=== PATIENT | female | born 1965 | race African-American/Black ===

== ENCOUNTER 2016-12-21 17:58 | Inpatient (IN) | payer OTHER ==
[~2016-12-21] VITALS: Ht 162.6 cm; Wt 97.0 kg
[~2016-12-21 17:58] MED LIST: CIPR500T4 PO; HYDRO10 PO; LAMO150T PO; LAMO25TA PO; LORTA5 PO; NORV5TAB PO; OXCA600T PO; PHEN100 PO; ZOFR4TAB3 SL
[2016-12-21 18:13] VITALS: BP 116/76; PULSE 90; RESP 18; TEMP 98.3; O2SAT 100
[2016-12-21] MEDS ORDERED: SODIUM CHLOR 0.9% 1000 ML INJ 1,000 ML IV SCH (18:17)
[2016-12-21] MEDS ORDERED: TRIL600T PO (18:28)
[2016-12-21] MEDS ORDERED: HYDR5TAB64 PO (18:28)
[2016-12-21] MEDS ORDERED: LAMO25TA PO (18:28)
[2016-12-21] MEDS ORDERED: SODIUM CHLORIDE 0.9% FLUSH 10 ML FLUSH IV FLUSH PRN ×2 (18:30→21:00)
[2016-12-21] MEDS ORDERED: SODIUM CHLOR 0.9% 1000 ML INJ 1,000 ML IV ONE (18:30)
--- NOTE | 2016-12-21 18:30 | PD ---
HPI Chief Complaint: generalized weakness Time Seen by Provider: 18:07 Travel History International Travel<30 days: No Contact w/Intl Traveler<30days: No History of Present Illness HPI Patient is a 51-year-old female with history of seizures, brain problems, chronic feet pain, who was brought to the emergency room by her with complaints of generalized weakness. Patient reports that she was diagnosed with a "something wrong with her brain" and would like her brain evaluated. Patient's reports that patient did see a neurologist and was told that she needed to see a neurosurgeon, reports that she has not seen a neurosurgeon yet. Patient's also reports that patient is weak, reports that she has had overall decreased by mouth intake over the past few months. does not believe the patient is eating enough food to "sustain life", reports "she's loosing too much weight." also reports that patient has chronic foot pain, she does have bunion to left foot. Reports "i need her feet looked at too because she keeps complaining of pain." Reports that she has been having "feet pain" for years. is concerned for overall generalized weakness as well as decompensation patient. Patient reports that she feels fine and has no complaints at this time. PFSH Past Medical History Anxiety: Yes Cancer: No Cardiovascular Problems: No Cerebrovascular Accident: No Diabetes: No Endocrine: No Genitourinary: No Headaches: Yes Hypertension: Yes Musculoskeletal: No Neurologic: Yes Psychiatric: No Reproductive: No Respiratory: No Immunizations Current: Yes Seizures: Yes Thyroid Disease: No Past Surgical History Other Surgery: No (LEFT FOOT BUNION REMOVED) Social History Alcohol Use: Yes (daily) Tobacco Use: Yes (1 PACK PER 3 DAYS) Substance Use: Yes (marijuana) Allergies-Medications (Allergen,Severity, Reaction): Coded Allergies: No Known Allergies (Unverified , 12/21/16) Reported Meds & Prescriptions Reported Meds & Active Scripts Active Reported Lamotrigine 25 Mg Tab 25 Mg PO DAILY Hydrocortisone 5 Mg Tab 5 Mg PO BID Take with food to decrease GI upset Trileptal (Oxcarbazepine) 600 Mg Tab 600 Mg PO BID Review of Systems General / Constitutional: No: Fever Eyes: No: Visual changes HENT: No: Headaches Cardiovascular: No: Chest Pain or Discomfort Respiratory: No: Shortness of Breath Gastrointestinal: Positive: Other (weight loss), No: Abdominal Pain Genitourinary: No: Dysuria Musculoskeletal: Positive: Pain (bilateral feet pain) Skin: No Rash Neurologic: Positive: Weakness Psychiatric: No: Depression Endocrine: No: Polydipsia Hematologic/Lymphatic: No: Easy Bruising Physical Exam Narrative GENERAL: Patient confused at bedside, alert only to person and place SKIN: Focused skin assessment warm/dry. HEAD: Atraumatic. Normocephalic. EYES: Pupils equal and round. No scleral icterus. No injection or drainage. ENT: No nasal bleeding or discharge. Mucous membranes pink and moist. NECK: Trachea midline. No JVD. CARDIOVASCULAR: Regular rate and rhythm. No murmur appreciated. RESPIRATORY: No accessory muscle use. Clear to auscultation. Breath sounds equal bilaterally. GASTROINTESTINAL: Abdomen soft, non-tender, nondistended. Hepatic and splenic margins not palpable. MUSCULOSKELETAL: No obvious deformities. No clubbing. No cyanosis. patient with swelling and bruising to b/l ankles NEUROLOGICAL: Awake and alert. No obvious cranial nerve deficits. Motor grossly within normal limits. Normal speech. Data Data Last Documented VS Vital Signs Date Time Temp Pulse Resp B/P Pulse Ox O2 Delivery O2 Flow Rate FiO2 12/21/16 18:22 93 18 100 Room Air 12/21/16 18:13 98.3 116/76 Orders Complete Blood Count With Diff (12/21/16 18:17) Comprehensive Metabolic Panel (12/21/16 18:17) Lipase (12/21/16 18:17) Prothrombin Time / Inr (Pt) (12/21/16 18:17) Act Partial Throm Time (Ptt) (12/21/16 18:17) Urinalysis - C+S If Indicated (12/21/16 18:17) Iv Access Insert/Monitor (12/21/16 18:17) Sodium Chlor 0.9% 1000 Ml Inj (Ns 1000 M (12/21/16 18:17) Sodium Chloride 0.9% Flush (Ns Flush) (12/21/16 18:30) Electrocardiogram (12/21/16 18:17) Chest, Single Ap (12/21/16 18:17) Sodium Chlor 0.9% 1000 Ml Inj (Ns 1000 M (12/21/16 18:30) Ct Brain W/O Iv Contrast(Rout) (12/21/16 18:30) Phenytoin (Dilantin) (12/21/16 18:31) Carbamazepine (Tegretol) (12/21/16 18:31) Ankle, Complete ([id number]) (12/21/16 ) Ankle, Complete ([id number]) (12/21/16 ) MDM Medical Decision Making Medical Screen Exam Complete: Yes Emergency Medical Condition: Yes Differential Diagnosis Differential includes seizure, intracranial hemorrhage, brain mass, electrolyte abnormality, UTI, chronic pain, pituitary hemorrhage Narrative Course Patient is a 51-year-old female who presents to emergency room with her with complaints of generalized weakness. reports that patient has been decompensating overall for the past year. Patient reports that he was told that patient need to see a neurosurgeon, that she has not seen one yet. Also reports the patient has chronic pain to her bilateral feet. reports concerns as patient has had overall decreased by mouth intake over the past few weeks. can only time me that patient has a history of "brain problems" as well as seizure history. Upon review of patient's previous records, it appears the patient did have a history of a pituitary tumor with hemorrhage, seizures as well as hypertension. Patient was seen in February 07, [address] Zhao and was told to have CT scans of her brain every 6 months she has history of brain tumors. CT at that time showed concerns for brain hemorrhage. MRI was obtained on 09/05/15 which showed pituitary hemorrhage. CT of the head ordered as patient's reports concerns that patient is more confused than baseline. Labs ordered to evaluate for electrolyte abnormalities as reports that patient has had overall decreased by mouth intake for the past few weeks. UA ordered to evaluate for possible signs of infection. Patient does have history of seizures, will check her antiepileptic levels as well Patient also with pain to b/l ankles with bruising - xray ordered to evaluate for possible fracture Cassy Rendon DO Dec 21, 2016 18:30
--- NOTE | 2016-12-21 18:53 | RADRPT ---
EXAM DATE/TIME: 12/21/2016 18:33 [facility] COMPARISON: CHEST SINGLE AP, February 01, 2015, 9:22. INDICATIONS : Cough. MEDICAL HISTORY : None. SURGICAL HISTORY : None. ENCOUNTER: Initial ACUITY: 1 day PAIN SCORE: 0/10 LOCATION: Bilateral chest FINDINGS: A single view of the chest demonstrates the lungs to be symmetrically aerated without evidence of mas s, infiltrate or effusion. The cardiomediastinal contours are unremarkable. Osseous structures are intact. CONCLUSION: The lungs are clear. Shlomo Ojeda MD on December 21, 2016 at 18:50 Board Certified Radiologist. This report was verified electronically.
[2016-12-21 19:00] VITALS: BP 117/69; PULSE 72; RESP 14; O2SAT 98
--- NOTE | 2016-12-21 19:08 | RADRPT ---
EXAM DATE/TIME: 12/21/2016 18:46 [facility] COMPARISON: No previous studies available for comparison. INDICATIONS : Right ankle pain, denies injury MEDICAL HISTORY : None. SURGICAL HISTORY : None. ENCOUNTER: Initial ACUITY: 1 month PAIN SCORE: 8/10 LOCATION: Right Ankle FINDINGS: Three view exam was performed of the right ankle. The bony structures are in normal alignment. No e vidence of fracture, dislocation, or soft tissue swelling. The ankle mortise is intact. No radiopaq ue foreign bodies are seen. Bony mineralization is normal. CONCLUSION: Negative exam. Shlomo Ojeda MD on December 21, 2016 at 19:06 Board Certified Radiologist. This report was verified electronically.
--- NOTE | 2016-12-21 19:09 | RADRPT ---
EXAM DATE/TIME: 12/21/2016 18:48 [facility] COMPARISON: No previous studies available for comparison. INDICATIONS : Left ankle pain, denies injury MEDICAL HISTORY : None. SURGICAL HISTORY : None. ENCOUNTER: Initial ACUITY: 1 month PAIN SCORE: 8/10 LOCATION: Left Ankle FINDINGS: There is in oblique fracture of the distal fibula and there is regional osteopenia of the distal fibu la. No significant angulation or displacement. Moderate soft tissue swelling is present laterally. The distal tibia and talus is intact. CONCLUSION: Nondisplaced fracture of the distal fibula. Shlomo Ojeda MD on December 21, 2016 at 19:06 Board Certified Radiologist. This report was verified electronically.
--- NOTE | 2016-12-21 19:16 | PD ---
Physical Exam Narrative RECTAL EXAM: No masses or tenderness, stool is brown. Hemaprompt was done to evaluate for Hemoccult-positive stool. This was Hemoccult negative. The control was positive Data Data Last Documented VS Vital Signs Date Time Temp Pulse Resp B/P Pulse Ox O2 Delivery O2 Flow Rate FiO2 12/21/16 18:22 93 18 100 Room Air 12/21/16 18:13 98.3 116/76 Orders Complete Blood Count With Diff (12/21/16 18:17) Comprehensive Metabolic Panel (12/21/16 18:17) Lipase (12/21/16 18:17) Prothrombin Time / Inr (Pt) (12/21/16 18:17) Act Partial Throm Time (Ptt) (12/21/16 18:17) Urinalysis - C+S If Indicated (12/21/16 18:17) Iv Access Insert/Monitor (12/21/16 18:17) Sodium Chlor 0.9% 1000 Ml Inj (Ns 1000 M (12/21/16 18:17) Sodium Chloride 0.9% Flush (Ns Flush) (12/21/16 18:30) Electrocardiogram (12/21/16 18:17) Chest, Single Ap (12/21/16 18:17) Sodium Chlor 0.9% 1000 Ml Inj (Ns 1000 M (12/21/16 18:30) Ct Brain W/O Iv Contrast(Rout) (12/21/16 18:30) Phenytoin (Dilantin) (12/21/16 18:31) Carbamazepine (Tegretol) (12/21/16 18:31) Ankle, Complete (Lad0imt) (12/21/16 ) Ankle, Complete (Bui1imr) (12/21/16 ) Thyroid Stimulating Hormone (12/21/16 18:58) Ice/Cold Pack (12/21/16 19:16) Crutches (12/21/16 19:16) Splint Or Brace Apply/Monitor (12/21/16 19:17) Type And Screen (12/21/16 19:50) Blood Product Administration .UPON TRANSFUSION (12/21/16 19:50) Sodium Chlor 0.9% 250 Ml Inj (Ns 250 Ml (12/21/16 20:00) Red Blood Cells (Rbc) (12/21/16 20:40) Potassium Chloride Eff (K-Lyte Cl Eff) (12/21/16 20:45) Admit To Inpatient (12/21/16 ) Code Status (12/21/16 20:51) Vital Signs (Adult) Q4H (12/21/16 20:51) Activity Oob With Assistance (12/21/16 20:51) Diet Heart Healthy (12/22/16 Breakfast) Sodium Chloride 0.9% Flush (Ns Flush) (12/21/16 21:00) Sodium Chloride 0.9% Flush (Ns Flush) (12/21/16 21:00) Acetaminophen (Tylenol) (12/21/16 21:00) Ondansetron Inj (Zofran Inj) (12/21/16 21:00) Comprehensive Metabolic Panel (12/22/16 06:00) Complete Blood Count With Diff (12/22/16 06:00) Pt Request For Service (12/21/16 20:51) Case Management Consult (12/21/16 20:51) Scd Bilateral/Knee High MANUELA.BID (12/21/16 20:51) Jay Jay Bilateral/Knee High MANUELA.QSHIFT (12/21/16 20:51) Acetaminophen (Tylenol) (12/21/16 21:00) Naloxone Inj (Narcan Inj) (12/21/16 21:00) Inpatient Certification (12/21/16 ) Albuterol-Ipratropium Neb (Duoneb Neb) (12/21/16 21:00) Enalaprilat Inj (Vasotec Inj) (12/21/16 21:00) Admit Order (Ed Use Only) (12/21/16 20:52) Lamotrigine (Lamictal) (12/22/16 09:00) Oxcarbazepine (Trileptal) (12/21/16 21:00) Labs Laboratory Tests Test 12/21/16 12/21/16 19:10 20:00 White Blood Count 7.9 TH/MM3 Red Blood Count 1.51 MIL/MM3 Hemoglobin 5.4 GM/DL Hematocrit 15.5 % Mean Corpuscular Volume 102.4 FL Mean Corpuscular Hemoglobin 35.7 PG Mean Corpuscular Hemoglobin 34.8 % Concent Red Cell Distribution Width 15.2 % Platelet Count 219 TH/MM3 Mean Platelet Volume 8.1 FL Neutrophils (%) (Auto) 77.2 % Lymphocytes (%) (Auto) 19.1 % Monocytes (%) (Auto) 3.4 % Eosinophils (%) (Auto) 0.0 % Basophils (%) (Auto) 0.3 % Neutrophils # (Auto) 6.1 TH/MM3 Lymphocytes # (Auto) 1.5 TH/MM3 Monocytes # (Auto) 0.3 TH/MM3 Eosinophils # (Auto) 0.0 TH/MM3 Basophils # (Auto) 0.0 TH/MM3 CBC Comment DIFF FINAL Differential Comment Prothrombin Time 11.5 SEC Prothromb Time International 1.0 RATIO Ratio Activated Partial 28.4 SEC Thromboplast Time Sodium Level 137 MEQ/L Potassium Level 2.7 MEQ/L Chloride Level 96 MEQ/L Carbon Dioxide Level 29.7 MEQ/L Anion Gap 11 MEQ/L Blood Urea Nitrogen 12 MG/DL Creatinine 0.69 MG/DL Estimat Glomerular Filtration 108 ML/MIN Rate Random Glucose 113 MG/DL Calcium Level 8.4 MG/DL Total Bilirubin 1.0 MG/DL Aspartate Amino Transf 29 U/L (AST/SGOT) Alanine Aminotransferase 19 U/L (ALT/SGPT) Alkaline Phosphatase 133 U/L Total Protein 6.4 GM/DL Albumin 2.1 GM/DL Lipase 56 U/L Phenytoin (Dilantin) Level 0.4 MCG/ML Carbamazepine (Tegretol) Level LESS THAN 0.5 MCG/ML Blood Type A POSITIVE Antibody Screen NEGATIVE Crossmatch Leukocyte-Reduced Red Blood Cells Blood Bank Comment [facility] Medical Record Reviewed: Yes Supervised Visit with TRINA: No Interpretation(s) Last Impressions Head CT 12/21/16 1830 Signed Impressions: Service Date/Time: Wednesday, December 21, 2016 18:59 - CONCLUSION: 1. No acute findings in the brain. Age-appropriate atrophy. 2. Stable appearance 2 hyperdense sella, unchanged from August 2015. 3. Opacification of the sphenoid sinus with possible air-fluid level, a new finding. Shlomo Ojeda MD Chest X-Ray 12/21/16 1817 Signed Impressions: Service Date/Time: Wednesday, December 21, 2016 18:33 - CONCLUSION: The lungs are clear. Shlomo Ojeda MD Ankle X-Ray 12/21/16 0000 Signed Impressions: Service Date/Time: Wednesday, December 21, 2016 18:46 - CONCLUSION: Negative exam. Shlomo Ojeda MD Ankle X-Ray 12/21/16 0000 Signed Impressions: Service Date/Time: Wednesday, December 21, 2016 18:48 - CONCLUSION: Nondisplaced fracture of the distal fibula. Shlomo Ojeda MD Narrative Course During the course of the patients emergency department visit, the patients history, examination, and differential diagnosis were reviewed with the patient. The patient had IV access obtained and blood work sent for analysis. The patient was placed on a shelter monitor with oximetry and blood pressure monitoring. The patient was checked out to me by Dr. Rendon who requested that I review the patient's laboratory studies and disposition the patient. She reports that the patient came in with generalized weakness, reported poor by mouth intake, increase in alteration of mentation. The patient at baseline has altered mental status according to herself and the family. The patient according to the record has a history of pituitary hemorrhage in August 2015. The patient had an EKG done on arrival. The patient's EKG shows an incomplete right bundle branch block, nonspecific ST-T wave abnormalities, downsloping of ST segment V1, V2, V3. The patient was initially provided 2 L in total of normal saline IV fluid bolus. The patients laboratory studies were reviewed and remarkable for a hemoglobin of 5.4. The patient was typed and screened, typed and crossmatched for 4 units of packed red blood cells, 2 units will be administered once available. Rectal examination will be done to evaluate for possible Hemoccult positive stool. CMP is remarkable for a potassium at 2.7, chloride 96, glucose 113, calcium 8.3 , alkaline phosphatase 133, lipase 56, PT PTT unremarkable, Dilantin level 0.4, carbamazepine, less than 0.5. The patient's stool was Hemoccult negative. Radiology studies were reviewed and remarkable for a chest x-ray that shows no acute abnormality. A right ankle x-ray shows no acute abnormality. A left ankle x-ray reveals an oblique fracture of the distal fibula and there is a regional area of osteopenia of the distal fibula. No significant angulation or displacement. Moderate soft tissue swelling present laterally. The distal fibula and talus is intact. The patient was placed in a short posterior leg splint. The patient will be admitted to the hospital related to generalized weakness, symptomatic anemia, left distal fibula fracture that is nondisplaced related to a recent fall. The patients results were discussed with the patient, including the plan of care. I explained that further testing and/ or monitoring is indicated based on the patients history, examination, and/ or laboratory findings. Therefore, I recommended admission for additional evaluation. The patient expressed understanding and was agreeable with this plan. The patient was admitted to the hospital in stable condition and [facility] Physician Communication Physician Communication The patient's case will be discussed with Dr. Henson for admission. Diagnosis Primary Impression: Generalized weakness Additional Impressions: Symptomatic anemia Closed left fibular fracture Qualified Code: S82.832A - Closed fracture of distal end of left fibula, unspecified fracture morphology, initial encounter Hypokalemia Admitting Information Admitting Physician Requests: Admit Iman Ray MD Dec 21, 2016 19:16
--- NOTE | 2016-12-21 19:23 | RADRPT ---
EXAM DATE/TIME: 12/21/2016 18:59 [facility] COMPARISON: CT BRAIN W/O CONTRAST, February 01, 2015, 9:39. MRI BRAIN W & W/O CONTRAST, September 05, 2015, 18:40. C T BRAIN W/O CONTRAST, September 05, 2015, 17:04. INDICATIONS : Altered mental status. RADIATION DOSE: 32.74 CTDIvol (mGy) MEDICAL HISTORY : Seizures. Hypertension. SURGICAL HISTORY : None. ENCOUNTER: Initial ACUITY: 1 day PAIN SCALE: 1/10 LOCATION: cranial TECHNIQUE: Multiple contiguous axial images were obtained of the head. Using automated exposure control and adj ustment of the mA and/or kV according to patient size, radiation dose was kept as low as reasonably a chievable to obtain optimal diagnostic quality images. FINDINGS: CEREBRUM: The ventricles are normal for age. No evidence of midline shift, mass lesion, hemorrhage or acute in farction. No extra-axial fluid collections are seen. There is focal rounded hyperdensity in the jenna la which is unchanged in appearance from prior studies in August 2015 (CT and dedicated MRI of the p ituitary). POSTERIOR FOSSA: The cerebellum and brainstem are intact. The 4th ventricle is midline. The cerebellopontine angle i s unremarkable. EXTRACRANIAL: The visualized portion of the orbits is intact. There is opacification of the central and left sphen oid sinus with possible air-fluid level. SKULL: The calvaria is intact. No evidence of skull fracture. CONCLUSION: 1. No acute findings in the brain. Age-appropriate atrophy. 2. Stable appearance 2 hyperdense sella, unchanged from August 2015. 3. Opacification of the sphenoid sinus with possible air-fluid level, a new finding. Shlomo Ojeda MD on December 21, 2016 at 19:16 Board Certified Radiologist. This report was verified electronically.
[2016-12-21 19:42] LABS: AUTOMATED NEUTROPHIL # 6.1 TH/MM3 (1.8-7.7); BASOPHIL % 0.3 % (0.0-2.0); LYMPH % 19.1 % (9.0-44.0); LYMPHOCYTE # 1.5 TH/MM3 (1.0-4.8); MEAN CELL VOLUME 102.4 FL (80.0-100.0); MEAN CORPUSCULAR HEMOGLOBIN 35.7 PG (27.0-34.0); MEAN CORPUSCULAR HGB CONC 34.8 % (32.0-36.0); MONO % 3.4 % (0.0-8.0); NEUT % 77.2 % (16.0-70.0); PLATELET COUNT 219 TH/MM3 (150-450); RED BLOOD COUNT 1.51 MIL/MM3 (4.00-5.30); RED CELL DISTRIBUTION WIDTH 15.2 % (11.6-17.2); WHITE BLOOD COUNT 7.9 TH/MM3 (4.0-11.0)
[2016-12-21 19:48] LABS: HEMO FLAGS DIFF FINAL
[2016-12-21 19:49] LABS: HEMATOCRIT 15.5 % (35.0-46.0)
[2016-12-21 19:54] LABS: APTT (PATIENT) 28.4 SEC (24.3-30.1); PROTHROMBIN TIME - PATIENT 11.5 SEC (9.8-11.6)
[2016-12-21] MEDS ORDERED: SODIUM CHLOR 0.9% 250 ML INJ 250 ML IV ONE (20:00)
[2016-12-21 20:30] LABS: ALKALINE PHOSPHATASE 133 U/L (45-117); ALT (GPT) 19 U/L (10-53); ANION GAP 11 MEQ/L (5-15); AST (GOT) 29 U/L (15-37); BICARBONATE 29.7 MEQ/L (21.0-32.0); BLOOD UREA NITROGEN 12 MG/DL (7-18); CHLORIDE 96 MEQ/L (98-107); GLOMERULAR FILTRATION RATE 108 ML/MIN (>89); SODIUM (NA) 137 MEQ/L (136-145)
[2016-12-21 20:32] LABS: POTASSIUM 2.7 MEQ/L (3.5-5.1)
[2016-12-21] MEDS ORDERED: POTASSIUM CHLORIDE 25 MEQ EFFERVESCENT TAB PO ONE (20:45)
--- NOTE | 2016-12-21 20:56 | HHI.HP ---
[facility] Primary Care Physician Non-Staff Admission Diagnosis Generalized Weakness, Anemia, hypokalemia, fibula fx Diagnoses: (1) Symptomatic anemia (2) Generalized weakness (3) Hypokalemia (4) Closed left fibular fracture (5) Pituitary hemorrhage Chief Complaint: Generalized weakness Travel History International Travel<30 Days: No Contact w/Intl Traveler <30 Da: No Traveled to Known Affected Are: No History of Present Illness 51 year-old -[place] female with a history of pituitary gland tumor, seizure disorder and a prior history of intracranial August 2015 was brought to the ED by her for evaluation of generalized weakness and decreased appetite over the past few months with significant weight loss. Abnormal labs include H&H 5.4/15.5 however patient denies any GI bleed and she had negative Hemoccult. She also denies any menses over the past few weeks to months secondary to medication as reported. Nevertheless she denies any . She complains of chronic left foot secondary to bunion however she was recently diagnosed with a closed left fibular fracture. She is quite a poor historian so is her . But patient also presented with alteration in her mentation for which head CT was ordered. Review of Systems Other 12 systems reviewed and are negative except for the one mentioned in history of present illness Past Family Social History Past Medical History Anxiety: Yes Headaches: Yes Hypertension: Yes Seizures: Yes Past Surgical History No (LEFT FOOT BUNION REMOVED) Reported Medications Lamotrigine 25 Mg Tab 25 Mg PO DAILY Hydrocortisone 5 Mg Tab 5 Mg PO BID Take with food to decrease GI upset Trileptal (Oxcarbazepine) 600 Mg Tab 600 Mg PO BID Allergies: Coded Allergies: No Known Allergies (Unverified , 12/21/16) Family History Family history positive for diabetes type 2 Social History Alcohol Use: Yes (daily) Tobacco Use: Yes (1 PACK PER 3 DAYS) Substance Use: Yes (marijuana) Physical Exam Vital Signs Vital Signs Date Time Temp Pulse Resp B/P Pulse Ox O2 Delivery O2 Flow Rate FiO2 12/21/16 18:22 93 18 100 Room Air 12/21/16 18:13 98.3 90 18 116/76 100 Physical Exam GENERAL: This is a well-nourished, well-developed patient, in no apparent distress. SKIN: No rashes, ecchymoses or lesions. Cool and dry. HEAD: Atraumatic. Normocephalic. No temporal or scalp tenderness. EYES: Pupils equal round and reactive. Extraocular motions intact. No scleral icterus. No injection or drainage. ENT: Nose without bleeding, purulent drainage or septal hematoma. Throat without erythema, tonsillar hypertrophy or exudate. Uvula midline. Airway patent. NECK: Trachea midline. No JVD or lymphadenopathy. Supple, nontender, no meningeal signs. CARDIOVASCULAR: Regular rate and rhythm without murmurs, gallops, or rubs. RESPIRATORY: Clear to auscultation. Breath sounds equal bilaterally. No wheezes , rales, or rhonchi. GASTROINTESTINAL: Abdomen soft, non-tender, nondistended. No hepato-splenomegaly , or palpable masses. No guarding. MUSCULOSKELETAL: Extremities without clubbing, cyanosis, or edema. Dressing/ cast over left foot NEUROLOGICAL: Awake and alert. Cranial nerves II through XII intact. Motor and sensory grossly within normal limits. Five out of 5 muscle strength in all muscle groups. Normal speech. Laboratory Laboratory Tests Test 12/21/16 12/21/16 19:10 20:00 White Blood Count 7.9 Red Blood Count 1.51 Hemoglobin 5.4 Hematocrit 15.5 Mean Corpuscular Volume 102.4 Mean Corpuscular Hemoglobin 35.7 Mean Corpuscular Hemoglobin 34.8 Concent Red Cell Distribution Width 15.2 Platelet Count 219 Mean Platelet Volume 8.1 Neutrophils (%) (Auto) 77.2 Lymphocytes (%) (Auto) 19.1 Monocytes (%) (Auto) 3.4 Eosinophils (%) (Auto) 0.0 Basophils (%) (Auto) 0.3 Neutrophils # (Auto) 6.1 Lymphocytes # (Auto) 1.5 Monocytes # (Auto) 0.3 Eosinophils # (Auto) 0.0 Basophils # (Auto) 0.0 CBC Comment DIFF FINAL Differential Comment Prothrombin Time 11.5 Prothromb Time International 1.0 Ratio Activated Partial 28.4 Thromboplast Time Sodium Level 137 Potassium Level 2.7 Chloride Level 96 Carbon Dioxide Level 29.7 Anion Gap 11 Blood Urea Nitrogen 12 Creatinine 0.69 Estimat Glomerular Filtration 108 Rate Random Glucose 113 Calcium Level 8.4 Total Bilirubin 1.0 Aspartate Amino Transf 29 (AST/SGOT) Alanine Aminotransferase 19 (ALT/SGPT) Alkaline Phosphatase 133 Total Protein 6.4 Albumin 2.1 Lipase 56 Phenytoin (Dilantin) Level 0.4 Carbamazepine (Tegretol) Level LESS THAN 0.5 Blood Type A POSITIVE Antibody Screen NEGATIVE Crossmatch Leukocyte-Reduced Red Blood Cells Blood Bank Comment Result Diagram: 12/21/16190912/21/161909 Imaging Last Impressions Head CT 12/21/161829 Signed Impressions: Service Date/Time: Wednesday, December 21, 2016 18:59 - CONCLUSION: 1. No acute findings in the brain. Age-appropriate atrophy. 2. Stable appearance 2 hyperdense sella, unchanged from August 2015. 3. Opacification of the sphenoid sinus with possible air-fluid level, a new finding. Shlomo Ojeda MD Chest X-Ray 12/21/167 Signed Impressions: Service Date/Time: Wednesday, December 21, 2016 18:33 - CONCLUSION: The lungs are clear. Shlomo Ojeda MD Ankle X-Ray 12/21/16 0000 Signed Impressions: Service Date/Time: Wednesday, December 21, 2016 18:46 - CONCLUSION: Negative exam. Shlomo Ojeda MD Assessment and Plan Problem List: (1) Symptomatic anemia ICD Code: D64.9 Status: Acute (2) Pituitary hemorrhage ICD Code: E23.6 Status: Acute (3) Closed left fibular fracture ICD Code: S82.402A Status: Acute (4) Hypokalemia ICD Code: E87.6 Status: Acute (5) Generalized weakness ICD Code: R53.1 Status: Acute (6) Seizure disorder ICD Code: G40.909 Status: Acute (7) Toxic metabolic encephalopathy ICD Code: G92 Status: Acute Assessment and Plan 51-year-old female with Symptomatic anemia Transfuse 2 units PRBC and monitor H/H Although Hemoccult negative, will consult GI evaluation for possible panendoscopy Check iron study and consider consultation from hematology Hypokalemia Replace electrolyte and monitor History of Seizure disorder Resume outpatient medications including Lamictal and Trileptal, monitor levels Closed left fibular fracture: Conservative management. PT consult to treat and eval Generalized weakness: PT consult to treat and eval History of pituitary tumor: Outpatient management with neurosurgery CT head noted and review by me with finding of Opacification of the sphenoid sinus with possible air-fluid level, a new finding DVT prophylaxis Physician Certification 2 Midnight Certification Type: Admission for Inpatient Services Order for Inpatient Services The services are ordered in accordance with Medicare regulations or non- Medicare payer requirements, as applicable. In the case of services not specified as inpatient-only, they are appropriately provided as inpatient services in accordance with the 2-midnight benchmark. Estimated LOS (days): 2 days is the estimated time the patient will need to remain in the hospital, assuming treatment plan goals are met and no additional complications. Post-Hospital Plan: Not yet determined Problem Qualifiers (1) Closed left fibular fracture: Qualified Code: S82.832A - Closed fracture of distal end of left fibula, unspecified fracture morphology, initial encounter Elio Henson MD Dec 21, 2016 20:56
[2016-12-21 21:00] VITALS: BP 112/64; PULSE 78; RESP 14; O2SAT 97
[2016-12-21] MEDS ORDERED: ACETAMINOPHEN 325 MG TAB PO PRN (21:00)
[2016-12-21] MEDS ORDERED: ONDANSETRON HCL 4 MG/2 ML VIAL IVP PRN (21:00)
[2016-12-21] MEDS ORDERED: NALOXONE HCL 0.4 MG/ML AMP IV PRN (21:00)
[2016-12-21] MEDS ORDERED: RESP: ALBUTEROL 2.5 MG/IPRATROPIUM 0.5 MG NEB (PRN) NEB (21:00)
[2016-12-21 22:00] VITALS: BP 136/88; PULSE 88; RESP 20; TEMP 97.3; O2SAT 100
[2016-12-21] MEDS: SODIUM CHLORIDE 0.9% FLUSH 10 ML FLUSH IV FLUSH SCH (22:15)
[2016-12-21 23:31] VITALS: BP 121/76; PULSE 86; RESP 17; TEMP 97.1; O2SAT 100
[2016-12-21 23:45] VITALS: BP 117/71; PULSE 92; RESP 16; TEMP 96.8; O2SAT 100
[2016-12-22] VITALS (7 sets, daily range): BP systolic 129–158; BP diastolic 83–100; PULSE 78–96; RESP 17–20; TEMP 95.8–97.4; O2SAT 100
[2016-12-22] MEDS ORDERED: POTASSIUM CHLORIDE 10 MEQ CONTROLLED RELEASE TAB PO ONE ×2 (00:30→08:45)
[2016-12-22] MEDS: OXcarbazepine 600 MG TAB PO SCH ×3 (01:28→20:08)
[2016-12-22 07:21] LABS: AUTOMATED NEUTROPHIL # 6.2 TH/MM3 (1.8-7.7); BASOPHIL % 0.4 % (0.0-2.0); EOSINOPHIL % 0.1 % (0.0-4.0); HEMATOCRIT 27.5 % (35.0-46.0); HEMO FLAGS DIFF FINAL; LYMPH % 25.3 % (9.0-44.0); LYMPHOCYTE # 2.3 TH/MM3 (1.0-4.8); MEAN CELL VOLUME 91.6 FL (80.0-100.0); MEAN CORPUSCULAR HEMOGLOBIN 31.2 PG (27.0-34.0); MEAN CORPUSCULAR HGB CONC 34.1 % (32.0-36.0); MONO % 4.5 % (0.0-8.0); NEUT % 69.7 % (16.0-70.0); PLATELET COUNT 163 TH/MM3 (150-450); RED CELL DISTRIBUTION WIDTH 20.9 % (11.6-17.2); WHITE BLOOD COUNT 8.9 TH/MM3 (4.0-11.0)
[2016-12-22 07:40] LABS: ALT (GPT) 19 U/L (10-53); ANION GAP 10 MEQ/L (5-15); AST (GOT) 31 U/L (15-37); BICARBONATE 25.7 MEQ/L (21.0-32.0); BLOOD UREA NITROGEN 13 MG/DL (7-18); CHLORIDE 98 MEQ/L (98-107); GLOMERULAR FILTRATION RATE 157 ML/MIN (>89); SODIUM (NA) 134 MEQ/L (136-145)
[2016-12-22 07:43] LABS: POTASSIUM 2.8 MEQ/L (3.5-5.1)
[2016-12-22 07:44] LABS: ALKALINE PHOSPHATASE 124 U/L (45-117); TOTAL BILIRUBIN ADULT 2.3 MG/DL (0.2-1.0); TRANSFERRIN IRON PROFILE 121 MG/DL (200-360)
--- NOTE | 2016-12-22 09:03 | PD.CONS ---
HPI History of Present Illness This is a 51 year old female who came to the ER for evaluation of generalized weakness and decreased appetite with significant weight loss over the past several months. She was found to have severe anemia with an H/H of 5.4/15.5. She is an extremely poor historian. She denies any obvious blood loss. She states she has been tired and has been having shortness of breath on exertion and that this improves with rest. She reports that she has a poor appetite and does admit to losing weight, but cannot tell me how much weight has been lost or over what time period. She denies any difficulty swallowing, nausea, vomiting, heartburn, reflux, abdominal pain, bowel changes, constipation, diarrhea, melena, or hematochezia. She denies ever being told that she was anemic in the past or any prior hx of GI bleeding. She has never had an EGD or colonoscopy. She denies the use of NSAIDs. The EMR mentions daily ETOH use, although she is unable to quantify this for me. She does mention that both her mother and maternal aunt had cancer, but she does not know what type. She has a splint and reginaldo wrap to the LLE, but she cannot tell me why. (Michelle Steven) PFSH Past Medical History Anxiety Headaches Hypertension Seizure D/O Pituitary gland tumor ICH Past Surgical History Left bunion removal (Michelle Steven) Coded Allergies: No Known Allergies (Unverified , 12/21/16) Medications Allergies Coded Allergies Type Severity Reaction Last Updated Verified No Known Allergies 12/21/16 No Active Scripts Medications Dose Route/Sig Days Date Category Dose Instructions Lamotrigine 25 Mg Tab 25 Mg PO DAILY 12/21/16 Reported Hydrocortisone 5 Mg Tab 5 Mg PO BID 12/21/16 Reported Take with food to decrease GI upset Trileptal (Oxcarbazepine) 600 Mg Tab 600 Mg PO BID 12/21/16 Reported Family History States mother and maternal aunt both had cancer, does not know what type Social History Daily ETOH use-unable to quantify Smokes 1/3 pack of cigarettes per day (+) Marijuana use (Michelle Steven) Review of Systems Constitutional: COMPLAINS OF: Fatigue, Weight loss, Change in appetite, DENIES : Fever, Chills, Dizziness Respiratory: COMPLAINS OF: Shortness of breath, DENIES: Cough Gastrointestinal: COMPLAINS OF: Anorexia, DENIES: Abdominal pain, Black stools , Bloody stools, Constipation, Diarrhea, Nausea, Vomiting, Heartburn, Hematemesis Integumentary: DENIES: Abnormal pigmentation, Rash Neurologic: DENIES: Headache Psychiatric: DENIES: Confusion (Michelle Steven) GI Exam Vitals I&O Vital Signs Date Time Temp Pulse Resp B/P Pulse Ox O2 Delivery O2 Flow Rate FiO2 12/22/16 03:29 97.1 86 100 12/22/16 03:06 96.8 78 17 100 12/21/16 23:45 96.8 92 16 117/71 100 12/21/16 23:31 97.1 86 17 121/76 100 12/21/16 22:00 97.3 88 20 136/88 100 12/21/16 22:00 Room Air 12/21/16 21:00 78 14 112/64 97 Room Air 12/21/16 19:00 72 14 117/69 98 Room Air 12/21/16 18:22 93 18 100 Room Air 12/21/16 18:13 98.3 90 18 116/76 100 I/O 12/21/16 12/21/16 12/21/16 12/22/16 12/22/16 12/22/16 07:00 15:00 23:00 07:00 15:00 23:00 Intake Total 936 ml Balance 936 ml Intake Oral 240 ml Packed Cells 696 ml # Voids 1 # Bowel Movements 0 Imaging Last Impressions Head CT 12/21/16 1830 Signed Impressions: Service Date/Time: Wednesday, December 21, 2016 18:59 - CONCLUSION: 1. No acute findings in the brain. Age-appropriate atrophy. 2. Stable appearance 2 hyperdense sella, unchanged from August 2015. 3. Opacification of the sphenoid sinus with possible air-fluid level, a new finding. Shlomo Ojeda MD Chest X-Ray 12/21/16 1817 Signed Impressions: Service Date/Time: Wednesday, December 21, 2016 18:33 - CONCLUSION: The lungs are clear. Shlomo Ojeda MD Ankle X-Ray 12/21/16 0000 Signed Impressions: Service Date/Time: Wednesday, December 21, 2016 18:46 - CONCLUSION: Negative exam. Shlomo Ojeda MD Laboratory Test 12/21/16 12/21/16 12/21/16 12/22/16 19:10 20:00 21:00 06:43 White Blood Count 7.9 TH/MM3 8.9 TH/MM3 Red Blood Count 1.51 MIL/MM3 3.00 MIL/MM3 Hemoglobin 5.4 GM/DL 9.4 GM/DL Hematocrit 15.5 % 27.5 % Mean Corpuscular Volume 102.4 FL 91.6 FL Mean Corpuscular Hemoglobin 35.7 PG 31.2 PG Mean Corpuscular Hemoglobin 34.8 % 34.1 % Concent Red Cell Distribution Width 15.2 % 20.9 % Platelet Count 219 TH/MM3 163 TH/MM3 Mean Platelet Volume 8.1 FL 7.9 FL Neutrophils (%) (Auto) 77.2 % 69.7 % Lymphocytes (%) (Auto) 19.1 % 25.3 % Monocytes (%) (Auto) 3.4 % 4.5 % Eosinophils (%) (Auto) 0.0 % 0.1 % Basophils (%) (Auto) 0.3 % 0.4 % Neutrophils # (Auto) 6.1 TH/MM3 6.2 TH/MM3 Lymphocytes # (Auto) 1.5 TH/MM3 2.3 TH/MM3 Monocytes # (Auto) 0.3 TH/MM3 0.4 TH/MM3 Eosinophils # (Auto) 0.0 TH/MM3 0.0 TH/MM3 Basophils # (Auto) 0.0 TH/MM3 0.0 TH/MM3 CBC Comment DIFF FINAL DIFF FINAL Differential Comment Prothrombin Time 11.5 SEC Prothromb Time International 1.0 RATIO Ratio Activated Partial 28.4 SEC Thromboplast Time Sodium Level 137 MEQ/L 134 MEQ/L Potassium Level 2.7 MEQ/L 2.8 MEQ/L Chloride Level 96 MEQ/L 98 MEQ/L Carbon Dioxide Level 29.7 MEQ/L 25.7 MEQ/L Anion Gap 11 MEQ/L 10 MEQ/L Blood Urea Nitrogen 12 MG/DL 13 MG/DL Creatinine 0.69 MG/DL 0.50 MG/DL Estimat Glomerular Filtration 108 ML/MIN 157 ML/MIN Rate Random Glucose 113 MG/DL 88 MG/DL Calcium Level 8.4 MG/DL 7.9 MG/DL Total Bilirubin 1.0 MG/DL 2.3 MG/DL Aspartate Amino Transf 29 U/L 31 U/L (AST/SGOT) Alanine Aminotransferase 19 U/L 19 U/L (ALT/SGPT) Alkaline Phosphatase 133 U/L 124 U/L Total Protein 6.4 GM/DL 5.9 GM/DL Albumin 2.1 GM/DL 1.9 GM/DL Lipase 56 U/L Thyroid Stimulating Hormone 1.880 uIU/ML 3rd Gen Phenytoin (Dilantin) Level 0.4 MCG/ML Carbamazepine (Tegretol) Level LESS THAN 0.5 MCG/ML Blood Type A POSITIVE A POSITIVE Antibody Screen NEGATIVE Blood Bank Comment Crossmatch Leukocyte-Reduced Red Blood Cells Iron Level 166 MCG/DL Total Iron Binding Capacity 169 MCG/DL Percent Iron Saturation 98.0 % Physical Examination HEENT: Normocephalic; atraumatic; no jaundice. CHEST: CTA, bases diminished CARDIAC: RRR ABDOMEN: Soft, nondistended, nontender; no hepatosplenomegaly; bowel sounds are present in all four quadrants. EXTREMITIES: Splint reginaldo wrap to LLE SKIN: Normal; no rash; no jaundice. SURGICAL RN: No focal deficits; Lethargic and oriented times three, flat affect, poor historian. (Michelle StevenP) Assessment and Plan Plan ASSESSMENT: - Severe anemia. H/H of 5.4/15.5. S/P 2 units of PRBC and this is now 9.4/27.5. Iron 166, CFCD191, Iron Saturation 98%- Of note, these were obtained AFTER 2 units of PRBC. No obvious blood loss. (+) Anorexia, (+) Weight loss. No other GI symptoms. No hx of PUD. No hx of EGD/Colonoscopy. No NSAIDs. Will plan for egd/colonoscopy in am. - Anorexia, Abnormal weight loss. According to EMR, this has been over several months. The patient is a poor historian and cannot quantify the weight loss or additional detail. EGD/Colonoscopy in am. Consider CT scan abdomen and pelvis. - Elevated LFTs. T. Bili 2.3, AST 31, ALT 19, Alk Phosph 124. Pt did have elevated lfts in the past. She does drink daily - Generalized weakness, likely secondary to above. - Hypokalemia. K+ 2.8. Replacement per primary - Closed left fibular fracture. Per ortho. PLAN: - Plan for egd/colonoscopy in am - Obtain consents - Clear liquids - NPO after MN - Golytely prep - Monitor labs - Transfuse as necessary - Consider CT scan abdomen/pelvis after egd/colon - Supportive care - Further recommendations to follow based on results of above - Pt seen and examined by Dr. Lerma and myself and this note is written on his behalf (Michelle Steven) Physician Comments Patient seen and examined Agree with above Continue with current supportive care Monitor labs Will plan for an EGD and a colonoscopy tomorrow (Davin Lerma MD) Michelle Steven Dec 22, 2016 09:03 Davin Lerma MD Dec 23, 2016 00:19
[2016-12-22] MEDS: lamoTRIgine 25 MG TAB PO SCH (09:26)
[2016-12-22] MEDS: POTASSIUM CHLOR 20 MEQ PREMIX 100 ML IV SCH ×2 (09:26→12:54)
[2016-12-22] MEDS: SODIUM CHLORIDE 0.9% FLUSH 10 ML FLUSH IV FLUSH SCH ×2 (09:27→20:08)
--- NOTE | 2016-12-22 14:21 | HHI.PR ---
Subjective Remarks Follow up for anemia and confusion. Patient seen and examined while sitting in chair. She is slow to respond to questioning and is a poor historian, easily gets confused and hard to follow a conversation. She denies any blood in her stools. She complains she is tired and has a headache. Discussed with the who explained that her mental status began to worsen last year when she had a seizure and was hospitalized. He states he has not noted any bleeding and she has not had a menses this year. She does have a pituitary abnormality seen on imaging that she is aware of but according to the she has not been to see a neurosurgeon for follow up. She is a daily drinker, about 8 beers a day , but lately it has only been a few and her last drink was 3 days ago because she is not feeling well. No signs of withdraw at this time. Objective Vitals Vital Signs Date Time Temp Pulse Resp B/P Pulse Ox O2 Delivery O2 Flow Rate FiO2 12/22/16 08:00 97.4 90 18 147/83 100 12/22/16 03:29 97.1 86 100 12/22/16 03:06 96.8 78 17 100 12/21/16 23:45 96.8 92 16 117/71 100 12/21/16 23:31 97.1 86 17 121/76 100 12/21/16 22:00 97.3 88 20 136/88 100 12/21/16 22:00 Room Air 12/21/16 21:00 78 14 112/64 97 Room Air 12/21/16 19:00 72 14 117/69 98 Room Air 12/21/16 18:22 93 18 100 Room Air 12/21/16 18:13 98.3 90 18 116/76 100 I/O 12/21/16 12/21/16 12/21/16 12/22/16 12/22/16 12/22/16 07:00 15:00 23:00 07:00 15:00 23:00 Intake Total 936 ml Balance 936 ml Intake Oral 240 ml Packed Cells 696 ml # Voids 1 # Bowel Movements 0 Result Diagram: 12/22/16 0643 12/22/16 0643 Imaging Last Impressions Head CT 12/21/16 1830 Signed Impressions: Service Date/Time: Wednesday, December 21, 2016 18:59 - CONCLUSION: 1. No acute findings in the brain. Age-appropriate atrophy. 2. Stable appearance 2 hyperdense sella, unchanged from August 2015. 3. Opacification of the sphenoid sinus with possible air-fluid level, a new finding. Shlomo Ojeda MD Chest X-Ray 12/21/16 1817 Signed Impressions: Service Date/Time: Wednesday, December 21, 2016 18:33 - CONCLUSION: The lungs are clear. Shlomo Ojeda MD Ankle X-Ray 12/21/16 0000 Signed Impressions: Service Date/Time: Wednesday, December 21, 2016 18:46 - CONCLUSION: Negative exam. Shlomo Ojeda MD Objective Remarks GENERAL: Patient appear confused SKIN: No rashes, ecchymoses or lesions. Cool and dry. HEAD: Atraumatic. Normocephalic. No temporal or scalp tenderness. EYES: Pupils equal round and reactive. Extraocular motions intact. No scleral icterus. No injection or drainage. NECK: Trachea midline. No JVD or lymphadenopathy. CARDIOVASCULAR: Regular rate and rhythm without murmurs, gallops, or rubs. RESPIRATORY: Clear to auscultation. Breath sounds equal bilaterally. No wheezes , rales, or rhonchi. GASTROINTESTINAL: Abdomen soft, non-tender, nondistended. No hepato-splenomegaly , or palpable masses. No guarding. MUSCULOSKELETAL: Extremities without clubbing, cyanosis, or edema. Dressing/ cast over left foot. NEUROLOGICAL: Awake and Slow to respond. Motor and sensory grossly within normal limits. Normal speech. Medications and IVs Current Medications Medications (Trade) Dose Ordered Sig/Sylvia Route Start Time Stop Time Status Last Admin (NS Flush) 2 ml UNSCH PRN IV FLUSH 12/21/16 21:00 (NS Flush) 2 ml BID IV FLUSH 12/21/16 21:00 12/22/16 09:27 (Tylenol) 650 mg Q4H PRN PO 12/21/16 21:00 (Zofran Inj) 4 mg Q6H PRN IVP 12/21/16 21:00 (Tylenol) 650 mg Q6H PRN PO 12/21/16 21:00 (Narcan Inj) 0.4 mg UNSCH PRN IV 12/21/16 21:00 (Vasotec Inj) 1.25 mg Q6H PRN IV PUSH 12/21/16 21:00 (LaMICtal) 25 mg DAILY PO 12/22/16 09:00 12/22/16 09:26 (Trileptal) 600 mg BID PO 12/21/16 21:00 12/22/16 09:26 (Colyte Liq) 4,000 ml ONCE ONCE PO 12/22/16 16:00 12/22/16 16:01 Urinary Catheter: No Vascular Central Line Catheter: No A/P Problem List: (1) Symptomatic anemia ICD Code: D64.9 Status: Acute (2) Pituitary hemorrhage ICD Code: E23.6 Status: Acute (3) Closed left fibular fracture ICD Code: S82.402A Status: Acute (4) Hypokalemia ICD Code: E87.6 Status: Acute (5) Generalized weakness ICD Code: R53.1 Status: Acute (6) Seizure disorder ICD Code: G40.909 Status: Acute (7) Toxic metabolic encephalopathy ICD Code: G92 Status: Acute Assessment and Plan 51-year-old female with a history of pituitary tumor, seizures, and etoh abuse Symptomatic anemia: Etiology unclear. Given history of alcohol abuse. Need to rule out GI bleeding: -Hgb 5.4-->9.4 s/p 2 units prbcs -GI Consulted, Plan for EGD/Colon in AM -CBC in AM Acute Encephalopathy: Could be metabolic from alcohol abuse. However she does have a seizure disorder and a hyperdense sella on imaging. -Consult neurology for recommendations -Ammonia level pending Hypokalemia -Potassium 2.8, replacements ordered 60meq - Follow up in AM. History of Seizure disorder Resume outpatient medications including Lamictal and Trileptal, monitor levels Closed left fibular fracture: Nondisplaced distal fibula fracture. Initial injury about a month ago. Cast applied in the ED. Will need a ORTHO referral on discharge Generalized weakness: PT consult to treat and eval History of pituitary tumor -Consult neurology for recommendations CT head noted with finding of Opacification of the sphenoid sinus with possible air-fluid level, a new finding DVT prophylaxis: Scds Written by DENITA Tsang acting as scribe for [Jose] on 12/22/16 at 12 :50. This note was transcribed by scribe []. I, Dr. Farzana Garcia personally performed the history, physical exam, and medical decision making; and confirmed the accuracy of the information in the transcribed note. Authenticated by Dr. Farzana Garcia on 12/22/16 at 1250. Problem Qualifiers (1) Closed left fibular fracture: Qualified Code: S82.832A - Closed fracture of distal end of left fibula, unspecified fracture morphology, initial encounter Lilibeth Chen Dec 22, 2016 14:21 Farzana Garcia MD Dec 22, 2016 14:56
--- NOTE | 2016-12-22 14:25 | EKG ---
Date Performed: 12/21/2016 Time Performed: 19:17:26 PTAGE: 51 years EKG: ECTOPIC ATRIAL RHYTHM INCOMPLETE RIGHT BUNDLE BRANCH BLOCK NONSPECIFIC ST & T-WAVE ABNORMAL ITY ABNORMAL ECG NO PREVIOUS TRACING DOCTOR: Edgar Del Valle Interpretating Date/Time 12/22/2016 14:22:17
[2016-12-22] MEDS ORDERED: PEG (High)/E-LYTE SOLN 4000 ML BTL PO ONE (16:00)
[2016-12-23] VITALS: BP 128/93; PULSE 92; RESP 18; TEMP 96.4; O2SAT 100
[2016-12-23 04:00] VITALS: BP 107/76; PULSE 86; RESP 17; TEMP 97; O2SAT 100
[2016-12-23 06:28] LABS: AUTOMATED NEUTROPHIL # 4.6 TH/MM3 (1.8-7.7); BASOPHIL % 0.5 % (0.0-2.0); EOSINOPHIL % 0.1 % (0.0-4.0); HEMATOCRIT 22.4 % (35.0-46.0); HEMO FLAGS DIFF FINAL; LYMPHOCYTE # 2.3 TH/MM3 (1.0-4.8); MEAN CORPUSCULAR HGB CONC 35.5 % (32.0-36.0); MONO % 5.3 % (0.0-8.0); NEUT % 63.1 % (16.0-70.0); PLATELET COUNT 144 TH/MM3 (150-450); RED BLOOD COUNT 2.49 MIL/MM3 (4.00-5.30); RED CELL DISTRIBUTION WIDTH 21.6 % (11.6-17.2); WHITE BLOOD COUNT 7.3 TH/MM3 (4.0-11.0)
[2016-12-23 06:43] LABS: ALT (GPT) 17 U/L (10-53); ANION GAP 9 MEQ/L (5-15); AST (GOT) 32 U/L (15-37); BICARBONATE 25.1 MEQ/L (21.0-32.0); BLOOD UREA NITROGEN 8 MG/DL (7-18); CHLORIDE 105 MEQ/L (98-107); GLOMERULAR FILTRATION RATE 150 ML/MIN (>89); POTASSIUM 3.5 MEQ/L (3.5-5.1); SODIUM (NA) 139 MEQ/L (136-145)
[2016-12-23 06:45] LABS: ALKALINE PHOSPHATASE 126 U/L (45-117)
[2016-12-23 08:00] VITALS: BP 135/69; PULSE 90; RESP 16; TEMP 98.7; O2SAT 100
[2016-12-23] MEDS: OXcarbazepine 600 MG TAB PO SCH ×2 (09:47→20:32)
[2016-12-23] MEDS: lamoTRIgine 25 MG TAB PO SCH (09:47)
[2016-12-23] MEDS: SODIUM CHLORIDE 0.9% FLUSH 10 ML FLUSH IV FLUSH SCH ×2 (09:47→20:32)
[2016-12-23 11:45] VITALS: BP 135/69; PULSE 83; RESP 16; TEMP 98.7; O2SAT 98
--- NOTE | 2016-12-23 13:38 | PD.PROCEDR ---
GI Procedure REFERRING PHYSICIAN Rah PROCEDURE PERFORMED EGD with biopsy followed by colonoscopy with snare polypectomy and biopsy INDICATION FOR PROCEDURE Anemia weight loss and anorexia PROCEDURE: The procedure, risks and benefits were discussed with Ms. Bo and informed consent was obtained. Anesthesia sedated her with Diprivan. She was placed in the left lateral decubitus position. EGD: The Pentax videoscope was introduced through the oropharynx and advanced to the second portion of the duodenum under direct visualization. Retroflexion was performed in the stomach. FINDINGS: The esophagus this appeared to be unremarkable The stomach there was patchy erythema in the antrum of unclear significance this was biopsied otherwise the stomach was unremarkable with no ulcers or erosions no blood or bleeding The duodenum there was patchy erythema in the duodenal bulb and duodenal sweep the rest of the duodenum was unremarkable and biopsies were taken from the erythematous patches Colonoscopy: The Pentax videoscope was introduced through the rectum and advanced to cecum where the ileocecal valve and appendiceal orifice were identified. Retroflexion was performed in the rectum. Colonic prep was fair FINDINGS: Colonic withdrawal time greater than minutes as the scope was slowly withdrawn colonic mucosa was carefully inspected the patient was noted to have 2 polyps in the rectum one large and pedunculated the other sessile and small both were excised using hot snare technique and were retrieved for further evaluation the colonic mucosa appeared to be diffusely abnormal with patchy erythema and specifically in the descending and sigmoid portion it wasn't nodular patchy erythema mucosa this is all of unclear significance minor erosions were seen and these red patches in the ascending colon multiple biopsies were taken from the ascending transverse and sigmoid retroflexion was unremarkable so as rectal examination ESTIMATED BLOOD LOSS: None SPECIMENS REMOVED: Gastric duodenal and colonic samples COMPLICATIONS: None IMPRESSION: Antral erythema Duodenal erythema Colon polyps Colonic Patchy erythema PLAN: Await biopsy Supportive care Probably an infectious process led to this but we will have to wait for the biopsies for further recommendations Davin Lerma MD Dec 23, 2016 13:37
--- NOTE | 2016-12-23 15:13 | HHI.PR ---
Subjective Remarks Follow up for anemia and confusion. Patient still with confusion and slow to respond to questions. S/P panendoscopy. States she is ok. No specific complaints. Objective Vitals Vital Signs Date Time Temp Pulse Resp B/P Pulse Ox O2 Delivery O2 Flow Rate FiO2 12/23/16 13:43 98.4 84 18 144/80 100 12/23/16 13:24 98.2 78 16 144/88 100 12/23/16 11:45 98.7 83 16 135/69 98 12/23/16 09:45 Room Air 12/23/16 08:00 98.7 90 16 135/69 100 12/23/16 04:00 97.0 86 17 107/76 100 12/23/16 04:00 Room Air 12/23/16 00:00 Room Air 12/23/16 00:00 96.4 92 18 128/93 100 12/22/16 20:00 Room Air 12/22/16 20:00 95.8 96 18 158/100 100 12/22/16 17:15 95 12/22/16 16:00 97.4 91 20 142/88 100 I/O 12/22/16 12/22/16 12/22/16 12/23/16 12/23/16 12/23/16 07:00 15:00 23:00 07:00 15:00 23:00 Intake Total 936 ml 480 ml 954 ml 240 ml Output Total 900 ml Balance 936 ml -420 ml 954 ml 240 ml Intake Oral 240 ml 480 ml 600 ml 240 ml IV Total 354 ml Packed Cells 696 ml Output Urine Total 900 ml # Voids 1 3 1 1 # Bowel Movements 0 1 1 Result Diagram: 12/23/16 0607 12/23/16 0607 Objective Remarks GENERAL: Patient appear confused SKIN: No rashes, ecchymoses or lesions. Cool and dry. HEAD: Atraumatic. Normocephalic. No temporal or scalp tenderness. EYES: Pupils equal round and reactive. Extraocular motions intact. No scleral icterus. No injection or drainage. NECK: Trachea midline. No JVD or lymphadenopathy. CARDIOVASCULAR: Regular rate and rhythm without murmurs, gallops, or rubs. RESPIRATORY: Clear to auscultation. Breath sounds equal bilaterally. No wheezes , rales, or rhonchi. GASTROINTESTINAL: Abdomen soft, non-tender, nondistended. No hepato-splenomegaly , or palpable masses. No guarding. MUSCULOSKELETAL: Extremities without clubbing, cyanosis, or edema. Dressing/ cast over left foot. NEUROLOGICAL: Awake and Slow to respond. Motor and sensory grossly within normal limits. slow speech. 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 Given history of alcohol abuse. Need to rule out GI bleeding. Panendoscopy with no acute bleeding, concern for infectious process, biopsy taken -Hgb 5.4-->9.4 >>8s/p 2 units prbcs -GI following -CBC in AM Acute Encephalopathy: Could be metabolic from alcohol abuse. However she does have a seizure disorder and a hyperdense sella on imaging. reports that her mental status has been declining since last year when she started having seizures. She continued to drink alcohol up until this hospitalization. -Consult neurology for recommendations -Ammonia level normal Hypokalemia - Replaced - Follow up in AM. History of Seizure disorder Resume outpatient medications including Lamictal and Trileptal Unsure about compliance Closed left fibular fracture: Nondisplaced distal fibula fracture. Initial injury about a month ago. Cast applied in the ED. Will need a ORTHO referral on discharge Generalized weakness: PT consult to treat and eval History of pituitary tumor -Consult neurology for recommendations. Patient was supposed to follow up outpatient but states they were waiting for a call from the referral service. CT head noted with finding of Opacification of the sphenoid sinus with possible air-fluid level, a new finding DVT prophylaxis: Scds. Chemoprophylaxis contraindicated due to anemia. Problem Qualifiers (1) Closed left fibular fracture: Qualified Code: S82.832A - Closed fracture of distal end of left fibula, unspecified fracture morphology, initial encounter Farzana Garcia MD Dec 23, 2016 15:12
[2016-12-23] MEDS ORDERED: PROPOFOL 200 MG/20 ML AMP IV ONE (16:20)
[2016-12-23] MEDS: ENALAPRILAT 1.25 MG/ML VIAL IV PUSH PRN (20:51)
[2016-12-23 21:16] VITALS: BP 172/86; PULSE 99; RESP 20; TEMP 98; O2SAT 100
[2016-12-24] VITALS (8 sets, daily range): BP systolic 118–154; BP diastolic 74–88; PULSE 72–94; RESP 19–20; TEMP 95.9–97.3; O2SAT 95–100
[2016-12-24] MEDS: ACETAMINOPHEN 325 MG TAB PO PRN (02:39)
[2016-12-24] MEDS: lamoTRIgine 25 MG TAB PO SCH (09:40)
[2016-12-24] MEDS: OXcarbazepine 600 MG TAB PO SCH ×2 (09:40→22:09)
[2016-12-24] MEDS: SODIUM CHLORIDE 0.9% FLUSH 10 ML FLUSH IV FLUSH SCH ×2 (09:44→21:00)
[2016-12-24 10:03] LABS: HEMATOCRIT 23.9 % (35.0-46.0); MEAN CELL VOLUME 93.8 FL (80.0-100.0); MEAN CORPUSCULAR HEMOGLOBIN 31.2 PG (27.0-34.0); MEAN CORPUSCULAR HGB CONC 33.3 % (32.0-36.0); PLATELET COUNT 131 TH/MM3 (150-450); RED BLOOD COUNT 2.55 MIL/MM3 (4.00-5.30); RED CELL DISTRIBUTION WIDTH 21.2 % (11.6-17.2); REVIEW FLAG FINAL; WHITE BLOOD COUNT 6.2 TH/MM3 (4.0-11.0)
[2016-12-24 10:37] LABS: ALKALINE PHOSPHATASE 125 U/L (45-117); ALT (GPT) 21 U/L (10-53); ANION GAP 9 MEQ/L (5-15); AST (GOT) 31 U/L (15-37); BICARBONATE 25.3 MEQ/L (21.0-32.0); BLOOD UREA NITROGEN 9 MG/DL (7-18); CHLORIDE 99 MEQ/L (98-107); GLOMERULAR FILTRATION RATE 147 ML/MIN (>89); SODIUM (NA) 133 MEQ/L (136-145); TOTAL BILIRUBIN ADULT 0.9 MG/DL (0.2-1.0)
[2016-12-24 11:10] LABS: POTASSIUM 2.9 MEQ/L (3.5-5.1)
[2016-12-24] MEDS: POTASSIUM CHLORIDE 10 MEQ CONTROLLED RELEASE TAB PO SCH ×3 (12:10→20:00)
--- NOTE | 2016-12-24 13:09 | HHI.PR ---
Subjective Remarks Follow-up anemia and encephalopathy. Patient is confused. According to the she has history of intermittent confusion worse lately. Also had swelling RLE which has improved but noted discoloration and the ankle area discussed with RN Objective Vitals Vital Signs Date Time Temp Pulse Resp B/P Pulse Ox O2 Delivery O2 Flow Rate FiO2 12/24/16 10:33 79 12/24/16 08:00 96.4 72 20 153/88 100 12/24/16 06:32 96.1 86 20 120/74 99 12/24/16 03:37 19 12/24/16 01:00 Room Air 12/24/16 00:12 97.3 94 20 121/81 99 12/23/16 21:16 98.0 99 20 172/86 100 12/23/16 13:43 98.4 84 18 144/80 100 12/23/16 13:24 98.2 78 16 144/88 100 I/O 12/23/16 12/23/16 12/23/16 12/24/16 12/24/16 12/24/16 07:00 15:00 23:00 07:00 15:00 23:00 Intake Total 240 ml Balance 240 ml Intake Oral 240 ml # Voids 1 1 1 # Bowel Movements 1 0 0 Result Diagram: 12/24/16 0903 12/24/16 0903 Imaging Last Impressions Head CT 12/21/16 1830 Signed Impressions: Service Date/Time: Wednesday, December 21, 2016 18:59 - CONCLUSION: 1. No acute findings in the brain. Age-appropriate atrophy. 2. Stable appearance 2 hyperdense sella, unchanged from August 2015. 3. Opacification of the sphenoid sinus with possible air-fluid level, a new finding. Shlomo Ojeda MD Chest X-Ray 12/21/16 1817 Signed Impressions: Service Date/Time: Wednesday, December 21, 2016 18:33 - CONCLUSION: The lungs are clear. Shlomo Ojeda MD Ankle X-Ray 12/21/16 0000 Signed Impressions: Service Date/Time: Wednesday, December 21, 2016 18:46 - CONCLUSION: Negative exam. Shlomo Ojeda MD Objective Remarks GENERAL: Patient appear confused SKIN: No rashes, ecchymoses or lesions. Cool and dry. HEAD: Atraumatic. Normocephalic. No temporal or scalp tenderness. EYES: Pupils equal round and reactive. Extraocular motions intact. No scleral icterus. No injection or drainage. NECK: Trachea midline. No JVD or lymphadenopathy. CARDIOVASCULAR: Regular rate and rhythm without murmurs, gallops, or rubs. RESPIRATORY: Clear to auscultation. Breath sounds equal bilaterally. No wheezes , rales, or rhonchi. GASTROINTESTINAL: Abdomen soft, non-tender, nondistended. No guarding. MUSCULOSKELETAL: Extremities without clubbing, cyanosis but with mild right leg edema with dark discoloration in the ankle area does not feel warm or tender. Dressing/cast over left foot. NEUROLOGICAL: Awake and Slow to respond. Motor and sensory grossly within normal limits. slow speech. 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 Given history of alcohol abuse. Need to rule out GI bleeding. Panendoscopy with no acute bleeding, concern for infectious process, biopsy taken -Hgb 5.4-->9.4 >>8s/p 2 units prbcs -GI following Acute Encephalopathy: Could be metabolic from alcohol abuse. However she does have a seizure disorder and a hyperdense sella on imaging. reports that her mental status has been declining since last year when she started having seizures. She continued to drink alcohol up until this hospitalization. -Consult neurology for recommendations -Ammonia level normal. Check B-12, RPR and EEG. UA. Consult ST for cognition -per [facility] pharmacy last refill of hydrocortisone was 3 months ago for one month Hypokalemia - Replace, check magnesium - Follow up in AM. History of Seizure disorder Resume outpatient medications including Lamictal and Trileptal Unsure about compliance Closed left fibular fracture: Nondisplaced distal fibula fracture. Initial injury about a month ago. Cast applied in the ED. Will need a ORTHO referral on discharge Generalized weakness: PT consulted History of pituitary tumor -Consult neurology for recommendations. Patient was supposed to follow up outpatient but states they were waiting for a call from the referral service. CT head noted with finding of Opacification of the sphenoid sinus with possible air-fluid level, a new finding DVT prophylaxis: Scds. Chemoprophylaxis contraindicated due to anemia. Discharge Planning Not stable for discharge. PT recommends rehabilitation consult case management Problem Qualifiers (1) Closed left fibular fracture: Qualified Code: S82.832A - Closed fracture of distal end of left fibula, unspecified fracture morphology, initial encounter Jackson Martinez MD Dec 24, 2016 13:09
[2016-12-25 00:36] VITALS: BP 121/78; PULSE 84; RESP 22; TEMP 98.5; O2SAT 98
[2016-12-25 04:55] VITALS: BP_SYST 124; BP_DIAS 60; BP_DIAS 67; PULSE 96; RESP 20; RESP 22; TEMP 97.5; TEMP 98.5; O2SAT 98
[2016-12-25] MEDS: ACETAMINOPHEN 325 MG TAB PO PRN ×2 (04:58→23:04)
[2016-12-25 07:20] VITALS: BP 121/77; PULSE 85; RESP 18; TEMP 96.9; O2SAT 99
[2016-12-25] MEDS: OXcarbazepine 600 MG TAB PO SCH (07:24)
[2016-12-25] MEDS: lamoTRIgine 25 MG TAB PO SCH ×2 (07:24→21:00)
[2016-12-25] MEDS: SODIUM CHLORIDE 0.9% FLUSH 10 ML FLUSH IV FLUSH SCH ×2 (07:24→21:00)
[2016-12-25 07:50] LABS: BICARBONATE 22.8 MEQ/L (21.0-32.0); MAGNESIUM 1.8 MG/DL (1.5-2.5); POTASSIUM 3.7 MEQ/L (3.5-5.1)
[2016-12-25 10:04] LABS: RAPID PLASMA REAGIN SCREEN NON-REACTIVE (NON-REACTVE)
[2016-12-25 11:00] VITALS: BP 101/63; PULSE 89; RESP 18; TEMP 97.6; O2SAT 100
--- NOTE | 2016-12-25 12:44 | HHI.GIFU ---
Subjective Remarks Resting in bed. Denies nausea/vomiting, no abdominal pain. Not much of an appetite. Only ate 5% of breakfast, but will try to do better with lunch (Michelle Steven) Objective Vitals I&O Vital Signs Date Time Temp Pulse Resp B/P Pulse Ox O2 Delivery O2 Flow Rate FiO2 12/25/16 11:00 97.6 89 18 101/63 100 12/25/16 08:00 99 Room Air 12/25/16 07:20 96.9 85 18 121/77 99 12/25/16 05:57 17 12/25/16 04:55 98.5 96 20 124/60 98 12/25/16 02:09 Room Air 12/25/16 00:36 98.5 84 22 121/78 98 12/24/16 20:20 97.2 83 20 118/76 95 12/24/16 20:00 77 12/24/16 16:00 96.9 80 19 129/75 99 I/O 12/24/16 12/24/16 12/24/16 12/25/16 12/25/16 12/25/16 07:00 15:00 23:00 07:00 15:00 23:00 Intake Total 160 ml 240 ml Output Total 200 ml Balance 160 ml 40 ml Intake Oral 160 ml 240 ml Output Urine Total 200 ml # Voids 1 1 # Bowel Movements 0 0 0 Laboratory Laboratory Tests Test 12/25/16 06:40 Sodium Level 129 Potassium Level 3.7 Chloride Level 96 Carbon Dioxide Level 22.8 Anion Gap 10 Blood Urea Nitrogen 6 Creatinine 0.59 Estimat Glomerular Filtration 130 Rate Random Glucose 92 Calcium Level 8.2 Magnesium Level 1.8 Rapid Plasma Reagin NON-REACTIVE Imaging Last Impressions Head CT 12/21/16 183 Signed Impressions: Service Date/Time: Wednesday, December 21, 2016 18:59 - CONCLUSION: 1. No acute findings in the brain. Age-appropriate atrophy. 2. Stable appearance 2 hyperdense sella, unchanged from August 2015. 3. Opacification of the sphenoid sinus with possible air-fluid level, a new finding. Shlomo Ojeda MD Chest X-Ray 12/21/161816 Signed Impressions: Service Date/Time: Wednesday, December 21, 2016 18:33 - CONCLUSION: The lungs are clear. Shlomo Ojeda MD Ankle X-Ray 12/21/16 0000 Signed Impressions: Service Date/Time: Wednesday, December 21, 2016 18:46 - CONCLUSION: Negative exam. Shlomo Ojeda MD Physical Exam HEENT: Normocephalic; atraumatic; no jaundice. CHEST: CTA CARDIAC: RRR ABDOMEN: Soft, nondistended, nontender; no hepatosplenomegaly; bowel sounds are present in all four quadrants. EXTREMITIES: No clubbing, cyanosis, or edema. SKIN: Normal; no rash; no jaundice. HADOOP DEVELOPER: No focal deficits; alert and oriented times three. (Michelle Steven) Assessment and Plan Plan ASSESSMENT: - Severe anemia. H/H of 5.4/15.5 on admission. Iron 166, BRPP138, Iron Saturation 98%- Of note, these were obtained AFTER 2 units of PRBC. (+) Anorexia, (+) Weight loss. No other GI symptoms. No hx of PUD. No NSAIDs. S/P EGD/Colonoscopy (12/25/16)----> Antral erythema, Duodenal erythema, Colon polyps, Colonic Patchy erythema. Pathology duodenal mucosa with changes suggestive of peptic duodenitis, villous architecture is normal, antral mucosa with marked active chronic gastritis, a harris stain is positive for numerous helicobacter like organisms, ascending colon with one fragment of colonic mucosa with no significant histopathologic abnormalities and one fragment of colonic mucosa with red blood cell extravasation in the lamina propria, transverse colon biopsy with colonic mucosa with no significant histopathologic abnormalities, descending colon with benign lymphoid aggregates, sigmoid colon with melanosis coli, rectal polyp with tubulovillous adenoma. S/P 2 units PRBC. 8.0/23.9. - H. Pylori Gastritis. No known allergies. Listed possible interaction between Clarithromycin/Trileptal. Will Give Protonix 40mg po BID, Amoxicillin 1gram po BID, - Tubulovillous rectal polyp. - Anorexia, Abnormal weight loss. According to EMR, this has been over several months. - Elevated LFTs. Improved. - Generalized weakness, likely secondary to above. - Hypokalemia. Improved - Closed left fibular fracture. Per ortho. PLAN: - EBER - H Pylori Tx - Monitor labs - Transfuse as necessary - Supportive care - Pt seen and examined by Dr. Lerma and myself and this note is written on his behalf (Michelle Steven) Physician Comments Seen and examined Agree with above Continue with current supportive care Monitor labs (Davin Lerma MD) Michelle Steven Dec 25, 2016 12:44 Davin Lerma MD Dec 25, 2016 22:55
--- NOTE | 2016-12-25 13:23 | MG ---
cc: NICOLE SHERWOOD M.D. Lab No: [id number] Date: 12/25/2016 Age: ___ Sex: F Race: __ TECHNIQUE 17 channel EEG. DESCRIPTION The background rhythm reveals a symmetrical alpha rhythm, frequency 8-9 Hz, amplitude is about 20-30 microvolts during drowsiness, there is mild slowing in the theta range at about 6 Hz. There is occasional muscle artifact. There are no epileptiform features. There are no lateralizing features present. The patient does fall asleep and normal sleep activity seen in terms of sleep spindles and delta activity. Hyperventilation was not done. Photic stimulation results in a fairly well-developed symmetrical driving response. INTERPRETATION Normal EEG MD RADHA Santana/TAMEKA /1:11 PM /1:19 PM
[2016-12-25 13:48] LABS: BACTERIA, URINE MANY /hpf; BLOOD, URINE NEG (NEG); COMMENT (UR) CULTURE INDICATED; CULTURE IF INDICATED CULTURE INDICATED; GLUCOSE,URINE NEG (NEG); KETONE, URINE NEG (NEG); MUCUS URINE FEW /lpf (OCC); NITRITE,URINE NEG (NEG); PH, URINE 5.5 (5.0-8.5); SQUAMOUS EPITHELIAL CELL URINE 2 /hpf (0-5); URINE COLOR YELLOW (YELLW/STRAW)
[2016-12-25] MEDS: FAMOTIDINE 20 MG TAB PO SCH ×2 (14:54→21:28)
[2016-12-25 15:00] VITALS: BP 126/76; PULSE 85; RESP 18; TEMP 98.2; O2SAT 100
--- NOTE | 2016-12-25 15:36 | HHI.PR ---
Subjective Remarks Follow-up encephalopathy. She is less confused today per . She is oriented to person and place but not to date. Discussed with RN and case management, no payor source for SNF. Restrepo jaylene Objective Vitals Vital Signs Date Time Temp Pulse Resp B/P Pulse Ox O2 Delivery O2 Flow Rate FiO2 12/25/16 11:00 97.6 89 18 101/63 100 12/25/16 08:00 99 Room Air 12/25/16 07:20 96.9 85 18 121/77 99 12/25/16 05:57 17 12/25/16 04:55 98.5 96 20 124/60 98 12/25/16 02:09 Room Air 12/25/16 00:36 98.5 84 22 121/78 98 12/24/16 20:20 97.2 83 20 118/76 95 12/24/16 20:00 77 12/24/16 16:00 96.9 80 19 129/75 99 I/O 12/24/16 12/24/16 12/24/16 12/25/16 12/25/16 12/25/16 07:00 15:00 23:00 07:00 15:00 23:00 Intake Total 160 ml 240 ml 480 ml Output Total 200 ml Balance 160 ml 40 ml 480 ml Intake Oral 160 ml 240 ml 480 ml Output Urine Total 200 ml # Voids 1 1 5 # Bowel Movements 0 0 0 0 Result Diagram: 12/24/16 0903 12/25/16 0640 Imaging Last Impressions Head CT 12/21/16 1830 Signed Impressions: Service Date/Time: Wednesday, December 21, 2016 18:59 - CONCLUSION: 1. No acute findings in the brain. Age-appropriate atrophy. 2. Stable appearance 2 hyperdense sella, unchanged from August 2015. 3. Opacification of the sphenoid sinus with possible air-fluid level, a new finding. Shlomo Ojeda MD Chest X-Ray 12/21/16 1817 Signed Impressions: Service Date/Time: Wednesday, December 21, 2016 18:33 - CONCLUSION: The lungs are clear. Shlomo Ojeda MD Ankle X-Ray 12/21/16 0000 Signed Impressions: Service Date/Time: Wednesday, December 21, 2016 18:46 - CONCLUSION: Negative exam. Shlomo Ojeda MD Objective Remarks GENERAL: Patient with improving confusion SKIN: No rashes, ecchymoses or lesions. Cool and dry. HEAD: Atraumatic. Normocephalic. No temporal or scalp tenderness. EYES: Pupils equal round and reactive. Extraocular motions intact. No scleral icterus. No injection or drainage. NECK: Trachea midline. No JVD or lymphadenopathy. CARDIOVASCULAR: Regular rate and rhythm without murmurs, gallops, or rubs. RESPIRATORY: Clear to auscultation. Breath sounds equal bilaterally. No wheezes , rales, or rhonchi. GASTROINTESTINAL: Abdomen soft, non-tender, nondistended. No guarding. MUSCULOSKELETAL: Extremities without clubbing, cyanosis but with mild right leg edema with dark discoloration in the ankle area does not feel warm or tender. Dressing/cast over left foot. NEUROLOGICAL: Awake and Slow to respond. Motor and sensory grossly within normal limits. slow speech. 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 Given history of alcohol abuse. Need to rule out GI bleeding. Panendoscopy with no acute bleeding, concern for infectious process, biopsy taken -Hgb 5.4-->9.4 >>8s/p 2 units prbcs -GI following patient with duodenitis and gastritis positive for H. pylori. Treatment started Acute Encephalopathy: Could be metabolic from alcohol abuse. However she does have a seizure disorder and a hyperdense sella on imaging. reports that her mental status has been declining since last year when she started having seizures. She continued to drink alcohol up until this hospitalization. -Consult neurology for recommendations -Ammonia level normal. Check B-12, RPR and EEG all unremarkable. UA pending. Consult ST for cognition -per [facility] pharmacy last refill of hydrocortisone was 3 months ago for one month Hypokalemia -Replaced History of Seizure disorder Resume outpatient medications including Lamictal and Trileptal Unsure about compliance Closed left fibular fracture: Nondisplaced distal fibula fracture. Initial injury about a month ago. Cast applied in the ED. Will need a ORTHO referral on discharge Generalized weakness: PT consulted History of pituitary tumor -Consult neurology for recommendations. Patient was supposed to follow up outpatient but states they were waiting for a call from the referral service. CT head noted with finding of Opacification of the sphenoid sinus with possible air-fluid level, a new finding DVT prophylaxis: Scds. Chemoprophylaxis contraindicated due to anemia. Discharge Planning No payor source for [facility]. [facility] following Problem Qualifiers (1) Closed left fibular fracture: Qualified Code: S82.832A - Closed fracture of distal end of left fibula, unspecified fracture morphology, initial encounter Jackson Martinez MD Dec 25, 2016 15:35
[2016-12-25] MEDS: BISMUTH SUBSALICYLATE 240 ML BTL PO SCH ×2 (17:32→21:00)
[2016-12-25] MEDS: metroNIDAZOLE 250 MG TAB PO SCH ×2 (17:41→21:29)
[2016-12-25] MEDS: TETRACYCLINE HCL 250 MG CAP PO SCH ×2 (17:41→21:28)
[2016-12-25 20:34] VITALS: BP 124/78; PULSE 88; RESP 18; TEMP 98.6; O2SAT 98
[2016-12-25] MEDS: levETIRAcetam 500 MG TAB PO SCH (21:28)
--- NOTE | 2016-12-25 22:03 | MB ---
cc: UNIQUE MICHELLE MD DATE OF CONSULTATION 12/25/16 1965 REASON FOR CONSULTATION Weakness, encephalopathy. HISTORY OF PRESENT ILLNESS This is a 51-year-old woman. History is taken from the history and physical. Apparently, she has a history going back a year ago in 2016 in August of a pituitary hemorrhage. She was seen by neurosurgery. She has a history of epilepsy per her many years, brought in because of weakness, decreased appetite for the last few months, weight loss. She was found to have a low hemoglobin, currently it is eight. Recently had a closed left fibular fracture. She has a wrap on it, cannot tell me otherwise what is going on. She states that she came in because she fell like something was going to get her. PAST MEDICAL HISTORY 1. Anxiety, 2. Headache, 3. Hypertension, 4. Seizures, 5. Pituitary hemorrhage in the past MEDICATIONS Home medicines 1. Lamictal 25 mg a day, 2. Hydrocortisone 5 mg b.i.d., 3. Trileptal 600 mg twice a day. ALLERGIES None reported. FAMILY HISTORY Diabetes. SOCIAL HISTORY Per chart, daily alcohol, amount unknown. Tobacco use a pack lasting her three days, substance abuse marijuana. PHYSICAL EXAMINATION VITAL SIGNS: Temperature is 98.2, pulse 85, respiratory rate 18, blood pressure 126/76. NECK: Supple. I do not hear any bruits HEART: Regular. She is awake and alert. NEUROLOGIC: She can tell me her date of , but she states her age is 61. She does not know the year. She says it is 20 and then she stops. She does not know the month or the day of the week. She knows she is in [place], but she thought she was in [place]. Her speech is hypophonic but not dysarthric. Her pupils reactive. Face symmetrical. Tongue is midline. Motor thomas - she is thin but she seems to move everything equally. I do not appreciate any drift or leg lag. Does not follow well with the legs. Toes withdraws. DTRs are trace to 1+. Sensory otherwise seems to be normal. LABORATORY DATA Admitting hemoglobin was 5.4, currently eight, white count has been normal. Her platelets are 131,000 today. Coag panel is normal. Her chemistries - currently her sodium is 129, calcium 8.2. Looking back, she came in with a sodium of 137, potassium 2.7. B12 is 1536, albumin 1.9. Lipase is 56, ammonia level 24. Magnesium 1.8. Urine few bacteria. Culture is done. Dilantin level 0.4. Tegretol level less some 0.5. Serology RPR nonreactive. Microbiology urine cultures pending. Duodenal stomach and colon biopsy diagnosis shows from the duodenal bulb suggestive of peptic duodenitis. Gastric antrum biopsy shows active chronic gastritis. Helicobacter like organisms. Rectal polyp was a tubovillous adenoma. Sigmoid biopsy colonic mucosa with melanosis coli. IMAGING STUDIES CT head - no acute findings, age appropriate atrophy, stable appearance of the hyperdense sella unchanged from August 2015. Opacification of the sphenoid sinuses with air fluid levels that are new. She did have an MRI back in August that showed possible pituitary hemorrhage. She was seen by neurosurgery at that time. Ankle shows nondisplaced fracture of the distal fibula on the left. EEG was performed normal study. No seizures. IMPRESSION Change in mental status. It is very difficult to tell why. I am not sure of her baseline. She may start having a dementia process maybe from electrolyte abnormalities, metabolic derangement. May be due to chronic alcohol use, some withdrawal. I an not sure at this point. I do not think the findings and the CT are new. It seems that they are old. She may have a sinus issue that needs to be addressed. She is severely anemic on admission. Findings are discussed in the biopsy report. Continue per GI. She is right now on Protonix, amoxicillin. Her weight loss has been over several months. She will need encouragement to eat, if not try her on some possible Remeron at nighttime versus putting her on another sort of medication to increase her appetite. I believe her generalized weakness is from malnutrition. As far as her history of seizures, it is difficult to say how many she has actually had. She has not had one as far as I know while she has been in the hospital. Her sodium is a bit low. Certainly, the Trileptal can contribute to that. We can certainly change her to other medicines. She does not have any other drug allergies. Can certainly change her to instead of Trileptal change her over to Keppra 500 mg twice a day and then the lamotrigine can be increased at 25-50 mg b.i.d. Continue to monitor. She will need physical therapy, possible rehab. MD ELIZABETH Verduzco/ /5:41 PM /9:43 PM
[2016-12-26] VITALS (13 sets, daily range): BP systolic 105–142; BP diastolic 52–85; PULSE 70–98; RESP 16–20; TEMP 97.1–98.8; O2SAT 94–100
[2016-12-26] MEDS: TETRACYCLINE HCL 250 MG CAP PO SCH ×4 (08:56→20:42)
[2016-12-26] MEDS: BISMUTH SUBSALICYLATE 240 ML BTL PO SCH ×4 (08:57→20:43)
[2016-12-26] MEDS: metroNIDAZOLE 250 MG TAB PO SCH ×4 (08:58→20:41)
[2016-12-26] MEDS: lamoTRIgine 25 MG TAB PO SCH ×2 (08:58→20:41)
[2016-12-26] MEDS: FAMOTIDINE 20 MG TAB PO SCH ×2 (08:59→20:42)
[2016-12-26] MEDS: levETIRAcetam 500 MG TAB PO SCH ×2 (08:59→20:41)
[2016-12-26] MEDS: SODIUM CHLORIDE 0.9% FLUSH 10 ML FLUSH IV FLUSH SCH ×3 (09:00→21:00)
[2016-12-26 09:14] LABS: AUTOMATED NEUTROPHIL # 3.5 TH/MM3 (1.8-7.7); BASOPHIL % 0.5 % (0.0-2.0); EOSINOPHIL % 0.1 % (0.0-4.0); HEMATOCRIT 21.7 % (35.0-46.0); LYMPH % 32.9 % (9.0-44.0); LYMPHOCYTE # 1.9 TH/MM3 (1.0-4.8); MEAN CELL VOLUME 93.7 FL (80.0-100.0); MEAN CORPUSCULAR HEMOGLOBIN 31.1 PG (27.0-34.0); MEAN CORPUSCULAR HGB CONC 33.1 % (32.0-36.0); MONO % 7.5 % (0.0-8.0); PLATELET COUNT 99 TH/MM3 (150-450); RED BLOOD COUNT 2.32 MIL/MM3 (4.00-5.30); RED CELL DISTRIBUTION WIDTH 20.5 % (11.6-17.2); WHITE BLOOD COUNT 5.9 TH/MM3 (4.0-11.0)
[2016-12-26 09:17] LABS: HEMO FLAGS AUTO DIFF
[2016-12-26 09:42] LABS: BICARBONATE 27.5 MEQ/L (21.0-32.0); POTASSIUM 3.5 MEQ/L (3.5-5.1)
[2016-12-26 09:56] LABS: PLATELET ESTIMATE SMEAR LOW (NORMAL); PLATELET MORPHOLOGY NORMAL (NORMAL); SCAN/DIFF AUTO DIFF CONFIRMED
[2016-12-26] MEDS: ACETAMINOPHEN 325 MG TAB PO PRN ×3 (10:32→20:47)
[2016-12-26] MEDS ORDERED: POTASSIUM CHLORIDE 20 MEQ CONTROLLED RELEASE TAB PO ONE (12:00)
[2016-12-26] MEDS ORDERED: SODIUM CHLOR 0.9% 250 ML INJ 250 ML IV ONE (12:00)
--- NOTE | 2016-12-26 12:31 | HHI.PR ---
Subjective Remarks Follow-up anemia. Hemoglobin down to 7.2 no gross bleeding. Agrees with blood transfusion. Will order hemolysis workup. Discussed with physical therapy, needs clarification regarding weightbearing status with left distal fibular fracture will consult orthopedic surgery for recommendations. Patient denies UTI and sinusitis symptoms Objective Vitals Vital Signs Date Time Temp Pulse Resp B/P Pulse Ox O2 Delivery O2 Flow Rate FiO2 12/26/16 11:30 97.7 90 19 134/72 100 12/26/16 11:12 95 12/26/16 07:15 97.6 98 19 137/68 100 12/26/16 06:30 98.0 80 19 110/56 95 12/26/16 00:30 97.1 70 20 105/52 94 12/26/16 00:03 18 12/25/16 22:00 Room Air 12/25/16 20:34 98.6 88 18 124/78 98 12/25/16 15:00 98.2 85 18 126/76 100 I/O 12/25/16 12/25/16 12/25/16 12/26/16 12/26/16 12/26/16 07:00 15:00 23:00 07:00 15:00 23:00 Intake Total 480 ml 240 ml 100 ml Balance 480 ml 240 ml 100 ml Intake Oral 480 ml 240 ml 100 ml # Voids 5 2 2 # Bowel Movements 0 0 0 Result Diagram: 12/26/16 0853 12/26/16 0853 Imaging Last Impressions Head CT 12/21/16 1830 Signed Impressions: Service Date/Time: Wednesday, December 21, 2016 18:59 - CONCLUSION: 1. No acute findings in the brain. Age-appropriate atrophy. 2. Stable appearance 2 hyperdense sella, unchanged from August 2015. 3. Opacification of the sphenoid sinus with possible air-fluid level, a new finding. Shlomo Ojeda MD Chest X-Ray 12/21/16 1817 Signed Impressions: Service Date/Time: Wednesday, December 21, 2016 18:33 - CONCLUSION: The lungs are clear. Shlomo Ojeda MD Ankle X-Ray 12/21/16 0000 Signed Impressions: Service Date/Time: Wednesday, December 21, 2016 18:46 - CONCLUSION: Negative exam. Shlomo Ojeda MD Objective Remarks GENERAL: Patient with improving confusion SKIN: No rashes, ecchymoses or lesions. Cool and dry. HEAD: Atraumatic. Normocephalic. No temporal or scalp tenderness. EYES: Pupils equal round and reactive. Extraocular motions intact. No scleral icterus. No injection or drainage. NECK: Trachea midline. No JVD or lymphadenopathy. CARDIOVASCULAR: Regular rate and rhythm without murmurs, gallops, or rubs. RESPIRATORY: Clear to auscultation. Breath sounds equal bilaterally. No wheezes , rales, or rhonchi. GASTROINTESTINAL: Abdomen soft, non-tender, nondistended. No guarding. MUSCULOSKELETAL: Extremities without clubbing, cyanosis but with mild right leg edema with dark discoloration in the ankle area does not feel warm or tender. Dressing/cast over left foot. NEUROLOGICAL: Awake and Slow to respond. Motor and sensory grossly within normal limits. slow speech. 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 Given history of alcohol abuse. Need to rule out GI bleeding. Panendoscopy with no acute bleeding, concern for infectious process, biopsy taken -Hgb 5.4-->9.4 >>8s/p 2 units prbcs. Hemoglobin 7.2 today. Hemolysis workup. 2 more units of packed RBC ordered. Repeat CBC in the morning -GI following patient with duodenitis and gastritis positive for H. pylori. Treatment started Acute Encephalopathy: Multifactorial. Could be metabolic from alcohol abuse. However she does have a seizure disorder and a hyperdense sella on imaging. reports that her mental status has been declining since last year when she started having seizures. She continued to drink alcohol up until this hospitalization. -Consult neurology for recommendations discontinued Trileptal and started Keppra and Lamictal -Ammonia level normal. Check B-12, RPR and EEG all unremarkable. UA with many bacteria urine culture pending. Consulted ST for cognition -per [facility] last refill of hydrocortisone was 3 months ago for one month Hypokalemia -Replaced History of Seizure disorder Resume outpatient medications including Lamictal and Trileptal Unsure about compliance Closed left fibular fracture: Nondisplaced distal fibula fracture. Initial injury about a month ago. Cast applied in the ED. Ortho consult regarding weightbearing status Generalized weakness: PT consulted History of pituitary tumor -Consult neurology for recommendations. Patient was supposed to follow up outpatient but states they were waiting for a call from the referral service. CT head noted with finding of Opacification of the sphenoid sinus with possible air-fluid level, a new finding. Denies sinus tenderness DVT prophylaxis: Scds. Chemoprophylaxis contraindicated due to anemia. Discharge Planning No payor source for SNF. [facility] following Problem Qualifiers (1) Closed left fibular fracture: Qualified Code: S82.832A - Closed fracture of distal end of left fibula, unspecified fracture morphology, initial encounter Jackson Martinez MD Dec 26, 2016 12:31
[2016-12-26 12:42] LABS: INDIRECT BILIRUBIN 0.7 MG/DL (0.0-0.8); TOTAL BILIRUBIN ADULT 1.1 MG/DL (0.2-1.0)
[2016-12-27] VITALS (8 sets, daily range): BP systolic 111–164; BP diastolic 66–96; PULSE 73–90; RESP 17–22; TEMP 96.1–98.3; O2SAT 93–100
[2016-12-27] MEDS: ENALAPRILAT 1.25 MG/ML VIAL IV PUSH PRN (00:26)
[2016-12-27] MEDS ORDERED: ACETAMINOPHEN/HYDROcodone 325 MG/5 MG TAB PO ONE (00:45)
[2016-12-27 08:47] LABS: AUTOMATED NEUTROPHIL # 2.8 TH/MM3 (1.8-7.7); BASOPHIL % 0.8 % (0.0-2.0); EOSINOPHIL % 0.4 % (0.0-4.0); HEMATOCRIT 28.8 % (35.0-46.0); HEMO FLAGS DIFF FINAL; LYMPH % 37.1 % (9.0-44.0); LYMPHOCYTE # 1.9 TH/MM3 (1.0-4.8); MEAN CELL VOLUME 89.2 FL (80.0-100.0); MEAN CORPUSCULAR HEMOGLOBIN 31.2 PG (27.0-34.0); MONO % 7.5 % (0.0-8.0); NEUT % 54.2 % (16.0-70.0); PLATELET COUNT 109 TH/MM3 (150-450); RED BLOOD COUNT 3.23 MIL/MM3 (4.00-5.30); RED CELL DISTRIBUTION WIDTH 18.2 % (11.6-17.2); WHITE BLOOD COUNT 5.2 TH/MM3 (4.0-11.0)
[2016-12-27 08:56] LABS: BICARBONATE 23.3 MEQ/L (21.0-32.0); MAGNESIUM 1.9 MG/DL (1.5-2.5); POTASSIUM 3.2 MEQ/L (3.5-5.1)
[2016-12-27] MEDS: FAMOTIDINE 20 MG TAB PO SCH ×2 (09:25→21:52)
[2016-12-27] MEDS: lamoTRIgine 25 MG TAB PO SCH ×2 (09:25→21:52)
[2016-12-27] MEDS: metroNIDAZOLE 250 MG TAB PO SCH ×4 (09:25→21:52)
[2016-12-27] MEDS: levETIRAcetam 500 MG TAB PO SCH ×2 (09:25→21:52)
[2016-12-27] MEDS: TETRACYCLINE HCL 250 MG CAP PO SCH ×4 (09:25→21:52)
[2016-12-27] MEDS: BISMUTH SUBSALICYLATE 240 ML BTL PO SCH ×4 (09:26→21:56)
--- NOTE | 2016-12-27 14:04 | RADRPT ---
EXAM DATE/TIME: 12/27/2016 13:24 [facility] COMPARISON: No previous studies available for comparison. INDICATIONS : Right leg swelling and pain. MEDICAL HISTORY : Hypertension. Seizures. Dyspnea. SURGICAL HISTORY : None. ENCOUNTER: Initial ACUITY: 1 day PAIN SCORE: 5/10 LOCATION: Right leg. TECHNIQUE: Venous ultrasound of the leg was performed from the inguinal ligament to the proximal calf. Real-mic e, color Doppler and spectral tracing, compression and augmentation techniques were used. FINDINGS: There is normal compressibility of the deep venous system from the inguinal region to the proximal ca lf. No echogenic clot is seen in the lumen of the common femoral, femoral, popliteal, and posterior tibial veins. There is a normal response of the venous system to proximal and distal augmentation an d respiration. CONCLUSION: Normal examination. Evangelista Martinez MD on December 27, 2016 at 14:02 Board Certified Radiologist. This report was verified electronically.
--- NOTE | 2016-12-27 14:12 | HHI.GIFU ---
Subjective Remarks 51 yo female resting in bed in no apparent distress. Reports she continues to have nausea and epigastric abdominal pain. Has decreased appetite. (Laura Cole) Objective Vitals I&O Vital Signs Date Time Temp Pulse Resp B/P Pulse Ox O2 Delivery O2 Flow Rate FiO2 12/27/16 12:07 97.0 73 17 138/83 100 12/27/16 08:21 96.4 81 18 124/85 100 12/27/16 08:00 75 12/27/16 04:00 96.4 75 18 116/75 100 12/27/16 00:00 98.3 85 18 164/96 98 12/26/16 20:00 98.8 85 18 142/84 100 12/26/16 19:00 89 12/26/16 17:10 98.2 86 17 129/82 100 12/26/16 16:55 98.2 86 16 129/82 100 12/26/16 16:00 98.1 85 16 126/83 100 12/26/16 15:20 98.4 86 19 133/80 97 12/26/16 14:13 98.1 91 17 130/85 100 I/O 12/26/16 12/26/16 12/26/16 12/27/16 12/27/16 12/27/16 07:00 15:00 23:00 07:00 15:00 23:00 Intake Total 100 ml 120 ml 120 ml Balance 100 ml 120 ml 120 ml Intake Oral 100 ml 120 ml 120 ml # Voids 2 2 2 # Bowel Movements 0 0 0 Laboratory Laboratory Tests Test 12/27/16 08:24 White Blood Count 5.2 Red Blood Count 3.23 Hemoglobin 10.1 Hematocrit 28.8 Mean Corpuscular Volume 89.2 Mean Corpuscular Hemoglobin 31.2 Mean Corpuscular Hemoglobin 35.0 Concent Red Cell Distribution Width 18.2 Platelet Count 109 Mean Platelet Volume 8.8 Neutrophils (%) (Auto) 54.2 Lymphocytes (%) (Auto) 37.1 Monocytes (%) (Auto) 7.5 Eosinophils (%) (Auto) 0.4 Basophils (%) (Auto) 0.8 Neutrophils # (Auto) 2.8 Lymphocytes # (Auto) 1.9 Monocytes # (Auto) 0.4 Eosinophils # (Auto) 0.0 Basophils # (Auto) 0.0 CBC Comment DIFF FINAL Differential Comment Sodium Level 138 Potassium Level 3.2 Chloride Level 105 Carbon Dioxide Level 23.3 Anion Gap 10 Blood Urea Nitrogen 5 Creatinine 0.41 Estimat Glomerular Filtration 197 Rate Random Glucose 85 Calcium Level 8.2 Magnesium Level 1.9 Date/Time Procedure Status Source Growth 12/25/16 13:30 Urine Culture - Final Complete Urine Clean Catch 50-100,000 CFU/ML MIXED KEY... Imaging Last Impressions Head CT 12/21/16 1830 Signed Impressions: Service Date/Time: Wednesday, December 21, 2016 18:59 - CONCLUSION: 1. No acute findings in the brain. Age-appropriate atrophy. 2. Stable appearance 2 hyperdense sella, unchanged from August 2015. 3. Opacification of the sphenoid sinus with possible air-fluid level, a new finding. Shlomo Ojeda MD Chest X-Ray 12/21/16 1817 Signed Impressions: Service Date/Time: Wednesday, December 21, 2016 18:33 - CONCLUSION: The lungs are clear. Shlomo Ojeda MD Ankle X-Ray 12/21/16 0000 Signed Impressions: Service Date/Time: Wednesday, December 21, 2016 18:46 - CONCLUSION: Negative exam. Shlomo Ojeda MD Physical Exam HEENT: PERRLA. Normocephalic; atraumatic; no jaundice. CHEST: CTA CARDIAC: RRR ABDOMEN: Soft, nondistended, nontender; no hepatosplenomegaly; bowel sounds x 4 quadrants. EXTREMITIES: No clubbing, cyanosis, or edema. SKIN: Normal; no rash; no jaundice. REPEAT CHIEF: No focal deficits; A & O x 3. (Laura Cole) Assessment and Plan Plan ASSESSMENT: - Severe anemia. H/H of 5.4/15.5 on admission. Iron 166, EIFV520, Iron Saturation 98%- Of note, these were obtained AFTER 2 units of PRBC. (+) Anorexia, (+) Weight loss. No other GI symptoms. No hx of PUD. No NSAIDs. S/P EGD/Colonoscopy (12/25/16)----> Antral erythema, Duodenal erythema, Colon polyps, Colonic Patchy erythema. Pathology duodenal mucosa with changes suggestive of peptic duodenitis, villous architecture is normal, antral mucosa with marked active chronic gastritis, a harris stain is positive for numerous helicobacter like organisms, ascending colon with one fragment of colonic mucosa with no significant histopathologic abnormalities and one fragment of colonic mucosa with red blood cell extravasation in the lamina propria, transverse colon biopsy with colonic mucosa with no significant histopathologic abnormalities, descending colon with benign lymphoid aggregates, sigmoid colon with melanosis coli, rectal polyp with tubulovillous adenoma. Hemoglobin/ Hematocrit stable today, 10.1/28.8 - H. Pylori Gastritis. No known allergies. Listed possible interaction between Clarithromycin/Trileptal. Start Protonix 40mg po BID, Amoxicillin 1gram po BID, - Tubulovillous rectal polyp. - Anorexia, Abnormal weight loss. According to EMR, this has been over several months. - Elevated LFTs. Improved. - Generalized weakness, likely secondary to above. - Hypokalemia. Improved - Closed left fibular fracture. Per ortho. PLAN: - EBER - H Pylori Tx - Monitor labs - Transfuse as necessary - Supportive care Patient seen and examined by Dr. Lerma and myself and this note is written on his behalf (Laura Cole) Physician Comments Patient seen and examined Continue with current supportive care Monitor labs Agree with current treatment regimen for H. pylori. We will sign off (Davin Lerma MD) Laura Cole Dec 27, 2016 14:12 Davin Lerma MD Dec 27, 2016 17:51
[2016-12-27] MEDS: HEPARIN SODIUM - SQ 10,000 UNITS/ML VIAL SQ SCH ×2 (14:37→21:53)
[2016-12-27] MEDS: ACETAMINOPHEN/HYDROcodone 325 MG/5 MG TAB PO PRN ×2 (14:42→21:52)
--- NOTE | 2016-12-27 14:43 | HHI.PR ---
Subjective Remarks Patient laying in bed with family and nurse at the bedside She seems to be responsive and answering question however she use inappropriate words sometimes"I will be to up...etc" Patient complained of severe pain and tenderness to touch with swelling and discoloration on her right lower extremity had discussed with the nurse, patient hasn't been on chemical DVT prophylaxis due to her GI bleed, will check ultrasound of the lower extremity rule out DVT if that's negative will do CT of the lower extremity, patient already had 3 views x-ray which was negative for fracture 2 days ago Objective Vitals Vital Signs Date Time Temp Pulse Resp B/P Pulse Ox O2 Delivery O2 Flow Rate FiO2 12/27/16 12:07 97.0 73 17 138/83 100 12/27/16 08:21 96.4 81 18 124/85 100 12/27/16 08:00 75 12/27/16 04:00 96.4 75 18 116/75 100 12/27/16 00:00 98.3 85 18 164/96 98 12/26/16 20:00 98.8 85 18 142/84 100 12/26/16 19:00 89 12/26/16 17:10 98.2 86 17 129/82 100 12/26/16 16:55 98.2 86 16 129/82 100 12/26/16 16:00 98.1 85 16 126/83 100 12/26/16 15:20 98.4 86 19 133/80 97 I/O 12/26/16 12/26/16 12/26/16 12/27/16 12/27/16 12/27/16 07:00 15:00 23:00 07:00 15:00 23:00 Intake Total 100 ml 120 ml 120 ml Balance 100 ml 120 ml 120 ml Intake Oral 100 ml 120 ml 120 ml # Voids 2 2 2 # Bowel Movements 0 0 0 Result Diagram: 12/27/1682312/27/16823 Objective Remarks GENERAL: 51 years old female Afro-[place]ic, in no acute distress SKIN: Positive discoloration on the dorsal surface of the right foot HEAD: Atraumatic. Normocephalic. No temporal or scalp tenderness. EYES: Pupils equal round and reactive. Extraocular motions intact. No scleral icterus. No injection or drainage. NECK: Trachea midline. No JVD or lymphadenopathy. CARDIOVASCULAR: Regular rate and rhythm without murmurs, gallops, or rubs. RESPIRATORY: Clear to auscultation. Breath sounds equal bilaterally. No wheezes , rales, or rhonchi. GASTROINTESTINAL: Abdomen soft, non-tender, nondistended. No guarding. MUSCULOSKELETAL: Extremities without clubbing, cyanosis but with mild RLE edema with severe tenderness even to light touch and some discoloration on the dorsal right foot NEUROLOGICAL: Awake and Slow to respond. Motor and sensory grossly within normal limits. slow speech. 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 (3) Closed left fibular fracture ICD Code: S82.402A Status: Chronic (4) Hypokalemia ICD Code: E87.6 Status: Acute (5) Generalized weakness ICD Code: R53.1 Status: Acute (6) Seizure disorder ICD Code: G40.909 Status: Chronic (7) Toxic metabolic encephalopathy ICD Code: G92 Status: Acute Assessment and Plan 12/27: Patient complained of severe pain and tenderness to touch with swelling and discoloration on her right lower extremity had discussed with the nurse, patient hasn't been on chemical DVT prophylaxis due to her GI bleed, will check ultrasound of the lower extremity rule out DVT if that's negative will do CT of the lower extremity, patient already had 3 views x-ray which was negative for fracture 2 days ago. Hemoglobin 10 today 51-year-old female with a history of pituitary tumor, seizures, and etoh abuse Symptomatic anemia: Etiology unclear. Given history of alcohol abuse. Need to rule out GI bleeding. Panendoscopy with no acute bleeding, concern for infectious process, biopsy taken -Hgb 5.4-->9.4 >>8s/p 2 units prbcs. Hemoglobin 7.2 today. Hemolysis workup increased LDH, normal haptoglobin. 2 more units of packed RBC ordered. Hemoglobin is 10 -GI following patient with duodenitis and gastritis positive for H. pylori. Treatment started Acute Encephalopathy: Multifactorial. Could be metabolic from alcohol abuse. However she does have a seizure disorder and a hyperdense sella on imaging. reports that her mental status has been declining since last year when she started having seizures. She continued to drink alcohol up until this hospitalization. -Consult neurology for recommendations discontinued Trileptal and started Keppra and Lamictal -Ammonia level normal. B-12, RPR and EEG all unremarkable. UA with many bacteria urine culture pending. Consulted ST for cognition -per [facility] pharmacy last refill of hydrocortisone was 3 months ago for one month Hypokalemia -Replaced History of Seizure disorder Resume outpatient medications including Lamictal and Trileptal Unsure about compliance Closed left fibular fracture: Nondisplaced distal fibula fracture. Initial injury about a month ago. Cast applied in the ED. Ortho consult regarding weightbearing status Generalized weakness: PT consulted History of pituitary tumor -Consult neurology for recommendations. Patient was supposed to follow up outpatient but states they were waiting for a call from the referral service. CT head noted with finding of Opacification of the sphenoid sinus with possible air-fluid level, a new finding. Denies sinus tenderness DVT prophylaxis: Scds. Chemoprophylaxis contraindicated due to anemia. Discharge Planning No payor source for SNF. [facility] following Problem Qualifiers (1) Closed left fibular fracture: Qualified Code: S82.832A - Closed fracture of distal end of left fibula, unspecified fracture morphology, initial encounter Darius Valentine MD Dec 27, 2016 14:43 injury about a month ago. Cast applied in the ED. Ortho consult regarding weightbearing status Generalized weakness: PT consulted History of pituitary tumor -Consult neurology for recommendations. Patient was supposed to follow up outpatient but states they were waiting for a call from the referral service. CT head noted with finding of Opacification of the sphenoid sinus with possible air-fluid level, a new finding. Denies sinus tenderness DVT prophylaxis: Scds. Chemoprophylaxis contraindicated due to anemia. Discharge Planning No payor source for SNF. [facility] following Problem Qualifiers (1) Closed left fibular fracture: Qualified Code: S82.832A - Closed fracture of distal end of left fibula, unspecified fracture morphology, initial encounter Darius Valentine MD Dec 27, 2016 14:43
[2016-12-27] MEDS: NICOTINE 14 MG/24 HR PATCH T-DERMAL SCH (15:56)
--- NOTE | 2016-12-27 18:14 | PD.CONS ---
cc: Kishan Jiménez Jr., MD HPI Service Orthopedic Surgeons Consult Requested By Primary Care Physician Everett Zamorano MD Admission Diagnosis Generalized Weakness, Anemia, hypokalemia, fibula fx Diagnoses: (1) Symptomatic anemia (2) Pituitary hemorrhage (3) Closed left fibular fracture (4) Hypokalemia (5) Generalized weakness (6) Seizure disorder (7) Toxic metabolic encephalopathy History of Present Illness 51 year-old -[place] female with a history of pituitary gland tumor, seizure disorder and a prior history of intracranial August 2015 was brought to the ED by her for evaluation of generalized weakness and decreased appetite over the past few months with significant weight loss. During this admission she complained of left ankle pain from a previously diagnosed left ankle fracture. Patient is a poor historian and her is at bedside, helping to answer questions. X-ray taken the emergency department reveal nondisplaced lateral malleolus fracture. Denies loss of consciousness. Currently patient's pain is 3 out of 10, exacerbated by any range of motion, relieved at rest and with IV pain medicine, pain is sharp nonradiating, not associated with any paresthesia and numbness to the right lower extremity. She denies any chest pain or shortness of breath. ROS - General Review of Systems Other 12 systems reviewed and are negative except for the one mentioned in history of present illness PFSH Past Family Social History Past Medical History Anxiety: Yes Headaches: Yes Hypertension: Yes Seizures: Yes Past Surgical History No (LEFT FOOT BUNION REMOVED) Reported Medications Lamotrigine 25 Mg Tab 25 Mg PO DAILY Hydrocortisone 5 Mg Tab 5 Mg PO BID Take with food to decrease GI upset Trileptal (Oxcarbazepine) 600 Mg Tab 600 Mg PO BID Allergies: Coded Allergies: No Known Allergies (Unverified , 12/21/16) Family History Family history positive for diabetes type 2 Social History Alcohol Use: Yes (daily) Tobacco Use: Yes (1 PACK PER 3 DAYS) Substance Use: Yes (marijuana Review of Systems Constitutional: DENIES: Diaphoretic episodes, Fatigue, Fever, Weight gain, Weight loss, Chills, Dizziness, Change in appetite, Night Sweats Eyes: DENIES: Blurred vision, Diplopia, Eye inflammation, Eye pain, Vision loss , Photosensitivity, Double Vision Ears, nose, mouth, throat: DENIES: Tinnitus, Hearing loss, Vertigo, Nasal discharge, Oral lesions, Throat pain, Hoarseness, Ear Pain, Running Nose, Epistaxis, Sinus Pain, Toothache, Odynophagia Respiratory: DENIES: Apneas, Cough, Snoring, Wheezing, Hemoptysis, Sputum production, Shortness of breath Gastrointestinal: DENIES: Abdominal pain, Black stools, Bloody stools, Constipation, Diarrhea, Nausea, Vomiting, Difficulty Swallowing, Anorexia Musculoskeletal: DENIES: Joint pain, Muscle aches, Stiffness, Joint Swelling, Back pain, Neck pain Past Family Social History Past Medical History Anxiety Headaches Hypertension Seizure D/O Pituitary gland tumor ICH Past Surgical History Left bunion removal Allergies: Coded Allergies: No Known Allergies (Unverified , 12/21/16) Active Ordered Medications Current Medications Medications (Trade) Dose Ordered Sig/Sylvia Route Start Time Stop Time Status Last Admin (NS Flush) 2 ml UNSCH PRN IV FLUSH 12/21/16 21:00 (NS Flush) 2 ml BID IV FLUSH 12/21/16 21:00 12/26/16 21:00 (Zofran Inj) 4 mg Q6H PRN IVP 12/21/16 21:00 12/23/16 20:40 (Narcan Inj) 0.4 mg UNSCH PRN IV 12/21/16 21:00 (Vasotec Inj) 1.25 mg Q6H PRN IV PUSH 12/21/16 21:00 12/27/16 00:26 (Pepto-Bismol Liq) 30 ml QID PO 12/25/16 18:00 01/08/17 17:59 12/27/16 17:34 (Flagyl) 250 mg QID PO 12/25/16 18:00 01/08/17 17:59 12/27/16 17:34 (Sumycin) 500 mg QID PO 12/25/16 18:00 01/08/17 17:59 12/27/16 17:34 (Pepcid) 20 mg BID PO 12/25/16 13:15 01/08/17 13:14 12/27/16 09:25 (LaMICtal) 50 mg BID PO 12/25/16 21:00 12/27/16 09:25 (Keppra) 500 mg Q12HR PO 12/25/16 21:00 12/27/16 09:25 (Heparin Inj) 5,000 units Q8HR SQ 12/27/16 14:00 12/27/16 14:37 ([place] 7.5-325 Mg) 1 tab Q4H PRN PO 12/27/16 12:45 ([place] 5-325 Mg) 1 tab Q4H PRN PO 12/27/16 12:45 12/27/16 14:42 (Habitrol 14 Mg Patch.24 Hr) 1 patch DAILY T-DERMAL 12/27/16 15:00 12/27/16 15:56 Miscellaneous Information 1 DAILY T-DERMAL 12/28/16 09:00 Reported Meds & Active Scripts Active Reported Lamotrigine 25 Mg Tab 25 Mg PO DAILY Hydrocortisone 5 Mg Tab 5 Mg PO BID Take with food to decrease GI upset Trileptal (Oxcarbazepine) 600 Mg Tab 600 Mg PO BID Family History States mother and maternal aunt both had cancer, does not know what type Social History Daily ETOH use-unable to quantify Smokes 1/3 pack of cigarettes per day (+) Marijuana use Physical Exam Vital Signs Vital Signs Date Time Temp Pulse Resp B/P Pulse Ox O2 Delivery O2 Flow Rate FiO2 12/27/16 16:31 96.5 83 17 111/71 100 12/27/16 12:07 97.0 73 17 138/83 100 12/27/16 08:21 96.4 81 18 124/85 100 12/27/16 08:00 75 12/27/16 04:00 96.4 75 18 116/75 100 12/27/16 00:00 98.3 85 18 164/96 98 12/26/16 20:00 98.8 85 18 142/84 100 12/26/16 19:00 89 Physical Exam Confused Head: NC/AT Neck: No pain with any range of motion and neck Pulmonary: Normal respiratory effort. Bilateral upper extremity: No deformities. Grossly neuro intact. 2+ radial artery pulses. Good cap refill. LEFT lower extremity: Grossly neuro intact. Tender to palpation of the lateral malleolus. Good ankle range of motion. + PT/DP pulses. Supple compartments. Negative Homans sign. Laboratory Laboratory Tests Test 12/27/16 08:24 White Blood Count 5.2 Red Blood Count 3.23 Hemoglobin 10.1 Hematocrit 28.8 Mean Corpuscular Volume 89.2 Mean Corpuscular Hemoglobin 31.2 Mean Corpuscular Hemoglobin 35.0 Concent Red Cell Distribution Width 18.2 Platelet Count 109 Mean Platelet Volume 8.8 Neutrophils (%) (Auto) 54.2 Lymphocytes (%) (Auto) 37.1 Monocytes (%) (Auto) 7.5 Eosinophils (%) (Auto) 0.4 Basophils (%) (Auto) 0.8 Neutrophils # (Auto) 2.8 Lymphocytes # (Auto) 1.9 Monocytes # (Auto) 0.4 Eosinophils # (Auto) 0.0 Basophils # (Auto) 0.0 CBC Comment DIFF FINAL Differential Comment Sodium Level 138 Potassium Level 3.2 Chloride Level 105 Carbon Dioxide Level 23.3 Anion Gap 10 Blood Urea Nitrogen 5 Creatinine 0.41 Estimat Glomerular Filtration 197 Rate Random Glucose 85 Calcium Level 8.2 Magnesium Level 1.9 Date/Time Procedure Status Source Growth 12/25/16 13:30 Urine Culture - Final Complete Urine Clean Catch 50-100,000 CFU/ML MIXED KEY... Result Diagram: 12/27/16 0824 12/27/16 0824 Imaging Last 72 hours Impressions Lower Extremity Ultrasound 12/27/16 0000 Signed Impressions: Service Date/Time: Tuesday, December 27, 2016 13:24 - CONCLUSION: Normal examination. Evangelista Martinez MD Assessment & Plan Assessment and Plan 51-year-old female with complicated past medical history brought in by her for failure to thrive. During this admission she reported left ankle pain from apreviously diagnosed left ankle fracture. It is unclear of when that injury occurred. On exam she is neurovascularly intact. She has minimal tenderness to palpation at the lateral malleolus. X-ray examination revealed a very stable ankle fracture with a nondisplaced fracture of the lateral malleolus. No need for any surgical intervention. Weightbearing as tolerated in a walking boot or regular shoes per her preference. Follow-up in [address] Jiménez, orthopedic clinic in [place]. Kishan Jiménez Jr., MD Dec 27, 2016 18:14
[2016-12-27] MEDS: SODIUM CHLORIDE 0.9% FLUSH 10 ML FLUSH IV FLUSH SCH (21:53)
--- NOTE | 2016-12-27 22:05 | RADRPT ---
EXAM DATE/TIME: 12/27/2016 21:31 [facility] COMPARISON: ANKLE RIGHT COMPLETE ([id number]), December 21, 2016, 18:46. INDICATIONS : Pain and swelling of right foot. RADIATION DOSE: 22.88 CTDIvol (mGy) MEDICAL HISTORY : Hypertension. SURGICAL HISTORY : None. ENCOUNTER: Initial ACUITY: 1 day PAIN SCALE: 10/10 LOCATION: Right foot TECHNIQUE: Volumetric scanning of the foot was performed. Using automated exposure control and adjustment of th e mA and/or kV according to patient size, radiation dose was kept as low as reasonably achievable to obtain optimal diagnostic quality images. FINDINGS: No definite fractures, or dislocations are identified. No definite lytic or sclerotic lesion is seen . The joint spaces are well maintained. CONCLUSION: Unremarkable study. Oli Rivero MD on December 27, 2016 at 22:02 Board Certified Radiologist. This report was verified electronically.
--- NOTE | 2016-12-27 22:08 | RADRPT ---
EXAM DATE/TIME: 12/27/2016 21:33 [facility] COMPARISON: No previous studies available for comparison. INDICATIONS : Pain and swelling of right ankle. RADIATION DOSE: 19.01 CTDIvol (mGy) MEDICAL HISTORY : Hypertension. SURGICAL HISTORY : None. ENCOUNTER: Initial ACUITY: 1 day PAIN SCALE: 10/10 LOCATION: Right ankle TECHNIQUE: Volumetric scanning of the ankle was performed. Using automated exposure control and adjustment of t he mA and/or kV according to patient size, radiation dose was kept as low as reasonably achievable to obtain optimal diagnostic quality images. FINDINGS: No definite fractures, or dislocations are identified. No definite lytic or sclerotic lesion is seen . The joint spaces are well maintained. CONCLUSION: Unremarkable study. Oli Rivero MD on December 27, 2016 at 22:04 Board Certified Radiologist. This report was verified electronically.
[2016-12-28] VITALS (9 sets, daily range): BP systolic 123–185; BP diastolic 77–87; PULSE 68–80; RESP 17–20; TEMP 95.4–97.5; O2SAT 97–100
[2016-12-28] MEDS: HEPARIN SODIUM - SQ 10,000 UNITS/ML VIAL SQ SCH ×3 (06:29→21:01)
[2016-12-28] MEDS: ACETAMINOPHEN/HYDROcodone 325 MG/7.5 MG TAB PO PRN (06:31)
[2016-12-28] MEDS: REMOVE OLD PATCH T-DERMAL SCH (09:00)
[2016-12-28] MEDS: BISMUTH SUBSALICYLATE 240 ML BTL PO SCH ×4 (09:00→20:59)
[2016-12-28] MEDS: SODIUM CHLORIDE 0.9% FLUSH 10 ML FLUSH IV FLUSH SCH ×2 (09:02→21:01)
[2016-12-28] MEDS: NICOTINE 14 MG/24 HR PATCH T-DERMAL SCH (09:04)
[2016-12-28] MEDS: FAMOTIDINE 20 MG TAB PO SCH ×2 (09:05→21:00)
[2016-12-28] MEDS: lamoTRIgine 25 MG TAB PO SCH ×2 (09:05→21:00)
[2016-12-28] MEDS: levETIRAcetam 500 MG TAB PO SCH ×2 (09:05→21:00)
[2016-12-28] MEDS: metroNIDAZOLE 250 MG TAB PO SCH ×4 (09:06→21:00)
[2016-12-28] MEDS: TETRACYCLINE HCL 250 MG CAP PO SCH ×4 (09:06→20:59)
[2016-12-28] MEDS ORDERED: BISACODYL 10 MG SUPP RECTAL PRN (09:30)
[2016-12-28] MEDS ORDERED: DOCUSATE SODIUM 50 MG/SENNA 8.6 MG TAB PO PRN (09:30)
[2016-12-28] MEDS ORDERED: MAGNESIUM HYDROXIDE SUSP 30 ML CUP PO PRN (09:30)
--- NOTE | 2016-12-28 11:15 | HHI.PR ---
Subjective Remarks Patient awake alert in bed she is not answering question just staring at me She still feeling tender in her right lower extremity and foot, CT and ultrasound came back unremarkable, question cellulitis>> will check CRP and sedimentation rate Patient does not answer any question or give any history Objective Vitals Vital Signs Date Time Temp Pulse Resp B/P Pulse Ox O2 Delivery O2 Flow Rate FiO2 12/28/16 07:45 95.4 70 18 157/77 100 12/28/16 04:00 95.4 80 20 137/86 97 12/28/16 00:00 96.9 78 20 137/85 100 12/27/16 20:00 97.1 79 22 143/89 100 12/27/16 20:00 97.5 90 20 154/86 95 12/27/16 19:15 79 12/27/16 16:31 96.5 83 17 111/71 100 12/27/16 12:07 97.0 73 17 138/83 100 I/O 12/27/16 12/27/16 12/27/16 12/28/16 12/28/16 12/28/16 07:00 15:00 23:00 07:00 15:00 23:00 Intake Total 120 ml 60 ml Balance 120 ml 60 ml Intake Oral 120 ml 60 ml # Voids 2 1 # Bowel Movements 0 0 Result Diagram: 12/27/1682312/27/16823 Objective Remarks - GENERAL: 51 years old female Afro-Tristanian, in no acute distress SKIN: Positive discoloration on the dorsal surface of the right foot HEAD: Atraumatic. Normocephalic. No temporal or scalp tenderness. EYES: Pupils equal round and reactive. Extraocular motions intact. No scleral icterus. No injection or drainage. NECK: Trachea midline. No JVD or lymphadenopathy. CARDIOVASCULAR: Regular rate and rhythm without murmurs, gallops, or rubs. RESPIRATORY: Clear to auscultation. Breath sounds equal bilaterally. No wheezes , rales, or rhonchi. GASTROINTESTINAL: Abdomen soft, non-tender, nondistended. No guarding. MUSCULOSKELETAL: Extremities without clubbing, cyanosis but with mild RLE edema with severe tenderness even to light touch and some discoloration on the dorsal right foot NEUROLOGICAL: Awake alert not answering question motor and sensory grossly within normal limits. slow speech. 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 (3) Closed left fibular fracture ICD Code: S82.402A Status: Chronic (4) Hypokalemia ICD Code: E87.6 Status: Acute (5) Generalized weakness ICD Code: R53.1 Status: Acute (6) Seizure disorder ICD Code: G40.909 Status: Chronic (7) Toxic metabolic encephalopathy ICD Code: G92 Status: Acute Assessment and Plan 12/27: Patient complained of severe pain and tenderness to touch with swelling and discoloration on her right lower extremity had discussed with the nurse, patient hasn't been on chemical DVT prophylaxis due to her GI bleed, will check ultrasound of the lower extremity rule out DVT if that's negative will do CT of the lower extremity, patient already had 3 views x-ray which was negative for fracture 2 days ago. Hemoglobin 10 today 12/28: Right lower extremity and foot batch or continuous still operator, ultrasound and CT unremarkable,? Cellulitis>> check sedimentation rate and CRP versus peripheral neuropathy 51-year-old female with a history of pituitary tumor, seizures, and etoh abuse Symptomatic anemia: Etiology unclear. Given history of alcohol abuse. Need to rule out GI bleeding. Panendoscopy with no acute bleeding, concern for infectious process, biopsy taken -Hgb 5.4-->9.4 >>8s/p 2 units prbcs. Hemoglobin 7.2 today. Hemolysis workup increased LDH, normal haptoglobin. 2 more units of packed RBC ordered. Hemoglobin is 10/29 H. pylori gastritis/duodenitis Treatment started with Protonix and amoxicillin Acute Encephalopathy: Multifactorial. Could be metabolic from alcohol abuse. However she does have a seizure disorder and a hyperdense sella on imaging. reports that her mental status has been declining since last year when she started having seizures. She continued to drink alcohol up until this hospitalization. -Consult neurology for recommendations discontinued Trileptal and started Keppra and Lamictal -Ammonia level normal. B-12, RPR and EEG all unremarkable. UA with many bacteria urine culture pending. Consulted ST for cognition -per [facility] pharmacy last refill of hydrocortisone was 3 months ago for one month History of Seizure disorder Resume outpatient medications including Lamictal and Trileptal Unsure about compliance Closed left fibular fracture: Nondisplaced distal fibula fracture. Initial injury about a month ago. Cast applied in the ED. Ortho consult regarding weightbearing status Generalized weakness: PT consulted History of pituitary tumor -Consult neurology for recommendations. Patient was supposed to follow up outpatient but states they were waiting for a call from the referral service. CT head noted with finding of Opacification of the sphenoid sinus with possible air-fluid level, a new finding. Denies sinus tenderness DVT prophylaxis: Scds. Chemoprophylaxis contraindicated due to anemia. Discharge Planning No payor source for [facility]. [facility] following Problem Qualifiers (1) Closed left fibular fracture: Qualified Code: S82.832A - Closed fracture of distal end of left fibula, unspecified fracture morphology, initial encounter Darius Valentine MD Dec 28, 2016 11:15 unspecified fracture morphology, initial encounter Darius Valentine MD Dec 28, 2016 11:15
[2016-12-28] MEDS: ACETAMINOPHEN/HYDROcodone 325 MG/5 MG TAB PO PRN ×2 (11:28→16:45)
[2016-12-28] MEDS: ENALAPRILAT 1.25 MG/ML VIAL IV PUSH PRN (14:58)
[2016-12-29 04:00] VITALS: BP 141/87; PULSE 80; RESP 18; TEMP 97.3; O2SAT 100
[2016-12-29] MEDS: HEPARIN SODIUM - SQ 10,000 UNITS/ML VIAL SQ SCH ×3 (05:48→22:43)
[2016-12-29] MEDS: ACETAMINOPHEN/HYDROcodone 325 MG/7.5 MG TAB PO PRN ×3 (05:49→22:42)
[2016-12-29 08:25] VITALS: BP 124/87; PULSE 74; RESP 18; TEMP 96; O2SAT 100
[2016-12-29] MEDS: BISMUTH SUBSALICYLATE 240 ML BTL PO SCH ×4 (09:00→22:41)
[2016-12-29] MEDS: REMOVE OLD PATCH T-DERMAL SCH (09:00)
[2016-12-29] MEDS: SODIUM CHLORIDE 0.9% FLUSH 10 ML FLUSH IV FLUSH SCH ×2 (09:00→22:43)
[2016-12-29] MEDS: FAMOTIDINE 20 MG TAB PO SCH ×2 (09:12→22:44)
[2016-12-29] MEDS: metroNIDAZOLE 250 MG TAB PO SCH ×4 (09:12→22:44)
[2016-12-29] MEDS: levETIRAcetam 500 MG TAB PO SCH ×2 (09:12→22:43)
[2016-12-29] MEDS: lamoTRIgine 25 MG TAB PO SCH ×2 (09:13→22:44)
[2016-12-29] MEDS: TETRACYCLINE HCL 250 MG CAP PO SCH ×4 (09:13→22:44)
[2016-12-29] MEDS: NICOTINE 14 MG/24 HR PATCH T-DERMAL SCH (10:54)
[2016-12-29] MEDS ORDERED: LEVE500 PO (11:25)
[2016-12-29] MEDS ORDERED: HYDR-3580 PO (11:25)
[2016-12-29] MEDS ORDERED: BISMS PO (11:25)
[2016-12-29] MEDS ORDERED: LAMO25 PO (11:25)
[2016-12-29] MEDS ORDERED: HEPA10003 SQ (11:25)
[2016-12-29] MEDS ORDERED: METR250 PO (11:25)
[2016-12-29] MEDS ORDERED: TETR250C PO (11:25)
[2016-12-29] MEDS ORDERED: FAMO20TA2 PO (11:25)
--- NOTE | 2016-12-29 11:39 | HHI.DS ---
Discharge Summary Admission Date Dec 21, 2016 at 20:55 Discharge Date: December 30, 2016 Admitting Diagnosis Generalized Weakness, Anemia, hypokalemia, fibula fx (1) Symptomatic anemia ICD Code: D64.9 (2) Pituitary hemorrhage ICD Code: E23.6 (3) Closed left fibular fracture ICD Code: S82.402A (4) Hypokalemia ICD Code: E87.6 (5) Generalized weakness ICD Code: R53.1 (6) Seizure disorder ICD Code: G40.909 (7) Toxic metabolic encephalopathy ICD Code: G92 Procedures EGD, left lower extremity casting Brief History - From Admission 51 year-old -[place] female with a history of pituitary gland tumor, seizure disorder and a prior history of intracranial August 2015 was brought to the ED by her for evaluation of generalized weakness and decreased appetite over the past few months with significant weight loss. Abnormal labs include H&H 5.4/15.5 however patient denies any GI bleed and she had negative Hemoccult. She also denies any menses over the past few weeks to months secondary to medication as reported. Nevertheless she denies any . She complains of chronic left foot secondary to bunion however she was recently diagnosed with a closed left fibular fracture. She is quite a poor historian so is her . But patient also presented with alteration in her mentation for which head CT was ordered. CBC/BMP: 12/27/16 0824 12/27/16 0824 Significant Findings Laboratory Tests Test 12/27/16 12/28/16 08:24 20:51 Red Blood Count 3.23 MIL/MM3 (4.00-5.30) Hemoglobin 10.1 GM/DL (11.6-15.3) Hematocrit 28.8 % (35.0-46.0) Red Cell Distribution Width 18.2 % (11.6-17.2) Platelet Count 109 TH/MM3 (150-450) Potassium Level 3.2 MEQ/L (3.5-5.1) Blood Urea Nitrogen 5 MG/DL (7-18) Creatinine 0.41 MG/DL (0.50-1.00) Calcium Level 8.2 MG/DL (8.5-10.1) C-Reactive Protein 2.30 MG/DL (0.00-0.30) PE at Discharge - GENERAL: 51 years old female Afro-[place], in no acute distress SKIN: Positive discoloration on the dorsal surface of the right foot HEAD: Atraumatic. Normocephalic. No temporal or scalp tenderness. EYES: Pupils equal round and reactive. Extraocular motions intact. No scleral icterus. No injection or drainage. NECK: Trachea midline. No JVD or lymphadenopathy. CARDIOVASCULAR: Regular rate and rhythm without murmurs, gallops, or rubs. RESPIRATORY: Clear to auscultation. Breath sounds equal bilaterally. No wheezes , rales, or rhonchi. GASTROINTESTINAL: Abdomen soft, non-tender, nondistended. No guarding. MUSCULOSKELETAL: Extremities without clubbing, cyanosis but with mild RLE edema with severe tenderness even to light touch and some discoloration on the dorsal right foot NEUROLOGICAL: Awake alert not answering question motor and sensory grossly within normal limits. slow speech. Hospital Course 51 years old female with history of pituitary tumor seizure ethanol abuse admitted for generalized weakness anemia metabolic encephalopathy, anemic workup has been done along with GI consultation patient had EGD with biopsy she was found to have gastritis with H. pylori started on treatment . Regarding encephalopathy neurology consulted suggested factorial, switch Tegretol to Keppra and Lamictal and to follow up as an outpatient. Patient had close left fibular fracture due to her fall, ortho consulted status post casting, recommended rehabilitation. Patient complained of right lower extremity tenderness workup has been done including x-ray and CT which was unremarkable, ultrasound also was unremarkable for DVT most likely neuropathy patient to follow up with Dr. Browne as an outpatient [id number] encounter performed with the patient on discharge day, as well as physical exam, summary of hospitalization course and postdischarge plan has been D/W the patient. D/W nurse D/W casework specialist. Discharge medications reviewed and printed and signed, post discharge follow up visit with PCP and other specialist as well as Brief hospital course and discharge summary has been placed. Pt Condition on Discharge: Fair Discharge Disposition: Discharge to SNF Discharge Time: > 30 minutes Discharge Instructions DIET: Follow Instructions for: Heart Healthy Diet, Diabetic Diet Activities you can perform: See Additionl Instruction Other Activity Instructions: Per PT recommendation Follow up Referrals: Gastroenterology - 10 Days with Davin Lerma MD Neurology - 10 Days with Pamela Browne MD Orthopedics - 2 Weeks with Kishan Jiménez Jr., MD New Medications: Bismuth Subsalicylate Liq (Bismatrol Liq) 262 Mg/15 Ml Susp 30 ML PO QID H. pylori #40 TAB Famotidine (Famotidine) 20 Mg Tab 20 MG PO BID H. pylori #20 TAB Heparin Sodium (Porcine) (Heparin Sodium) 10,000 Unit/Ml Inj 5000 UNITS SQ Q8HR dvt proph #14 INJECTION Hydrocodone-Acetaminophen (Hydrocodone-Acetaminophen) 7.5-325 mg Tab 1 TAB PO Q4H PRN pain 3-5 #20 TAB Lamotrigine (Lamictal) 25 Mg Tab 50 MG PO BID seizure #60 TAB Levetiracetam (Keppra) 500 Mg Tab 500 MG PO Q12HR seizure #60 TAB Metronidazole (Flagyl) 250 Mg Tab 250 MG PO QID h pylori #40 TAB Tetracycline (Tetracycline) 250 Mg Cap 500 MG PO QID h pylori #40 CAP Darius Valentine MD December 29, 2016 11:39
[2016-12-29 11:51] VITALS: BP 165/98; PULSE 76; RESP 17; TEMP 96.6; O2SAT 100
--- NOTE | 2016-12-29 12:29 | HHI.PR ---
Subjective Remarks Patient looks the same clinically, not very responsive and answering questions, awake alert, still complaining of tenderness to touch in her right foot however all workup came back negative for DVT or fracture most likely it's due to trauma after the fall Objective Vitals Vital Signs Date Time Temp Pulse Resp B/P Pulse Ox O2 Delivery O2 Flow Rate FiO2 12/29/16 11:51 96.6 76 17 165/98 100 12/29/16 08:25 96.0 74 18 124/87 100 12/29/16 04:00 97.3 80 18 141/87 100 12/28/16 22:00 96.7 75 18 140/84 100 12/28/16 20:00 97.5 80 18 123/81 97 12/28/16 19:15 75 12/28/16 16:28 97.2 68 17 185/85 100 I/O 12/28/16 12/28/16 12/28/16 12/29/16 12/29/16 12/29/16 07:00 15:00 23:00 07:00 15:00 23:00 Intake Total 60 ml 360 ml Balance 60 ml 360 ml Intake Oral 60 ml 360 ml # Voids 1 1 # Bowel Movements 0 Result Diagram: 12/27/1682312/27/16823 Objective Remarks - GENERAL: 51 years old female Afro-Angolan, in no acute distress SKIN: Positive discoloration on the dorsal surface of the right foot HEAD: Atraumatic. Normocephalic. No temporal or scalp tenderness. EYES: Pupils equal round and reactive. Extraocular motions intact. No scleral icterus. No injection or drainage. NECK: Trachea midline. No JVD or lymphadenopathy. CARDIOVASCULAR: Regular rate and rhythm without murmurs, gallops, or rubs. RESPIRATORY: Clear to auscultation. Breath sounds equal bilaterally. No wheezes , rales, or rhonchi. GASTROINTESTINAL: Abdomen soft, non-tender, nondistended. No guarding. MUSCULOSKELETAL: Extremities without clubbing, cyanosis but with mild RLE edema with severe tenderness even to light touch and some discoloration on the dorsal right foot NEUROLOGICAL: Awake alert not answering question motor and sensory grossly within normal limits. slow speech. 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 (3) Closed left fibular fracture ICD Code: S82.402A Status: Chronic (4) Hypokalemia ICD Code: E87.6 Status: Acute (5) Generalized weakness ICD Code: R53.1 Status: Acute (6) Seizure disorder ICD Code: G40.909 Status: Chronic (7) Toxic metabolic encephalopathy ICD Code: G92 Status: Acute Assessment and Plan 12/27: Patient complained of severe pain and tenderness to touch with swelling and discoloration on her right lower extremity had discussed with the nurse, patient hasn't been on chemical DVT prophylaxis due to her GI bleed, will check ultrasound of the lower extremity rule out DVT if that's negative will do CT of the lower extremity, patient already had 3 views x-ray which was negative for fracture 2 days ago. Hemoglobin 10 today 12/28: Right lower extremity and foot still cleaner tube, ultrasound and CT unremarkable,? Cellulitis>> check sedimentation rate and CRP versus peripheral neuropathy 12/29: Right foot tenderness mostly due to trauma, discussed with ID attending unlikely related to cellulitis, supportive care and patient is stable to be transferred to rehabilitation discussed with CIR agent A/P: 51-year-old female with a history of pituitary tumor, seizures, and etoh abuse Symptomatic anemia: Etiology unclear. Given history of alcohol abuse. Need to rule out GI bleeding. Panendoscopy with no acute bleeding, concern for infectious process, biopsy taken -Hgb 5.4-->9.4 >>8s/p 2 units prbcs. Hemoglobin 7.2 today. Hemolysis workup increased LDH, normal haptoglobin. 2 more units of packed RBC ordered. Hemoglobin is 10/ -GI following patient with duodenitis and gastritis positive for H. pylori. Treatment started Acute Encephalopathy: Multifactorial. Could be metabolic from alcohol abuse. However she does have a seizure disorder and a hyperdense sella on imaging. reports that her mental status has been declining since last year when she started having seizures. She continued to drink alcohol up until this hospitalization. -Consult neurology for recommendations discontinued Trileptal and started Keppra and Lamictal -Ammonia level normal. B-12, RPR and EEG all unremarkable. UA with many bacteria urine culture pending. Consulted ST for cognition -per [facility] pharmacy last refill of hydrocortisone was 3 months ago for one month Hypokalemia -Replaced History of Seizure disorder Resume outpatient medications including Lamictal and Trileptal Unsure about compliance Closed left fibular fracture: Nondisplaced distal fibula fracture. Initial injury about a month ago. Cast applied in the ED. Ortho consult regarding weightbearing status Generalized weakness: PT consulted History of pituitary tumor -Consult neurology for recommendations. Patient was supposed to follow up outpatient but states they were waiting for a call from the referral service. CT head noted with finding of Opacification of the sphenoid sinus with possible air-fluid level, a new finding. Denies sinus tenderness DVT prophylaxis: Scds. Chemoprophylaxis contraindicated due to anemia. Discharge Planning No payor source for [facility]. [facility] following Problem Qualifiers (1) Closed left fibular fracture: Qualified Code: S82.832A - Closed fracture of distal end of left fibula, unspecified fracture morphology, initial encounter Darius Valentine MD December 29, 2016 12:29
[2016-12-29 15:22] LABS: AUTOMATED NEUTROPHIL # 2.9 TH/MM3 (1.8-7.7); BASOPHIL % 0.7 % (0.0-2.0); EOSINOPHIL % 0.7 % (0.0-4.0); HEMATOCRIT 33.9 % (35.0-46.0); HEMO FLAGS DIFF FINAL; LYMPH % 44.5 % (9.0-44.0); LYMPHOCYTE # 2.7 TH/MM3 (1.0-4.8); MEAN CELL VOLUME 91.4 FL (80.0-100.0); MEAN CORPUSCULAR HEMOGLOBIN 30.9 PG (27.0-34.0); MEAN CORPUSCULAR HGB CONC 33.8 % (32.0-36.0); NEUT % 48.1 % (16.0-70.0); PLATELET COUNT 190 TH/MM3 (150-450); RED BLOOD COUNT 3.71 MIL/MM3 (4.00-5.30); RED CELL DISTRIBUTION WIDTH 18.8 % (11.6-17.2); WHITE BLOOD COUNT 6.1 TH/MM3 (4.0-11.0)
[2016-12-29] MEDS: ACETAMINOPHEN/HYDROcodone 325 MG/5 MG TAB PO PRN (18:01)
[2016-12-29 20:00] VITALS: BP 170/99; PULSE 66; RESP 20; TEMP 97.3; O2SAT 100
[2016-12-29] MEDS: ENALAPRILAT 1.25 MG/ML VIAL IV PUSH PRN (22:42)
[2016-12-30] VITALS (7 sets, daily range): BP systolic 104–136; BP diastolic 76–95; PULSE 70–94; RESP 18–20; TEMP 96.8–97.2; O2SAT 100
[2016-12-30] MEDS: ACETAMINOPHEN/HYDROcodone 325 MG/7.5 MG TAB PO PRN (06:47)
[2016-12-30] MEDS: HEPARIN SODIUM - SQ 10,000 UNITS/ML VIAL SQ SCH ×2 (06:48→13:12)
[2016-12-30] MEDS: levETIRAcetam 500 MG TAB PO SCH (09:11)
[2016-12-30] MEDS: metroNIDAZOLE 250 MG TAB PO SCH ×3 (09:11→17:08)
[2016-12-30] MEDS: lamoTRIgine 25 MG TAB PO SCH (09:11)
[2016-12-30] MEDS: FAMOTIDINE 20 MG TAB PO SCH (09:11)
[2016-12-30] MEDS: TETRACYCLINE HCL 250 MG CAP PO SCH ×3 (09:11→17:08)
[2016-12-30] MEDS: BISMUTH SUBSALICYLATE 240 ML BTL PO SCH ×3 (09:11→17:08)
[2016-12-30] MEDS: SODIUM CHLORIDE 0.9% FLUSH 10 ML FLUSH IV FLUSH SCH (09:12)
[2016-12-30] MEDS: REMOVE OLD PATCH T-DERMAL SCH (09:12)
[2016-12-30] MEDS: NICOTINE 14 MG/24 HR PATCH T-DERMAL SCH (09:12)
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
[2017-01-09] MEDS ORDERED: GETGO ROLLING W1 MI1 (07:53)
[2017-01-09] MEDS ORDERED: WHEEMIS3 (07:53)
[2017-01-09] MEDS ORDERED: [UNRECOGNIZED DRUG - OTHER] (07:53)
[2017-01-12] MEDS ORDERED: LEVE500 PO (11:52)
[2017-01-12] MEDS ORDERED: HYDR-3580 PO (11:52)
[2017-01-12] MEDS ORDERED: AMLO5 PO (11:52)
[2017-01-12] MEDS ORDERED: MIRTA15 PO (11:52)
[2017-01-12] MEDS ORDERED: FAMO20TA2 PO (11:52)
[2017-01-12] MEDS ORDERED: GABA600T PO (11:52)
[2017-01-12] MEDS ORDERED: LAMO25 PO (11:52)
[2017-01-12] MEDS ORDERED: METO25TA3 PO (11:52)
[2017-01-12] MEDS ORDERED: FOLI1TAB4 PO (11:52)
[2017-01-12] MEDS ORDERED: NICO14DI T-DERMAL (11:52)
[2017-01-12] MEDS ORDERED: VITA100T2 PO (11:52)
== END 2016-12-30 17:53 | DRG 811 ==
LOC: NEPC 17:58 → NEDA 20:55 → N06A 22:34 → N05A 12-23 15:51
PROVIDERS: ADMIT Hospitalist; ATTEND Hospitalist
PROC: 30233N1 Transfusion of Nonautologous Red Blood Cells into Peripheral Vein, Percutaneous Approach (ICD-10-PCS; 2016-12-21)
PROC: 0DBP8ZX Excision of Rectum, Via Natural or Artificial Opening Endoscopic, Diagnostic (ICD-10-PCS; 2016-12-23)
PROC: 0DBK8ZX Excision of Ascending Colon, Via Natural or Artificial Opening Endoscopic, Diagnostic (ICD-10-PCS; 2016-12-23)
PROC: 0DBL8ZX Excision of Transverse Colon, Via Natural or Artificial Opening Endoscopic, Diagnostic (ICD-10-PCS; 2016-12-23)
PROC: 0DBM8ZX Excision of Descending Colon, Via Natural or Artificial Opening Endoscopic, Diagnostic (ICD-10-PCS; 2016-12-23)
PROC: 0DBN8ZX Excision of Sigmoid Colon, Via Natural or Artificial Opening Endoscopic, Diagnostic (ICD-10-PCS; 2016-12-23)
PROC: 0DB98ZX Excision of Duodenum, Via Natural or Artificial Opening Endoscopic, Diagnostic (ICD-10-PCS; principal; 2016-12-23 11:45)
PROC: 0DB68ZX Excision of Stomach, Via Natural or Artificial Opening Endoscopic, Diagnostic (ICD-10-PCS; 2016-12-23 11:45)
DX: D64.9 Anemia, unspecified (principal); G93.41 Metabolic encephalopathy; E46 Unspecified protein-calorie malnutrition; R63.0 Anorexia; E23.6 Other disorders of pituitary gland; I10 Essential (primary) hypertension; E87.6 Hypokalemia; G40.909 Epilepsy, unspecified, not intractable, without status epilepticus; R53.1 Weakness; K29.80 Duodenitis without bleeding; K29.50 Unspecified chronic gastritis without bleeding; D12.8 Benign neoplasm of rectum; B96.81 Helicobacter pylori [H. pylori] as the cause of diseases classified elsewhere; S82.65XA Nondisplaced fracture of lateral malleolus of left fibula, initial encounter for closed fracture; F17.210 Nicotine dependence, cigarettes, uncomplicated; K63.89 Other specified diseases of intestine; W19.XXXA Unspecified fall, initial encounter
CPT/HCPCS: 36430; 70450; 71010; 73610; 73700; 76937; 80048; 80053; 80076; 80156; 80185; 81001; 82140; 82607; 83010; 83540; 83550; 83615; 83690; 83735; 84443; 85025; 85027; 85610; 85652; 85730; 86140; 86592; 86850; 86900; 86901; 86920; 87086; 88305; 88312; 93005; 93971; 95819; 96360; J1644; J2405; J3480; J7030; J7050; L2114; P9016

== ENCOUNTER 2017-05-14 00:53 | Inpatient (IN) | payer MEDICAID, OTHER ==
[2017-05-13] MEDS: levETIRAcetam 500 MG TAB PO SCH (23:00)
[~2017-05-14] VITALS: Ht 160 cm; Wt 60.2 kg
[~2017-05-14 00:53] MED LIST changes: +AMLO5 PO; -CIPR500T4 PO; +FAMO20TA2 PO; +FOLI1TAB4 PO; +GABA600T PO; +GETGO ROLLING W1 MI1; +HYDR-3580 PO; -HYDRO10 PO; -LAMO150T PO; +LAMO25 PO; -LAMO25TA PO; +LEVE500 PO; -LORTA5 PO; +METO25TA3 PO; +MIRTA15 PO; +NICO14DI T-DERMAL; -NORV5TAB PO; -OXCA600T PO; -PHEN100 PO; +VITA100T2 PO; +WHEEMIS3; -ZOFR4TAB3 SL; +[UNRECOGNIZED DRUG - OTHER]
[2017-05-14 01:56] VITALS: BP 105/62; PULSE 64; RESP 16; TEMP 98.2; O2SAT 100
[2017-05-14 02:41] LABS: BACTERIA, URINE RARE /hpf; BLOOD, URINE NEG (NEG); COMMENT (UR) CULT NOT INDICATED; CULTURE IF INDICATED CULT NOT INDICATED; GLUCOSE,URINE NEG (NEG); HYALINE CAST, URINE 17 /lpf (RARE); KETONE, URINE NEG (NEG); MUCUS URINE FEW /lpf (OCC); NITRITE,URINE NEG (NEG); SQUAMOUS EPITHELIAL CELL URINE 4 /hpf (0-5); URINE COLOR YELLOW (YELLW/STRAW)
[2017-05-14 02:43] LABS: AUTOMATED NEUTROPHIL # 3.7 TH/MM3 (1.8-7.7); BASOPHIL # 0.1 TH/MM3 (0-0.2); BASOPHIL % 1.3 % (0.0-2.0); EOSINOPHIL # 0.2 TH/MM3 (0-0.4); EOSINOPHIL % 2.5 % (0.0-4.0); HEMATOCRIT 38.4 % (35.0-46.0); HEMO FLAGS DIFF FINAL; LYMPH % 35.6 % (9.0-44.0); LYMPHOCYTE # 2.4 TH/MM3 (1.0-4.8); MEAN CELL VOLUME 104.3 FL (80.0-100.0); MEAN CORPUSCULAR HEMOGLOBIN 35.5 PG (27.0-34.0); MONO % 7.1 % (0.0-8.0); NEUT % 53.5 % (16.0-70.0); PLATELET COUNT 403 TH/MM3 (150-450); RED BLOOD COUNT 3.68 MIL/MM3 (4.00-5.30); RED CELL DISTRIBUTION WIDTH 14.9 % (11.6-17.2); WHITE BLOOD COUNT 6.8 TH/MM3 (4.0-11.0)
[2017-05-14 03:01] LABS: ACETAMINOPHEN 2.2 MCG/ML (10.0-30.0); ALT (GPT) 12 U/L (10-53); ANION GAP 8 MEQ/L (5-15); AST (GOT) 12 U/L (15-37); BICARBONATE 23.4 MEQ/L (21.0-32.0); BLOOD UREA NITROGEN 7 MG/DL (7-18); CHLORIDE 108 MEQ/L (98-107); GLOMERULAR FILTRATION RATE 91 ML/MIN (>89); POTASSIUM 3.9 MEQ/L (3.5-5.1); SODIUM (NA) 139 MEQ/L (136-145)
[2017-05-14 03:03] LABS: ALCOHOL 6 MG/DL (0-5)
[2017-05-14 03:11] LABS: ALKALINE PHOSPHATASE 139 U/L (45-117); TOTAL BILIRUBIN ADULT 0.3 MG/DL (0.2-1.0)
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
[2017-05-14 06:27] VITALS: BP 117/52; PULSE 71; RESP 16; TEMP 98.4; O2SAT 96
[2017-05-14 08:34] VITALS: BP 110/65; PULSE 58; PULSE 67; RESP 17; O2SAT 100; O2SAT 97
[2017-05-14] MEDS ORDERED: ACETAMINOPHEN 325 MG TAB PO PRN (15:30)
[2017-05-14] MEDS ORDERED: ALUMINUM/MAGNESIUM/SIMETH 30 ML CUP PO PRN (15:30)
[2017-05-14] MEDS ORDERED: MAGNESIUM HYDROXIDE SUSP 30 ML CUP PO PRN (15:30)
[2017-05-14] MEDS ORDERED: LORazepam 2 MG/ML VIAL IM PRN (15:30)
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
[2017-05-14 16:37] VITALS: BP 124/77; PULSE 68; RESP 18; TEMP 95.7; O2SAT 100
[2017-05-14] MEDS: lamoTRIgine 25 MG TAB PO SCH (21:00)
[2017-05-14] MEDS: LORazepam 1 MG TAB PO PRN (23:00)
[2017-05-15] MEDS: traZODone HCL 50 MG TAB PO PRN ×2 (01:00→20:50)
[2017-05-15 06:09] VITALS: BP 126/80; PULSE 80; RESP 18; TEMP 99; O2SAT 100
[2017-05-15] MEDS: lamoTRIgine 25 MG TAB PO SCH ×2 (08:27→20:50)
[2017-05-15] MEDS: levETIRAcetam 500 MG TAB PO SCH ×2 (08:27→20:51)
[2017-05-15] MEDS: NICOTINE 21 MG/24 HR PATCH T-DERMAL SCH (08:29)
[2017-05-15] MEDS: REMOVE OLD PATCH T-DERMAL SCH (08:29)
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
[2017-05-15 12:51] LABS: AUTOMATED NEUTROPHIL # 2.4 TH/MM3 (1.8-7.7); BASOPHIL % 0.6 % (0.0-2.0); EOSINOPHIL # 0.1 TH/MM3 (0-0.4); EOSINOPHIL % 1.4 % (0.0-4.0); HEMATOCRIT 36.8 % (35.0-46.0); HEMO FLAGS DIFF FINAL; LYMPHOCYTE # 2.3 TH/MM3 (1.0-4.8); MEAN CORPUSCULAR HEMOGLOBIN 35.3 PG (27.0-34.0); MEAN CORPUSCULAR HGB CONC 33.6 % (32.0-36.0); MONO % 6.1 % (0.0-8.0); NEUT % 46.9 % (16.0-70.0); PLATELET COUNT 380 TH/MM3 (150-450); RED BLOOD COUNT 3.51 MIL/MM3 (4.00-5.30); RED CELL DISTRIBUTION WIDTH 14.8 % (11.6-17.2); WHITE BLOOD COUNT 5.1 TH/MM3 (4.0-11.0)
[2017-05-15 13:14] LABS: ANION GAP 10 MEQ/L (5-15); AST (GOT) 13 U/L (15-37); BICARBONATE 25.4 MEQ/L (21.0-32.0); BLOOD UREA NITROGEN 13 MG/DL (7-18); CHLORIDE 104 MEQ/L (98-107); GLOMERULAR FILTRATION RATE 116 ML/MIN (>89); POTASSIUM 4.2 MEQ/L (3.5-5.1); SODIUM (NA) 139 MEQ/L (136-145)
[2017-05-15 13:15] LABS: ALT (GPT) 13 U/L (10-53)
[2017-05-15] MEDS ORDERED: FLUMAZENIL 0.5 MG/5 ML VIAL IV PUSH PRN (13:30)
[2017-05-15] MEDS ORDERED: LORazepam 2 MG/ML VIAL IV PUSH PRN ×4 (13:30)
[2017-05-15] MEDS ORDERED: LORazepam 1 MG TAB PO PRN (13:30)
[2017-05-15] MEDS ORDERED: LORazepam 2 MG TAB PO PRN (13:30)
[2017-05-15 13:41] LABS: ALKALINE PHOSPHATASE 128 U/L (45-117); HDL CHOLESTEROL 63.9 MG/DL (40.0-60.0); LDL CHOLESTEROL 153 MG/DL (0-99); TOTAL BILIRUBIN ADULT 0.2 MG/DL (0.2-1.0)
[2017-05-15 13:58] LABS: HEMOGLOBIN A1b 0.6 %; HEMOGLOBIN Ao 87.3 %; HEMOGLOBIN F 1.5 %; HEMOGLOBIN P3 3.2 %
--- NOTE | 2017-05-15 17:26 | MG ---
cc: NICOLE SHERWOOD M.D. Lab No: [id number] Date: 05/15/2017 Age: Sex: F Race: TECHNIQUE: 17 channel EEG. DESCRIPTION: The background rhythm reveals symmetrical alpha rhythm frequency 8 Hz amplitude is 20-30 microvolts. During drowsiness there is slowing in the theta frequency. Photic results in a normal driving response. INTERPRETATION: Normal EEG. MD RADHA Santana/CELIA /3:18 PM /5:18 PM
[2017-05-15 18:28] VITALS: BP 149/77; PULSE 80; RESP 18; TEMP 98.2; O2SAT 100
--- NOTE | 2017-05-15 18:33 | EKG ---
Date Performed: 05/15/2017 Time Performed: 17:27:47 PTAGE: 51 years EKG: Sinus rhythm POSSIBLE LEFT ATRIAL ENLARGEMENT incomplete right bundle branch block Nonspecific T wave changes ABN ORMAL ECG No significant change from prior electrocardiogram. PREVIOUS TRACING : 12/21/2016 19.17 DOCTOR: Darin Angel Interpretating Date/Time 05/15/2017 18:31:58
[2017-05-15] MEDS: LORazepam 1 MG TAB PO PRN ×2 (20:02→20:51)
[2017-05-15] MEDS: QUEtiapine FUMARATE 25 MG TAB PO SCH (20:50)
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
[2017-05-16 06:30] VITALS: BP 111/60; PULSE 90; RESP 19; TEMP 97; O2SAT 96
[2017-05-16] MEDS: REMOVE OLD PATCH T-DERMAL SCH (09:00)
[2017-05-16] MEDS: NICOTINE 21 MG/24 HR PATCH T-DERMAL SCH (09:00)
[2017-05-16] MEDS: THIAMINE HCL 100 MG TAB PO SCH (09:35)
[2017-05-16] MEDS: lamoTRIgine 25 MG TAB PO SCH ×2 (09:36→21:19)
[2017-05-16] MEDS: QUEtiapine FUMARATE 25 MG TAB PO SCH ×2 (09:36→21:00)
[2017-05-16] MEDS: FOLIC ACID 1 MG TAB PO SCH (09:36)
[2017-05-16] MEDS: levETIRAcetam 500 MG TAB PO SCH ×2 (09:36→21:19)
[2017-05-16] MEDS ORDERED: GADODIAMIDE PF 287 MG/ML 20 ML VIAL (for RAD MRI) IVCONTRAST ONE (14:28)
--- NOTE | 2017-05-16 16:07 | RADRPT ---
EXAM DATE/TIME: 05/16/2017 14:19 [place] COMPARISON: No previous studies available for comparison. INDICATIONS : Pituitary mass. CONTRAST: 15 cc Omniscan (gadodiamide) IV MEDICAL HISTORY : Hypertension. SURGICAL HISTORY : None. ENCOUNTER: Initial ACUITY: 1 day PAIN SCORE: 0/10 LOCATION: cranial TECHNIQUE: Multiplanar, multisequence MRI of the brain was performed both prior to and following the administrat ion of paramagnetic contrast. FINDINGS: CEREBRUM: The ventricles are normal for age. No evidence of midline shift, mass lesion, hemorrhage or acute in farction. No extraaxial fluid collections are seen. 10 x 11 x 10 mm mass is seen in the sella turcic a. This has inherently bright T1 signal on the precontrast images, probably of the posterior pituitar y. There is decreased enhancement of the mass relative to the rest of the pituitary. There is no sign ificant mass effect on adjacent structures, including the optic chiasm. Pituitary stalk is midline.. WHITE MATTER: Mild, scattered chronic c no abnormality seen in the white matter of both 3 bral hemispheres. POSTERIOR FOSSA: The cerebellum and brainstem are intact. The 4th ventricle is midline. The cerebellopontine angle is unremarkable. The cerebellar tonsils are normal in position. DIFFUSION IMAGING: No focal areas of restricted diffusion are seen. No evidence of acute infarction. EXTRACRANIAL: The visualized portions of the orbits and paranasal sinuses are unremarkable. POST-CONTRAST: No abnormal areas of parenchymal or dural enhancement. No evidence of blood-brain barrier breakdown. CONCLUSION: 1. 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 No significant mass effect on adjacent structures. 2. Mild chronic white matter changes, nonspecific. Chronic small vessel ischemic changes and multiple sclerosis would be in the differential. Javier Alfaro MD on May 16, 2017 at 16:02 Board Certified Radiologist. This report was verified electronically.
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
[2017-05-16 18:00] VITALS: BP 132/88; PULSE 82; RESP 18; TEMP 97.7; O2SAT 100
[2017-05-16] MEDS: traZODone HCL 50 MG TAB PO PRN (21:19)
[2017-05-17 05:40] VITALS: BP 110/59; PULSE 74; RESP 16; TEMP 98.4; O2SAT 100
[2017-05-17] MEDS: FOLIC ACID 1 MG TAB PO SCH (08:44)
[2017-05-17] MEDS: THIAMINE HCL 100 MG TAB PO SCH (08:44)
[2017-05-17] MEDS: lamoTRIgine 25 MG TAB PO SCH ×2 (08:44→20:46)
[2017-05-17] MEDS: QUEtiapine FUMARATE 25 MG TAB PO SCH ×2 (08:44→20:46)
[2017-05-17] MEDS: levETIRAcetam 500 MG TAB PO SCH ×2 (08:45→20:46)
[2017-05-17] MEDS: REMOVE OLD PATCH T-DERMAL SCH (08:45)
[2017-05-17] MEDS: NICOTINE 21 MG/24 HR PATCH T-DERMAL SCH (08:45)
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
[2017-05-17] MEDS: traZODone HCL 50 MG TAB PO PRN (20:46)
[2017-05-18 05:32] VITALS: BP 110/66; PULSE 86; RESP 17; TEMP 98; O2SAT 100
[2017-05-18] MEDS: QUEtiapine FUMARATE 25 MG TAB PO SCH ×2 (08:12→21:30)
[2017-05-18] MEDS: FOLIC ACID 1 MG TAB PO SCH (08:12)
[2017-05-18] MEDS: THIAMINE HCL 100 MG TAB PO SCH (08:12)
[2017-05-18] MEDS: levETIRAcetam 500 MG TAB PO SCH ×2 (08:12→21:30)
[2017-05-18] MEDS: lamoTRIgine 25 MG TAB PO SCH ×2 (08:13→21:31)
[2017-05-18] MEDS: NICOTINE 21 MG/24 HR PATCH T-DERMAL SCH (09:00)
[2017-05-18] MEDS: REMOVE OLD PATCH T-DERMAL SCH (09:00)
--- NOTE | 2017-05-18 12:11 | HHI.PYPN ---
Subjective Remarks Patient seen and examined with counselor and nurse. Chart reviewed. Case discussed with nursing staff. On my examination today, patient continues to be delayed with respect to her thought process. She is confused and repeats material she has previously shared several times throughout the interview. She denies AVH but appears a little internally preoccupied still. She has an irritable edge. She believes that her is trying to get her out of the house because he wants to bring other women in. Denies side effects from medications. No physical complaints. Review of Systems ROS Limitations: Poor Historian Except as stated in HPI: all other systems reviewed are Neg Objective Alert: Yes [place]: Person, Place Mood: Other (somewhat irritable) Affect: Restricted Memory Intact: Comment (Not formally assessed) Hallucinations: Auditory (Denies AVH, does appear a little int stim) Delusions: No Delusion Type: Other (Possible paranoia, unclear) Suicidal: Ideation (No SI) Homicidal: Ideation (No HI, unclear she is reliable to contract for safety.) Insight/Judgment Poor Remarks No motor abnormalities noted. No ictal activity noted. Grooming and hygiene poor. Speech somewhat perseverative. Labs Labs reviewed. Repeat TFTs wnl. HIV pending. RPR wnl. Vitamin D level low. Vitals/IOs Vital Signs Date Time Temp Pulse Resp B/P (MAP) Pulse Ox O2 Delivery O2 Flow Rate FiO2 05/18/17 05:32 98.0 86 17 110/66 (81) 100 05/14/17 08:34 Room Air Assessment & Plan Problem List: (1) Other psychotic disorder not due to a substance or known physiological condition ICD Codes: F28 - Other psychotic disorder not due to a substance or known physiological condition (2) Dementia in other diseases classified elsewhere with behavioral disturbance ICD Codes: F02.81 - Dementia in other diseases classified elsewhere with behavioral disturbance Assessment & Plan Titrate Seroquel to 50 mg twice daily. Initiate vitamin D supplement. Plan to check follow-up vitamin D level on an outpatient basis. Neurology input appreciated. Continue to monitor on the inpatient unit. Continue other medications and care as ordered. Justification for Cont. Inpt. Med changes. 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 Risk for decompensation in less restrictive environment. Discharge Planning Pending psychiatric stabilization. Possible placement, although patient is resistant to this. Case discussed with counselor. Request HC Surrog/Guard Advoc?: Yes Chaiffetz,Jarrod B. MD May 18, 2017 11:44
[2017-05-18] MEDS ORDERED: ERGOCALCIFEROL (VIT D2) 50,000 UNIT CAP PO SCH (13:00)
[2017-05-18 17:56] VITALS: BP 127/81; PULSE 67; RESP 18; TEMP 97.8; O2SAT 99
[2017-05-19 06:32] VITALS: BP 115/69; PULSE 71; RESP 17; TEMP 98.2; O2SAT 100
[2017-05-19] MEDS: levETIRAcetam 500 MG TAB PO SCH ×2 (09:00→21:56)
[2017-05-19] MEDS: QUEtiapine FUMARATE 25 MG TAB PO SCH ×2 (09:00→21:57)
[2017-05-19] MEDS: THIAMINE HCL 100 MG TAB PO SCH (09:00)
[2017-05-19] MEDS: lamoTRIgine 25 MG TAB PO SCH ×2 (09:00→21:57)
[2017-05-19] MEDS: NICOTINE 21 MG/24 HR PATCH T-DERMAL SCH (09:00)
[2017-05-19] MEDS: REMOVE OLD PATCH T-DERMAL SCH (09:00)
[2017-05-19] MEDS: FOLIC ACID 1 MG TAB PO SCH (09:00)
--- NOTE | 2017-05-19 10:55 | PD.TTN ---
Patient Problems 1. Discharge planning 2. Medication compliance 3. Knowledge deficit 4. Lack of coping skills Progress Toward Goals Provider Present: Dr. Alberto Juares Provider Input: Dr. Juares reported he will check the patient's nursing notes and will write a discharge order if the notes are appropriate. Nurse(s) Present: Mouna Nurse(s) Input: Mouna reported the patient remains compliant with medications and without behavioral disturbance. Patient is social with peers. Psychiatric Counselors Present: STEPHON Vizcarra Psych Therapist Input: Counselor reported the patient remains in good behavioral control and will be discharged home today pending Dr. Juares's order. Counselor has spoken to patient's to inform him of the pendng discharge. Per Dr. Juares's order, counselor called patient's to request he secure all knifes or possible weapons prior to patient returning home. Group Spec/RT/OT/CAMARILLO Present: RABIA Sauer Group Spec/RT/OT/CAMARILLO Input: Jose Alberto reports the patient participates in therapeutic group activities. Discharge Plan [facility] Documentation Scribe: STEPHON Vizcarra Date Resolved: May 19, 2017 Adriana Jose May 19, 2017 10:55
--- NOTE | 2017-05-19 14:24 | HHI.PYPN ---
Subjective Remarks Patient seen and examined with nurse. Chart reviewed. Case discussed in treatment team. Counselor and OT note that patient interacting well with peers on unit. Nurse reports patient has been no behavioral problem. On my exam, patient seems more spontaneous and interactive. Considerably less irritable today. Remains a little forgetful, but this too is less prominent. She would like to go home and remains resistant to [facility] placement. She denies AVH and does not appear internally preoccupied today. Denies any SI or HI. No side effects from medications. No physical complaints. Review of Systems Except as stated in HPI: all other systems reviewed are Neg Objective Alert: Yes [place]: Person, Place Mood: Calm Affect: Appropriate Memory Intact: Comment (Not formally assessed) Hallucinations: Other (Denies AVH) Delusions: No Delusion Type: Other (No delusions elicited) Suicidal: Ideation (Denies SI) Homicidal: Ideation (Denies HI) Insight/Judgment Poor Remarks No motor abnormalities noted. Thought process fairly linear today. Grooming and hygiene fair. Labs Labs reviewed. Vitals/IOs Vital Signs Date Time Temp Pulse Resp B/P (MAP) Pulse Ox O2 Delivery O2 Flow Rate FiO2 05/19/17 06:32 98.2 71 17 115/69 (84) 100 Assessment & Plan Problem List: (1) Other psychotic disorder not due to a substance or known physiological condition ICD Codes: F28 - Other psychotic disorder not due to a substance or known physiological condition (2) Dementia in other diseases classified elsewhere with behavioral disturbance ICD Codes: F02.81 - Dementia in other diseases classified elsewhere with behavioral disturbance Assessment & Plan Patient seems improved with adjustment in Seroquel dose. Continue Seroquel as ordered. We have not noted any sort of behavioral disturbance of the sort alleged in the Solares Act. The patient likely does not meet criteria for extended involuntary hospitalization and is requesting discharge home. She does not want to be placed in [facility] and wishes to return home. I have asked the nurse to have patient medically cleared by consulting physician. I have instructed the counselor to crisis counselor patient's to secure the home of potential means of harm to self/others out of an abundance of caution in anticipation of the patient's return there. Continue other medications and care as ordered. Justification for Cont. Inpt. Discharge planning Discharge Planning Monitor overnight. Probable discharge tomorrow, Thursday. Request HC Surrog/Guard Advoc?: Yes Jarrod Juares MD May 19, 2017 14:24
[2017-05-19 17:43] VITALS: BP 127/71; PULSE 94; RESP 18; TEMP 98.1; O2SAT 100
[2017-05-20 06:24] VITALS: BP 111/54; PULSE 78; RESP 16; TEMP 97.6; O2SAT 97
[2017-05-20] MEDS ORDERED: GNP100TA3 PO (08:12)
[2017-05-20] MEDS ORDERED: ERGO1CAP30 PO (08:12)
[2017-05-20] MEDS ORDERED: LEVE500 PO (08:12)
[2017-05-20] MEDS ORDERED: FOLI1TAB6 PO (08:12)
[2017-05-20] MEDS ORDERED: QUET1TAB7 PO (08:12)
[2017-05-20] MEDS ORDERED: LAMO25 PO (08:12)
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
[2017-05-20] MEDS: NICOTINE 21 MG/24 HR PATCH T-DERMAL SCH (09:00)
[2017-05-20] MEDS: REMOVE OLD PATCH T-DERMAL SCH (09:00)
[2017-05-20] MEDS: FOLIC ACID 1 MG TAB PO SCH (09:01)
[2017-05-20] MEDS: levETIRAcetam 500 MG TAB PO SCH (09:01)
[2017-05-20] MEDS: THIAMINE HCL 100 MG TAB PO SCH (09:01)
[2017-05-20] MEDS: QUEtiapine FUMARATE 25 MG TAB PO SCH (09:02)
[2017-05-20] MEDS: lamoTRIgine 25 MG TAB PO SCH (09:02)
== END 2017-05-20 11:50 | disposition home or self-care (01) | DRG 885 ==
LOC: NEPD 00:53 → NEDA 15:17 → H260 16:29
PROVIDERS: ADMIT Psychiatry & Neurology Psychiatry; ATTEND Psychiatry & Neurology Psychiatry
DX: F28 Other psychotic disorder not due to a substance or known physiological condition (principal); F02.81 Dementia in other diseases classified elsewhere, unspecified severity, with behavioral disturbance; F43.25 Adjustment disorder with mixed disturbance of emotions and conduct; G40.909 Epilepsy, unspecified, not intractable, without status epilepticus; I10 Essential (primary) hypertension; F17.210 Nicotine dependence, cigarettes, uncomplicated; K27.9 Peptic ulcer, site unspecified, unspecified as acute or chronic, without hemorrhage or perforation
CPT/HCPCS: 70553; 80053; 80061; 80307; 81001; 82140; 82306; 82607; 83036; 84146; 84425; 84439; 84443; 85025; 86592; 87389; 93005; 95819; A9579

== ENCOUNTER 2017-05-21 13:31 | Emergency (ER) | payer MEDICAID, OTHER ==
[~2017-05-21 13:31] MED LIST changes: -AMLO5 PO; +ERGO1CAP30 PO; -FAMO20TA2 PO; -FOLI1TAB4 PO; +FOLI1TAB6 PO; -GABA600T PO; -GETGO ROLLING W1 MI1; +GNP100TA3 PO; -HYDR-3580 PO; -METO25TA3 PO; -MIRTA15 PO; -NICO14DI T-DERMAL; +QUET1TAB7 PO; -VITA100T2 PO; -WHEEMIS3; -[UNRECOGNIZED DRUG - OTHER]
--- NOTE | 2017-05-21 14:53 | PD ---
HPI Chief Complaint: Medical Clearance Time Seen by Provider: 14:17 Travel History International Travel<30 days: No Contact w/Intl Traveler<30days: No Traveled to known affect area: No History of Present Illness HPI 51-year-old female that presents to the ED for evaluation of Solares act. Patient was Solares acted by police secondary to acting confused. History is somewhat limited from the patient as she herself does appear to be somewhat of a poor historian. She was actually just released yesterday from the hospital after she was Solares acted for trying to hurt her . She tells us that she has not had seizures recently that per charge nurse the police hold her that they believe that she's been having more seizures. She states has not had a seizure. She states that she does not feel confused. She tells me that the police did not bring her out of there was a police report with her. Patient apparently was sent to estimate the [facility] believes that she was also another scope of practice. She does have a history of seizures and dementia and was seen here and had an MRI as well as lab work done. I'll which was negative. Patient was released back to her . She has no other medical issues. She denies any coughs or any pain. Again her history is limited. Per Solares act she was acting confused and she couldn't give them a home or her name so she was Solares acted because of this. She denies any suicidal or homicidal ideation. He denies any drugs or alcohol. PFSH Past Medical History Arthritis: No Asthma: No Autoimmune Disease: No Anxiety: No Depression: Yes Heart Rhythm Problems: No Cancer: No Cardiovascular Problems: No High Cholesterol: No Chemotherapy: No Chest Pain: No Congestive Heart Failure: No COPD: No Cerebrovascular Accident: No Diabetes: No Diminished Hearing: No Endocrine: No GERD: No Genitourinary: No Headaches: No Hiatal Hernia: No Hypertension: Yes Immune Disorder: No Kidney Stones: No Musculoskeletal: No Neurologic: Yes Psychiatric: Yes Reproductive: No Respiratory: No Immunizations Current: Yes Migraines: No Radiation Therapy: No Renal Failure: No Seizures: Yes Sickle Cell Disease: No Sleep Apnea: No Thyroid Disease: No Ulcer: No Menopausal: Yes Past Surgical History AICD: No Arteriovenous Shunt: No Insulin Pump: No Joint Replacement: No Pacemaker: No Social History Alcohol Use: Yes (SOCIALLY) Tobacco Use: Yes (1 PACK PER 3 DAYS) Substance Use: Yes (marijuana) Allergies-Medications (Allergen,Severity, Reaction): Coded Allergies: No Known Allergies (Unverified , 05/14/17) Reported Meds & Prescriptions Reported Meds & Active Scripts Active Ergocalciferol 50,000 Unit Cap 50,000 Units PO Q7D Gnp Vitamin B-1 (Thiamine HCl) 100 Mg Tab 100 Mg PO DAILY 15 Days Folic Acid 1 Mg Tablet 1 Mg PO DAILY 15 Days Quetiapine (Quetiapine Fumarate) 25 Mg Tab 50 Mg PO BID 15 Days Keppra (Levetiracetam) 500 Mg Tab 1,000 Mg PO Q12HR 15 Days Lamictal (Lamotrigine) 25 Mg Tab 50 Mg PO BID 15 Days Review of Systems Except as stated in HPI: all other systems reviewed are Neg Physical Exam Narrative GENERAL: SKIN: Warm and dry. HEAD: Atraumatic. Normocephalic. EYES: Pupils equal and round. No scleral icterus. No injection or drainage. ENT: No nasal bleeding or discharge. Mucous membranes pink and moist. Tongue is midline. No uvula deviation. NECK: Trachea midline. No JVD. CARDIOVASCULAR: Regular rate and rhythm. RESPIRATORY: No accessory muscle use. Clear to auscultation. Breath sounds equal bilaterally. GASTROINTESTINAL: Abdomen soft, non-tender, nondistended. Hepatic and splenic margins not palpable. MUSCULOSKELETAL: Extremities without clubbing, cyanosis, or edema. No obvious deformities. NEUROLOGICAL: Awake and alert and oriented 3. No obvious cranial nerve deficits. Motor grossly within normal limits. Five out of 5 muscle strength in the arms and legs. Normal speech. PSYCHIATRIC: Somewhat confused mood and affect; insight and judgment minimal Data Data Last Documented VS Vital Signs Date Time Temp Pulse Resp B/P (MAP) Pulse Ox O2 Delivery O2 Flow Rate FiO2 05/21/17 17:17 94 20 153/78 (103) 100 Room Air Orders Orders Complete Blood Count With Diff (05/21/17 14:17) Comprehensive Metabolic Panel (05/21/17 14:17) Urinalysis - C+S If Indicated (05/21/17 14:17) Psych Screen (05/21/17 14:17) Drug Screen, Random Urine (05/21/17 14:17) Alcohol (Ethanol) (05/21/17 14:17) Salicylates (Aspirin) (05/21/17 14:17) Tylenol (Acetaminophen) (05/21/17 14:17) Lamictal (Lamotrigine) (05/21/17 14:17) Levetiracetam (05/21/17 14:17) ^ Sitter (05/21/17 14:34) Diet Regular Basic (05/21/17 Dinner) Labs Laboratory Tests Test 05/21/17 14:40 05/21/17 15:00 White Blood Count 6.4 TH/MM3 Red Blood Count 3.36 MIL/MM3 Hemoglobin 12.4 GM/DL Hematocrit 35.0 % Mean Corpuscular Volume 104.1 FL Mean Corpuscular Hemoglobin 36.8 PG Mean Corpuscular Hemoglobin Concent 35.3 % Red Cell Distribution Width 14.0 % Platelet Count 338 TH/MM3 Mean Platelet Volume 7.0 FL Neutrophils (%) (Auto) 46.5 % Lymphocytes (%) (Auto) 41.1 % Monocytes (%) (Auto) 8.9 % Eosinophils (%) (Auto) 2.5 % Basophils (%) (Auto) 1.0 % Neutrophils # (Auto) 3.0 TH/MM3 Lymphocytes # (Auto) 2.6 TH/MM3 Monocytes # (Auto) 0.6 TH/MM3 Eosinophils # (Auto) 0.2 TH/MM3 Basophils # (Auto) 0.1 TH/MM3 CBC Comment DIFF FINAL Differential Comment Blood Urea Nitrogen 17 MG/DL Creatinine 0.66 MG/DL Random Glucose 111 MG/DL Total Protein 7.6 GM/DL Albumin 3.5 GM/DL Calcium Level 9.5 MG/DL Alkaline Phosphatase 135 U/L Aspartate Amino Transf (AST/SGOT) 26 U/L Alanine Aminotransferase (ALT/SGPT) 24 U/L Total Bilirubin 0.2 MG/DL Sodium Level 138 MEQ/L Potassium Level 4.2 MEQ/L Chloride Level 106 MEQ/L Carbon Dioxide Level 24.3 MEQ/L Anion Gap 8 MEQ/L Estimat Glomerular Filtration Rate 114 ML/MIN Salicylates Level 2.8 MG/DL Acetaminophen Level LESS THAN 2.0 MCG/ML Ethyl Alcohol Level LESS THAN 3 MG/DL Urine Color YELLOW Urine Turbidity HAZY Urine pH 6.5 Urine Specific [place] 1.027 Urine Protein TRACE mg/dL Urine Glucose (UA) NEG mg/dL Urine Ketones NEG mg/dL Urine Occult Blood NEG Urine Nitrite NEG Urine Bilirubin NEG Urine Urobilinogen LESS THAN 2.0 MG/DL Urine Leukocyte Esterase MOD Urine RBC 1 /hpf Urine WBC 1 /hpf Urine Squamous Epithelial Cells 8 /hpf Urine Bacteria RARE /hpf Microscopic Urinalysis Comment CULT NOT INDICATED Urine Opiates Screen NEG Urine Barbiturates Screen NEG Urine Amphetamines Screen NEG Urine Benzodiazepines Screen NEG Urine Cocaine Screen NEG Urine Cannabinoids Screen NEG MDM Medical Decision Making Medical Screen Exam Complete: Yes Emergency Medical Condition: Yes Medical Record Reviewed: Yes Interpretation(s) CBC & BMP Diagram 05/21/17 14:40 Total Protein 7.6, Albumin 3.5, Calcium Level 9.5, Alkaline Phosphatase 135 H, Aspartate Amino Transf (AST/SGOT) 26, Alanine Aminotransferase (ALT/SGPT) 24, Total Bilirubin 0.2 tox negative Differential Diagnosis Depression versus suicidal ideation versus anxiety versus adjustment disorder versus mood disorder versus bipolar disorder versus schizophrenia versus paranoid disorder versus psychosis versus substance abuse versus alcohol abuse versus alcohol induced psychosis versus homicidality addition versus cutting versus personality disorder Narrative Course 51-year-old female that presents to the ED for evaluation of psych. Patient was properly examined and was found to have signs and symptoms of unclear etiology at this time. She has a complicated history as she does have a history of psych and does appear to be somewhat confused. She was just released yesterday. From the blood work available from the previous admission she did not have any of her seizure medications levels done. No family members at bedside. At this time labs were drawn. Patient will be medically clear. Okay to be seen by psych. Mental health screening was discussed with the patient. Patient was seen by psychiatry and the Solares act was lifted by the psychiatrist. Patient was told to follow with outpatient psychiatry. Close follow with PCP. See ED worsening symptoms. Continue taking her medications as prescribed her doctor. Diagnosis Primary Impression: Dementia in other diseases classified elsewhere with behavioral disturbance Patient Instructions: General Instructions Additional Instructions: Follow up with psych. See ED if worst. Med/Other Pt SpecificInfo: No Change to Meds Disposition: 01 DISCHARGE HOME Condition: Stable Jaret Mensah May 21, 2017 14:53
[2017-05-21 15:20] LABS: BASOPHIL # 0.1 TH/MM3 (0-0.2); EOSINOPHIL # 0.2 TH/MM3 (0-0.4); EOSINOPHIL % 2.5 % (0.0-4.0); HEMO FLAGS DIFF FINAL; LYMPH % 41.1 % (9.0-44.0); LYMPHOCYTE # 2.6 TH/MM3 (1.0-4.8); MEAN CELL VOLUME 104.1 FL (80.0-100.0); MEAN CORPUSCULAR HEMOGLOBIN 36.8 PG (27.0-34.0); MEAN CORPUSCULAR HGB CONC 35.3 % (32.0-36.0); MONO % 8.9 % (0.0-8.0); NEUT % 46.5 % (16.0-70.0); PLATELET COUNT 338 TH/MM3 (150-450); RED BLOOD COUNT 3.36 MIL/MM3 (4.00-5.30); WHITE BLOOD COUNT 6.4 TH/MM3 (4.0-11.0)
[2017-05-21 15:43] LABS: BACTERIA, URINE RARE /hpf; BLOOD, URINE NEG (NEG); COMMENT (UR) CULT NOT INDICATED; CULTURE IF INDICATED CULT NOT INDICATED; GLUCOSE,URINE NEG (NEG); KETONE, URINE NEG (NEG); NITRITE,URINE NEG (NEG); PH, URINE 6.5 (5.0-8.5); SQUAMOUS EPITHELIAL CELL URINE 8 /hpf (0-5); URINE COLOR YELLOW (YELLW/STRAW)
[2017-05-21 15:44] LABS: ALT (GPT) 24 U/L (10-53); ANION GAP 8 MEQ/L (5-15); AST (GOT) 26 U/L (15-37); BICARBONATE 24.3 MEQ/L (21.0-32.0); BLOOD UREA NITROGEN 17 MG/DL (7-18); CHLORIDE 106 MEQ/L (98-107); GLOMERULAR FILTRATION RATE 114 ML/MIN (>89); POTASSIUM 4.2 MEQ/L (3.5-5.1); SODIUM (NA) 138 MEQ/L (136-145)
[2017-05-21 15:46] LABS: ALKALINE PHOSPHATASE 135 U/L (45-117); TOTAL BILIRUBIN ADULT 0.2 MG/DL (0.2-1.0)
[2017-05-21 15:52] LABS: ACETAMINOPHEN LESS THAN 2.0 MCG/ML (10.0-30.0); ALCOHOL LESS THAN 3 MG/DL (0-5)
[2017-05-21 17:17] VITALS: BP 153/78; PULSE 94; RESP 20; O2SAT 100
--- NOTE | 2017-05-21 18:55 | PD ---
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 The Solares act alleges that the patient was confused . She was actually just released yesterday from the hospital after she was Solares acted for trying to hurt her . The patient is seen with nurse Zoila. She is alert, partial orientation to time , oriented to place. She is calm, pleasant . There is no psychosis and no jared. No suicidality. She denies that she made any attempts at hurting anyone and is requesting discharge. She tells me that she will be staying with her landlady for some days. Collateral information is obtained by nursing staff. He inform us that the patient called the police after she became upset with him while discussing her possible placement into a SNF. [facility] Past Medical History Medical History: Unable to Obtain Arthritis: No Asthma: No Autoimmune Disease: No Anxiety: No Depression: Yes Heart Rhythm Problems: No Cancer: No Cardiovascular Problems: No High Cholesterol: No Chemotherapy: No Chest Pain: No Congestive Heart Failure: No COPD: No Cerebrovascular Accident: No Diabetes: No Diminished Hearing: No Endocrine: No GERD: No Genitourinary: No Headaches: No Hiatal Hernia: No Hypertension: Yes Immune Disorder: No Kidney Stones: No Musculoskeletal: No Neurologic: Yes Psychiatric: Yes Reproductive: No Respiratory: No Immunizations Current: Yes Migraines: No Radiation Therapy: No Renal Failure: No Seizures: Yes Sickle Cell Disease: No Sleep Apnea: No Thyroid Disease: No Ulcer: No Tetanus Vaccination: Unknown Influenza Vaccination: No ?: Not Menopausal: Yes Past Surgical History Surgical History: Unable to Obtain AICD: No Arteriovenous Shunt: No Insulin Pump: No Joint Replacement: No Pacemaker: No Psychiatric History Psychiatric History Hx Psychiatric Treatment: PATIENT WAS LAST ADMITTED TO [facility] FROM 05/14/17 TO 05/20/17 FOR ADJUSTMENT DISORDER. History of Inpatient Treatment: Yes Guns or firearms in home: No Social History female. Lives with . On disability Hx Alcohol Use: Yes (SOCIALLY) Hx Tobacco Use: Yes (1 PACK PER 3 DAYS) Hx Substance Use: No Hx of Substance Use Treatment: No Allergies-Medications (Allergen,Severity, Reaction): Coded Allergies: No Known Allergies (Unverified , 05/14/17) Reported Meds & Prescriptions Reported Meds & Active Scripts Active Ergocalciferol 50,000 Unit Cap 50,000 Units PO Q7D Gnp Vitamin B-1 (Thiamine HCl) 100 Mg Tab 100 Mg PO DAILY 15 Days Folic Acid 1 Mg Tablet 1 Mg PO DAILY 15 Days Quetiapine (Quetiapine Fumarate) 25 Mg Tab 50 Mg PO BID 15 Days Keppra (Levetiracetam) 500 Mg Tab 1,000 Mg PO Q12HR 15 Days Lamictal (Lamotrigine) 25 Mg Tab 50 Mg PO BID 15 Days Review of Systems ROS Limitations: Poor Historian Except as stated in HPI: all other systems reviewed are Neg Exam Alert: Yes [place]: Person, Place, Date (partial March 20, 2001) Mood: Calm Affect: Appropriate Speech: Clear, Logical Eye Contact: Normal Memory Intact: Comment (Not t etsed) Hallucinations: Other (Negative) Delusions: No Suicidal: Ideation (deneis any) Homicidal: Ideation (deneis any) Insight/Judgement Poor. Poor [facility] Medical Decision Making Medical Record Reviewed: Yes Assessment/Plan This patient does not present any criteria for BA. She was released from inpatient treatment yesterday. She is not psychotic, not manic. no suicidal or homicidal ideation. Has documented mild cognitive impairment as baseline. Does not meet criteria for inpatient treatment. BA is lifted. Cleared for discharge from psychaitry. Orders Orders Complete Blood Count With Diff (05/21/17 14:17) Comprehensive Metabolic Panel (05/21/17 14:17) Urinalysis - C+S If Indicated (05/21/17 14:17) Psych Screen (05/21/17 14:17) Drug Screen, Random Urine (05/21/17 14:17) Alcohol (Ethanol) (05/21/17 14:17) Salicylates (Aspirin) (05/21/17 14:17) Tylenol (Acetaminophen) (05/21/17 14:17) Lamictal (Lamotrigine) (05/21/17 14:17) Levetiracetam (05/21/17 14:17) ^ Sitter (05/21/17 14:34) Diet Regular Basic (05/21/17 Dinner) Results Vital Signs Date Time Temp Pulse Resp B/P (MAP) Pulse Ox O2 Delivery O2 Flow Rate FiO2 05/21/17 17:17 94 20 153/78 (103) 100 Room Air Laboratory Tests Test 05/21/17 14:40 05/21/17 15:00 White Blood Count 6.4 Red Blood Count 3.36 Hemoglobin 12.4 Hematocrit 35.0 Mean Corpuscular Volume 104.1 Mean Corpuscular Hemoglobin 36.8 Mean Corpuscular Hemoglobin Concent 35.3 Red Cell Distribution Width 14.0 Platelet Count 338 Mean Platelet Volume 7.0 Neutrophils (%) (Auto) 46.5 Lymphocytes (%) (Auto) 41.1 Monocytes (%) (Auto) 8.9 Eosinophils (%) (Auto) 2.5 Basophils (%) (Auto) 1.0 Neutrophils # (Auto) 3.0 Lymphocytes # (Auto) 2.6 Monocytes # (Auto) 0.6 Eosinophils # (Auto) 0.2 Basophils # (Auto) 0.1 CBC Comment DIFF FINAL Differential Comment Blood Urea Nitrogen 17 Creatinine 0.66 Random Glucose 111 Total Protein 7.6 Albumin 3.5 Calcium Level 9.5 Alkaline Phosphatase 135 Aspartate Amino Transf (AST/SGOT) 26 Alanine Aminotransferase (ALT/SGPT) 24 Total Bilirubin 0.2 Sodium Level 138 Potassium Level 4.2 Chloride Level 106 Carbon Dioxide Level 24.3 Anion Gap 8 Estimat Glomerular Filtration Rate 114 Salicylates Level 2.8 Acetaminophen Level LESS THAN 2.0 Ethyl Alcohol Level LESS THAN 3 Urine Color YELLOW Urine Turbidity HAZY Urine pH 6.5 Urine Specific [place] 1.027 Urine Protein TRACE Urine Glucose (UA) NEG Urine Ketones NEG Urine Occult Blood NEG Urine Nitrite NEG Urine Bilirubin NEG Urine Urobilinogen LESS THAN 2.0 Urine Leukocyte Esterase MOD Urine RBC 1 Urine WBC 1 Urine Squamous Epithelial Cells 8 Urine Bacteria RARE Microscopic Urinalysis Comment CULT NOT INDICATED Urine Opiates Screen NEG Urine Barbiturates Screen NEG Urine Amphetamines Screen NEG Urine Benzodiazepines Screen NEG Urine Cocaine Screen NEG Urine Cannabinoids Screen NEG Diagnosis Primary Impression: Dementia in other diseases classified elsewhere with behavioral disturbance Psychiatrically Cleared: Yes Patient Instructions: General Instructions Additional Instructions: Follow up with psych. See ED if worst. Med/ Other Pt Specific Info: No Change to Meds Disposition: 01 DISCHARGE HOME Condition: Stable Denise Strickland May 21, 2017 18:55
[2017-05-23 14:10] LABS: LEVETIRACETAM 37.4 mcg/mL (12.0 - 46.0)
== END 2017-05-21 19:21 | disposition home or self-care (01) ==
LOC: NEPE 13:31 → NEPJ 19:21
DX: F03.91 Unspecified dementia, unspecified severity, with behavioral disturbance (principal); F32.9 Major depressive disorder, single episode, unspecified; I10 Essential (primary) hypertension; F17.200 Nicotine dependence, unspecified, uncomplicated; Z79.899 Other long term (current) drug therapy
CPT/HCPCS: 80053; 80175; 80177; 80307; 81001; 85025; 99283

== ENCOUNTER 2017-06-04 02:03 | Emergency (ER) | payer OTHER ==
[~2017-06-04] VITALS: Ht 170.2 cm; Wt 70.0 kg
[2017-06-04 02:12] VITALS: BP 154/56; PULSE 106; RESP 24; TEMP 97.6; O2SAT 100
[2017-06-04] MEDS ORDERED: SODIUM CHLOR 0.9% 1000 ML INJ 1,000 ML IV SCH (02:19)
--- NOTE | 2017-06-04 02:32 | PD ---
HPI Chief Complaint: Altered Mental Status Time Seen by Provider: 02:18 Travel History International Travel<30 days: No Contact w/Intl Traveler<30days: No Traveled to known affect area: No History of Present Illness HPI Patient is a 51-year-old female with history of hypertension, seizure, and adjustment disorder, presents to emergency room with EMS for evaluation of altered mental status. As per EMS, patient was found an apartment complex knocking on people's door asking for help. Patient reports that she was confused and was not sure where she was. Patient is currently alert to person and place at this time, patient is confused. Patient reports that she is cold, denies headache/dizzyness. Denies chest pain/sob. Patient denies any alcohol abuse or drug abuse. Patient has no recollection of tonight's events PFSH Past Medical History Arthritis: No Asthma: No Autoimmune Disease: No Anxiety: No Depression: Yes Heart Rhythm Problems: No Cancer: No Cardiovascular Problems: No High Cholesterol: No Chemotherapy: No Chest Pain: No Congestive Heart Failure: No COPD: No Cerebrovascular Accident: No Diabetes: No Patient Takes Glucophage: No Diminished Hearing: No Endocrine: No GERD: No Genitourinary: No Headaches: No Hiatal Hernia: No Hypertension: Yes Immune Disorder: No Kidney Stones: No Musculoskeletal: No Neurologic: Yes Psychiatric: Yes Reproductive: No Respiratory: No Immunizations Current: Yes Migraines: No Radiation Therapy: No Renal Failure: No Seizures: Yes Sickle Cell Disease: No Sleep Apnea: No Thyroid Disease: No Ulcer: No ?: Unknown Menopausal: Yes Past Surgical History AICD: No Arteriovenous Shunt: No Insulin Pump: No Joint Replacement: No Pacemaker: No Social History Alcohol Use: Yes (SOCIALLY) Tobacco Use: Yes (1 PACK PER 3 DAYS) Substance Use: No Allergies-Medications (Allergen,Severity, Reaction): Coded Allergies: No Known Allergies (Unverified , 05/14/17) Reported Meds & Prescriptions Reported Meds & Active Scripts Active Ergocalciferol 50,000 Unit Cap 50,000 Units PO Q7D Gnp Vitamin B-1 (Thiamine HCl) 100 Mg Tab 100 Mg PO DAILY 15 Days Folic Acid 1 Mg Tablet 1 Mg PO DAILY 15 Days Quetiapine (Quetiapine Fumarate) 25 Mg Tab 50 Mg PO BID 15 Days Keppra (Levetiracetam) 500 Mg Tab 1,000 Mg PO Q12HR 15 Days Lamictal (Lamotrigine) 25 Mg Tab 50 Mg PO BID 15 Days Review of Systems ROS Limitations: Altered Mental Status General / Constitutional: Positive: Chills, No: Fever Eyes: No: Visual changes HENT: No: Headaches Cardiovascular: No: Chest Pain or Discomfort Respiratory: No: Shortness of Breath Gastrointestinal: No: Abdominal Pain Genitourinary: No: Dysuria Musculoskeletal: No: Pain Skin: No Rash Neurologic: No: Weakness Psychiatric: No: Depression Endocrine: No: Polydipsia Hematologic/Lymphatic: No: Easy Bruising Physical Exam Narrative GENERAL: Mild distress SKIN: Focused skin assessment warm/dry. HEAD: Atraumatic. Normocephalic. EYES: Pupils equal and round. No scleral icterus. No injection or drainage. ENT: No nasal bleeding or discharge. Mucous membranes pink and moist. NECK: Trachea midline. No JVD. CARDIOVASCULAR: Tachycardic. No murmur appreciated. RESPIRATORY: No accessory muscle use. Clear to auscultation. Breath sounds equal bilaterally. GASTROINTESTINAL: Abdomen soft, non-tender, nondistended. Hepatic and splenic margins not palpable. MUSCULOSKELETAL: No obvious deformities. No clubbing. No cyanosis. No edema. NEUROLOGICAL: Awake and alert. No obvious cranial nerve deficits. Motor grossly within normal limits. Normal speech. PSYCHIATRIC: Flat mood and affect Data Data Last Documented VS Vital Signs Date Time Temp Pulse Resp B/P (MAP) Pulse Ox O2 Delivery O2 Flow Rate FiO2 06/04/17 05:32 110 20 95/50 (65) 98 Room Air 06/04/17 02:12 97.6 Orders Orders Ammonia (06/04/17 02:18) Complete Blood Count With Diff (06/04/17 02:19) Comprehensive Metabolic Panel (06/04/17 02:19) Urinalysis - C+S If Indicated (06/04/17 02:19) Electrocardiogram (06/04/17 02:19) Oximetry (06/04/17 02:19) Iv Access Insert/Monitor (06/04/17 02:19) Ecg Monitoring (06/04/17 02:19) Phenytoin (Dilantin) (06/04/17 02:19) Drug Screen, Random Urine (06/04/17 02:19) Alcohol (Ethanol) (06/04/17 02:19) Salicylates (Aspirin) (06/04/17 02:19) Tylenol (Acetaminophen) (06/04/17 02:19) Creatine Kinase (Cpk) (06/04/17 02:19) Prothrombin Time / Inr (Pt) (06/04/17 02:19) Act Partial Throm Time (Ptt) (06/04/17 02:19) Troponin I (06/04/17 02:19) Chest, Single Ap (06/04/17 02:19) Ct Brain W/O Iv Contrast(Rout) (06/04/17 02:19) Sodium Chlor 0.9% 1000 Ml Inj (Ns 1000 M (06/04/17 02:19) Lamictal (Lamotrigine) (06/04/17 02:22) Psych Screen (06/04/17 03:21) Sodium Chlor 0.9% 1000 Ml Inj (Ns 1000 M (06/04/17 05:45) ^ Straight Catheter (06/04/17 05:38) Labs Laboratory Tests Test 06/04/17 02:30 06/04/17 03:35 White Blood Count 7.0 TH/MM3 Red Blood Count 3.53 MIL/MM3 Hemoglobin 12.2 GM/DL Hematocrit 35.6 % Mean Corpuscular Volume 100.9 FL Mean Corpuscular Hemoglobin 34.6 PG Mean Corpuscular Hemoglobin Concent 34.3 % Red Cell Distribution Width 13.2 % Platelet Count 363 TH/MM3 Mean Platelet Volume 7.3 FL Neutrophils (%) (Auto) 48.0 % Lymphocytes (%) (Auto) 43.6 % Monocytes (%) (Auto) 6.6 % Eosinophils (%) (Auto) 1.0 % Basophils (%) (Auto) 0.8 % Neutrophils # (Auto) 3.4 TH/MM3 Lymphocytes # (Auto) 3.1 TH/MM3 Monocytes # (Auto) 0.5 TH/MM3 Eosinophils # (Auto) 0.1 TH/MM3 Basophils # (Auto) 0.1 TH/MM3 CBC Comment DIFF FINAL Differential Comment Prothrombin Time 11.4 SEC Prothromb Time International Ratio 1.0 RATIO Activated Partial Thromboplast Time 24.7 SEC Blood Urea Nitrogen 9 MG/DL Creatinine 0.71 MG/DL Random Glucose 85 MG/DL Total Protein 7.4 GM/DL Albumin 3.6 GM/DL Calcium Level 9.8 MG/DL Alkaline Phosphatase 112 U/L Aspartate Amino Transf (AST/SGOT) 13 U/L Alanine Aminotransferase (ALT/SGPT) 15 U/L Total Bilirubin 0.3 MG/DL Sodium Level 140 MEQ/L Potassium Level 3.5 MEQ/L Chloride Level 108 MEQ/L Carbon Dioxide Level 20.1 MEQ/L Anion Gap 12 MEQ/L Estimat Glomerular Filtration Rate 105 ML/MIN Ammonia 22 MCMOL/L Total Creatine Kinase 181 U/L Troponin I LESS THAN 0.02 NG/ML Salicylates Level 4.5 MG/DL Acetaminophen Level LESS THAN 2.0 MCG/ML Phenytoin (Dilantin) Level 0.5 MCG/ML Ethyl Alcohol Level 50 MG/DL MDM Medical Decision Making Medical Screen Exam Complete: Yes Emergency Medical Condition: Yes Medical Record Reviewed: Yes Interpretation(s) EKG at 0238: NSR at 99bpm, qt/qtc: 350/406, no acute st or t wave changes Vital Signs Date Time Temp Pulse Resp B/P (MAP) Pulse Ox O2 Delivery O2 Flow Rate FiO2 06/04/17 02:18 100 Room Air 06/04/17 02:12 97.6 106 24 154/56 (88) 100 Differential Diagnosis Differential includes intracranial hemorrhage, electrolyte abnormality, possible seizure, possible drug abuse/alcohol abuse Narrative Course Patient is a 51-year-old female who presents to emergency room for altered mental status. Patient was found outside an apartment complex knocking on people's door asking for help. A call was made to patient's home, as per patient's and daughter, patient was recently released from penitentiary, she has history of alcohol and drug abuse. Reports that there is a restraining order patient placed against her daughter and she is not allowed to return home. Previous records were reviewed , patient was recently admitted on May 14, 2017 to the psychiatric unit and discharged on May 20, 2017 with a diagnosis of adjustment disorder with mixed disturbance of emotions and conduct. Patient was placed on a office machine servicer apprentice upon arrival to the emergency room. Lab work including ammonia level, drug screen, alcohol level, CBC, BMP ordered. Ct of head ordered. Plan to monitor on office machine servicer apprentice Vital Signs Date Time Temp Pulse Resp B/P (MAP) Pulse Ox O2 Delivery O2 Flow Rate FiO2 06/04/17 02:18 100 Room Air 06/04/17 02:12 97.6 106 24 154/56 (88) 100 Laboratory Tests Test 06/04/17 02:30 06/04/17 03:35 White Blood Count 7.0 TH/MM3 (4.0-11.0) Red Blood Count 3.53 MIL/MM3 (4.00-5.30) Hemoglobin 12.2 GM/DL (11.6-15.3) Hematocrit 35.6 % (35.0-46.0) Mean Corpuscular Volume 100.9 FL (80.0-100.0) Mean Corpuscular Hemoglobin 34.6 PG (27.0-34.0) Mean Corpuscular Hemoglobin Concent 34.3 % (32.0-36.0) Red Cell Distribution Width 13.2 % (11.6-17.2) Platelet Count 363 TH/MM3 (150-450) Mean Platelet Volume 7.3 FL (7.0-11.0) Neutrophils (%) (Auto) 48.0 % (16.0-70.0) Lymphocytes (%) (Auto) 43.6 % (9.0-44.0) Monocytes (%) (Auto) 6.6 % (0.0-8.0) Eosinophils (%) (Auto) 1.0 % (0.0-4.0) Basophils (%) (Auto) 0.8 % (0.0-2.0) Neutrophils # (Auto) 3.4 TH/MM3 (1.8-7.7) Lymphocytes # (Auto) 3.1 TH/MM3 (1.0-4.8) Monocytes # (Auto) 0.5 TH/MM3 (0-0.9) Eosinophils # (Auto) 0.1 TH/MM3 (0-0.4) Basophils # (Auto) 0.1 TH/MM3 (0-0.2) CBC Comment DIFF FINAL Differential Comment Prothrombin Time 11.4 SEC (9.8-11.6) Prothromb Time International Ratio 1.0 RATIO Activated Partial Thromboplast Time 24.7 SEC (24.3-30.1) Blood Urea Nitrogen 9 MG/DL (7-18) Creatinine 0.71 MG/DL (0.50-1.00) Random Glucose 85 MG/DL (74-106) Total Protein 7.4 GM/DL (6.4-8.2) Albumin 3.6 GM/DL (3.4-5.0) Calcium Level 9.8 MG/DL (8.5-10.1) Alkaline Phosphatase 112 U/L (45-117) Aspartate Amino Transf (AST/SGOT) 13 U/L (15-37) Alanine Aminotransferase (ALT/SGPT) 15 U/L (10-53) Total Bilirubin 0.3 MG/DL (0.2-1.0) Sodium Level 140 MEQ/L (136-145) Potassium Level 3.5 MEQ/L (3.5-5.1) Chloride Level 108 MEQ/L (98-107) Carbon Dioxide Level 20.1 MEQ/L (21.0-32.0) Anion Gap 12 MEQ/L (5-15) Estimat Glomerular Filtration Rate 105 ML/MIN (>89) Ammonia 22 MCMOL/L (11-32) Total Creatine Kinase 181 U/L (26-192) Troponin I LESS THAN 0.02 NG/ML Acetaminophen Level LESS THAN 2.0 MCG/ML Phenytoin (Dilantin) Level 0.5 MCG/ML (10.0-20.0) Ethyl Alcohol Level 50 MG/DL (0-5) cbc: wnl bmp: wnl ammonia: [address] of the head: no acute intracranial process Chest x-ray: Possible early intermittent left base pneumonia Patient is now alert and oriented 3, reports that she was just released from police station today and had a drink. Reports that she doesn't remember knocking on people's door tonight. This could be due to etoh intoxication vs possible drug abuse (patient has not given urine sample yet). She could have possible had a seizure today though patient does report that she has been compliant with her medications. Her symptoms tonight were most likely due to etoh. Patient is alert and oriented x 2 with no other complaints. Patient thinks that the year is 2001. She does have a psychiatric history. Will clear patient for psychiatric evaluation Diagnosis Primary Impression: Altered mental status, unspecified Additional Impressions: Alcohol intoxication Seizure Patient Instructions: Narcotic given in the ED Additional Instructions: Please follow up with your primary care doctor Return to ER as needed Please take all medications as prescribed Please drink alcohol responsibility Cassy Rendon DO Jun 04, 2017 02:32
[2017-06-04 02:43] LABS: AUTOMATED NEUTROPHIL # 3.4 TH/MM3 (1.8-7.7); BASOPHIL # 0.1 TH/MM3 (0-0.2); BASOPHIL % 0.8 % (0.0-2.0); EOSINOPHIL # 0.1 TH/MM3 (0-0.4); HEMATOCRIT 35.6 % (35.0-46.0); HEMO FLAGS DIFF FINAL; LYMPH % 43.6 % (9.0-44.0); LYMPHOCYTE # 3.1 TH/MM3 (1.0-4.8); MEAN CELL VOLUME 100.9 FL (80.0-100.0); MEAN CORPUSCULAR HEMOGLOBIN 34.6 PG (27.0-34.0); MEAN CORPUSCULAR HGB CONC 34.3 % (32.0-36.0); MONO % 6.6 % (0.0-8.0); PLATELET COUNT 363 TH/MM3 (150-450); RED BLOOD COUNT 3.53 MIL/MM3 (4.00-5.30); RED CELL DISTRIBUTION WIDTH 13.2 % (11.6-17.2)
[2017-06-04 03:02] LABS: APTT (PATIENT) 24.7 SEC (24.3-30.1); PROTHROMBIN TIME - PATIENT 11.4 SEC (9.8-11.6)
[2017-06-04 03:05] LABS: ANION GAP 12 MEQ/L (5-15)
--- NOTE | 2017-06-04 03:08 | RADRPT ---
EXAM DATE/TIME: 06/04/2017 02:37 [facility] COMPARISON: No previous studies available for comparison. INDICATIONS : Fever and chills. MEDICAL HISTORY : Hypertension. SURGICAL HISTORY : None. ENCOUNTER: Initial ACUITY: 1 day PAIN SCORE: 0/10 LOCATION: Bilateral chest FINDINGS: Slight ill-defined increased density seen left lung base relative to the right. No pleural effusion. No pneumothorax. Normal heart size. CONCLUSION: Possible early or mild left base pneumonia in the proper clinical setting. Javier Alfaro MD on June 04, 2017 at 3:06 Board Certified Radiologist. This report was verified electronically.
--- NOTE | 2017-06-04 03:11 | RADRPT ---
EXAM DATE/TIME: 06/04/2017 02:45 [facility] COMPARISON: MRI BRAIN W & W/O CONTRAST, May 16, 2017, 14:19. INDICATIONS : Altered mental status. RADIATION DOSE: 30.39 CTDIvol (mGy) MEDICAL HISTORY : Hypertension. Seizures. Pituitary mass. SURGICAL HISTORY : None. ENCOUNTER: Initial ACUITY: 1 day PAIN SCALE: 0/10 LOCATION: cranial TECHNIQUE: Multiple contiguous axial images were obtained of the head. Using automated exposure control and adj ustment of the mA and/or kV according to patient size, radiation dose was kept as low as reasonably a chievable to obtain optimal diagnostic quality images. DICOM format image data is available electro nically for review and comparison. FINDINGS: CEREBRUM: The ventricles are normal for age. No evidence of midline shift, mass lesion, hemorrhage or acute in farction. No extra-axial fluid collections are seen. POSTERIOR FOSSA: The cerebellum and brainstem are intact. The 4th ventricle is midline. The cerebellopontine angle i s unremarkable. EXTRACRANIAL: The visualized portion of the orbits is intact. SKULL: The calvaria is intact. No evidence of skull fracture. CONCLUSION: No acute intracranial abnormality demonstrated. Javier Alfaro MD on June 04, 2017 at 3:09 Board Certified Radiologist. This report was verified electronically.
[2017-06-04 03:15] LABS: ALKALINE PHOSPHATASE 112 U/L (45-117); ALT (GPT) 15 U/L (10-53); AST (GOT) 13 U/L (15-37); BICARBONATE 20.1 MEQ/L (21.0-32.0); BLOOD UREA NITROGEN 9 MG/DL (7-18); CHLORIDE 108 MEQ/L (98-107); CREATINE KINASE 181 U/L (26-192); GLOMERULAR FILTRATION RATE 105 ML/MIN (>89); POTASSIUM 3.5 MEQ/L (3.5-5.1); SODIUM (NA) 140 MEQ/L (136-145); TOTAL BILIRUBIN ADULT 0.3 MG/DL (0.2-1.0)
[2017-06-04 03:16] LABS: ACETAMINOPHEN LESS THAN 2.0 MCG/ML (10.0-30.0); ALCOHOL 50 MG/DL (0-5)
[2017-06-04 05:32] VITALS: BP 95/50; PULSE 110; RESP 20; O2SAT 98
[2017-06-04] MEDS ORDERED: SODIUM CHLOR 0.9% 1000 ML INJ 1,000 ML IV ONE (05:45)
[2017-06-04 06:24] LABS: BLOOD, URINE NEG (NEG); COMMENT (UR) CULT NOT INDICATED; CULTURE IF INDICATED CULT NOT INDICATED; GLUCOSE,URINE NEG (NEG); KETONE, URINE NEG (NEG); MUCUS URINE FEW /lpf (OCC); NITRITE,URINE NEG (NEG); SQUAMOUS EPITHELIAL CELL URINE 2 /hpf (0-5); URINE COLOR LIGHT-YELLOW (YELLW/STRAW)
--- NOTE | 2017-06-04 15:04 | EKG ---
Date Performed: 06/04/2017 Time Performed: 02:38:05 PTAGE: 51 years EKG: Sinus rhythm POSSIBLE LEFT ATRIAL ENLARGEMENT POSSIBLE RIGHT VENTRICULAR CONDUCTION DELAY NONSPECIFIC T-WAVE ABNO RMALITY BORDERLINE ECG PREVIOUS TRACING : 06/04/2017 02.37 Compared to prior tracing no significant change DOCTOR: Boubacar Rascon Interpretating Date/Time 06/04/2017 15:02:14
== END 2017-06-04 09:46 | disposition home or self-care (01) ==
LOC: NEPC 02:03
DX: R41.82 Altered mental status, unspecified (principal); R41.0 Disorientation, unspecified; F10.129 Alcohol abuse with intoxication, unspecified; R56.9 Unspecified convulsions; R94.31 Abnormal electrocardiogram [ECG] [EKG]; I10 Essential (primary) hypertension; Z72.0 Tobacco use
CPT/HCPCS: 70450; 71010; 80053; 80175; 80185; 80307; 81001; 82140; 82550; 84484; 85025; 85610; 85730; 93005; 96360; 96361; 99285; J7030

== ENCOUNTER 2017-06-06 13:07 | Emergency (ER) | payer OTHER ==
[2017-06-06 13:25] VITALS: BP 132/80; PULSE 88; RESP 16; TEMP 99.1; O2SAT 99
[2017-06-06] MEDS ORDERED: levETIRAcetam 500 MG TAB PO ONE (13:45)
[2017-06-06] MEDS ORDERED: lamoTRIgine 25 MG TAB PO ONE (13:45)
[2017-06-06] MEDS ORDERED: SODIUM CHLORIDE 0.9% FLUSH 10 ML FLUSH IVF PRN (13:45)
--- NOTE | 2017-06-06 13:47 | PD ---
HPI Chief Complaint: Seizure Time Seen by Provider: 13:42 Travel History International Travel<30 days: No Contact w/Intl Traveler<30days: No Traveled to known affect area: No History of Present Illness HPI This is a 51-year-old female with history of seizure disorder presents via EMS for evaluation. According to EMS the patient was observed standing on the porch attempting to open a door. The technician automated equipment of the house happened to be driving by and when the ulnar of the house approached the patient the patient walked over to a bench, laid down on the bench and then started to have seizure-like activity. The patient is currently resting comfortably, reports that she may have had a seizure today, she is uncertain. Denies any incontinence or tongue biting. She is prescribed Keppra 1000 mg twice a day and Lamictal 50 mg twice a day, she admits that she has not taken in over the past few days and does not know where her medications are. The patient was seen here 2 days ago with somewhat similar presentation. She appears to have poor baseline mental cognition. According to her last visits notes the patient was recently released from correction and her has a restraining order against her and she cannot return home. There was an attempt to set up the patient an appointment with [facility] but she does not remember this. She has no other complaints at this time. PFSH Past Medical History Arthritis: No Asthma: No Autoimmune Disease: No Anxiety: No Depression: Yes Heart Rhythm Problems: No Cancer: No Cardiovascular Problems: No High Cholesterol: No Chemotherapy: No Chest Pain: No Congestive Heart Failure: No COPD: No Cerebrovascular Accident: No Diabetes: No Diminished Hearing: No Endocrine: No GERD: No Genitourinary: No Headaches: No Hiatal Hernia: No Hypertension: Yes Immune Disorder: No Kidney Stones: No Musculoskeletal: No Neurologic: Yes Psychiatric: Yes Reproductive: No Respiratory: No Immunizations Current: Yes Migraines: No Radiation Therapy: No Renal Failure: No Seizures: Yes Sickle Cell Disease: No Sleep Apnea: No Thyroid Disease: No Ulcer: No Menopausal: Yes Past Surgical History AICD: No Arteriovenous Shunt: No Insulin Pump: No Joint Replacement: No Pacemaker: No Social History Alcohol Use: Yes (SOCIALLY) Tobacco Use: Yes (1 PACK PER 3 DAYS) Substance Use: Yes Allergies-Medications (Allergen,Severity, Reaction): Coded Allergies: No Known Allergies (Unverified , 06/06/17) Reported Meds & Prescriptions Reported Meds & Active Scripts Active Keppra (Levetiracetam) 500 Mg Tab 1,000 Mg PO BID 30 Days Lamictal (Lamotrigine) 25 Mg Tab 50 Mg PO BID 30 Days Ergocalciferol 50,000 Unit Cap 50,000 Units PO Q7D Gnp Vitamin B-1 (Thiamine HCl) 100 Mg Tab 100 Mg PO DAILY 15 Days Folic Acid 1 Mg Tablet 1 Mg PO DAILY 15 Days Quetiapine (Quetiapine Fumarate) 25 Mg Tab 50 Mg PO BID 15 Days Keppra (Levetiracetam) 500 Mg Tab 1,000 Mg PO Q12HR 15 Days Lamictal (Lamotrigine) 25 Mg Tab 50 Mg PO BID 15 Days Review of Systems Except as stated in HPI: all other systems reviewed are Neg Physical Exam Narrative GENERAL: Well-developed well-nourished female who is answering questions when prompted and responding to commands appropriately. She is alert to person and place but believes that the year is 2001, this appears to be her baseline. SKIN: Warm and dry. HEAD: Atraumatic. Normocephalic. EYES: Pupils equal and round. No scleral icterus. No injection or drainage. ENT: No nasal bleeding or discharge. Mucous membranes pink and moist. NECK: Trachea midline. No JVD. CARDIOVASCULAR: Regular rate and rhythm. No murmur appreciated. RESPIRATORY: No accessory muscle use. Clear to auscultation. Breath sounds equal bilaterally. GASTROINTESTINAL: Abdomen soft, non-tender, nondistended. Hepatic and splenic margins not palpable. MUSCULOSKELETAL: No obvious deformities. No clubbing. No cyanosis. No edema. NEUROLOGICAL: Awake and alert. No obvious cranial nerve deficits. Motor grossly within normal limits. Normal speech. PSYCHIATRIC: Flat affect Data Data Last Documented VS Vital Signs Date Time Temp Pulse Resp B/P (MAP) Pulse Ox O2 Delivery O2 Flow Rate FiO2 06/06/17 14:13 98 Room Air 06/06/17 14:01 90 18 06/06/17 13:25 99.1 Orders Orders Basic Metabolic Panel (Bmp) (06/06/17 13:38) Alcohol (Ethanol) (06/06/17 13:38) Drug Screen, Random Urine (06/06/17 13:38) Blood Glucose (06/06/17 13:38) Ecg Monitoring (06/06/17 13:38) Iv Access Insert/Monitor (06/06/17 13:38) Oximetry (06/06/17 13:38) Sodium Chloride 0.9% Flush (Ns Flush) (06/06/17 13:45) Levetiracetam (Keppra) (06/06/17 13:45) Lamotrigine (Lamictal) (06/06/17 13:45) Labs Laboratory Tests Test 06/06/17 14:10 06/06/17 14:25 Blood Urea Nitrogen 13 MG/DL Creatinine 0.59 MG/DL Random Glucose 67 MG/DL Calcium Level 9.7 MG/DL Sodium Level 145 MEQ/L Potassium Level 3.8 MEQ/L Chloride Level 115 MEQ/L Carbon Dioxide Level 22.8 MEQ/L Anion Gap 7 MEQ/L Estimat Glomerular Filtration Rate 130 ML/MIN Ethyl Alcohol Level LESS THAN 3 MG/DL Urine Opiates Screen NEG Urine Barbiturates Screen NEG Urine Amphetamines Screen NEG Urine Benzodiazepines Screen NEG Urine Cocaine Screen NEG Urine Cannabinoids Screen NEG MDM Medical Decision Making Medical Screen Exam Complete: Yes Emergency Medical Condition: Yes Medical Record Reviewed: Yes Differential Diagnosis Malingering, medication noncompliance, alcohol child seizure, breakthrough seizure, electrolyte abnormality, hypoglycemia, intracranial hemorrhage Narrative Course I reviewed her recent records thoroughly and her current presentation appears to be her mental status baseline. She had a thorough workup performed on June 04 which revealed an alcohol level of 50 but otherwise no acute abnormalities. She endorses noncompliance with her Keppra and Lamictal medications and so these will be restarted today and she'll be given prescriptions prior to her discharge. She is being given homeless resource packet information as well as a pamphlet on [employer]. 67, otherwise lab work is unremarkable. She was given a taxi pass to go to [facility]. She is stable for discharge. Diagnosis Primary Impression: Medication refill Additional Impression: History of seizure Referrals: [facility] Additional Instructions: Take your medication as prescribed. Follow-up at [facility] as instructed. Return for any emergent medical conditions. Med/Other Pt SpecificInfo: Prescription(s) given Scripts Levetiracetam (Keppra) 500 Mg Tab 1000 MG PO BID for Control Seizures for 30 Days, #120 TAB 0 Refills Prov: Lightburn,Justen Nigel MD 06/06/17 Lamotrigine (Lamictal) 25 Mg Tab 50 MG PO BID for Control Seizures for 30 Days, #120 TAB 0 Refills Prov: Justen Mahajan MD 06/06/17 Disposition: 01 DISCHARGE HOME Condition: Stable Kirk Mccormick Jun 06, 2017 13:47
[2017-06-06 14:01] VITALS: BP 132/80; PULSE 90; RESP 18; O2SAT 99
[2017-06-06 14:13] VITALS: O2SAT 98
[2017-06-06] MEDS ORDERED: LAMO25 PO (14:19)
[2017-06-06] MEDS ORDERED: LEVE500 PO (14:19)
[2017-06-06 14:58] LABS: ANION GAP 7 MEQ/L (5-15); BICARBONATE 22.8 MEQ/L (21.0-32.0); BLOOD UREA NITROGEN 13 MG/DL (7-18); CHLORIDE 115 MEQ/L (98-107); GLOMERULAR FILTRATION RATE 130 ML/MIN (>89); POTASSIUM 3.8 MEQ/L (3.5-5.1); SODIUM (NA) 145 MEQ/L (136-145)
[2017-06-06 14:59] LABS: ALCOHOL LESS THAN 3 MG/DL (0-5)
== END 2017-06-06 15:36 | disposition home or self-care (01) ==
LOC: NEPE 13:07
DX: G40.909 Epilepsy, unspecified, not intractable, without status epilepticus (principal); F17.210 Nicotine dependence, cigarettes, uncomplicated; Z76.0 Encounter for issue of repeat prescription
CPT/HCPCS: 80048; 80307; 99284